=== PATIENT | male | born 1960 | race Caucasian/White ===

== ENCOUNTER 2019-08-11 18:03 | Emergency (ER) | payer MEDICARE, OTHER ==
[~2019-08-11] VITALS: Ht 190.5 cm; Wt 111.1 kg
--- OUTSIDE RECORDS SUMMARY | ~2019-08-11 | XMS | Encounter Summary ---
Demographics + + + | Address | [address] | | | [place] [address] | + + + | Home Phone | | + + + | Preferred Language | Unknown | + + + | Marital Status | | + + + | Judaism Affiliation | Unknown | + + + | Race | Unknown | + + + | Ethnic Group | Unknown | + + + Author + + + | Author | [facility] | | | and [place] | + + + | Organization | [facility] | | | and [place] | + + + | Address | Unknown | + + + | Phone | Unavailable | + + + Support + + +---------+ + | Name | Relationship | Address | Phone | + + +---------+ + | Zulema Moyer | ECON | Unknown | | + + +---------+ + Care Team Providers + +------+ + | Care Fingerer Name | Role | Phone | + +------+ + | Toi Hwang DO | PCP | | + +------+ + Encounter Details +--------+ + + + + | Date | Type | Department | Care Team | Description | +--------+ + + + + | 07/16/ | Orders Only | [facility] | Ulises Rocha, | | | 2017 | | [address] | [address] | | | | | [place], [place] | [facility], | | | | | [address] | [place] [address] | | | | | [phone] | [phone] | | | | | | | | +--------+ + + + + Social History + +-------+ +--------+------+ | Tobacco Use | Types | Packs/Day | Years | Date | | | | | Used | | + +-------+ +--------+------+ | Never Assessed | | | | | + +-------+ +--------+------+ + + + | Sex Assigned at | Date Recorded | | | | + + + | Not on file | | + + + + + + + | Job Start Date | Occupation | Industry | + + + + | Not on file | Not on file | Not on file | + + + + + + + + | Travel History | Travel Start | Travel End | + + + + + + | No recent travel history available. | + + documented as of this encounter Plan of Treatment Not on filedocumented as of this encounter Procedures + +--------+ + + + | Procedure Name | Priori | Date/Time | Associated Diagnosis | Comments | | | ty | | | | + +--------+ + + + | EXTERNAL LAB: [facility] | Routin | 07/16/2016 | | Results for this | | | e | 10:30 AM | | procedure are in the | | | | PDT | | results section. | + +--------+ + + + | LIPID PANEL | Routin | 07/16/2016 | | Results for this | | | e | 10:30 AM | | procedure are in the | | | | PDT | | results section. | + +--------+ + + + | COMPREHENSIVE | Routin | 07/16/2016 | | Results for this | | METABOLIC PANEL | e | 10:30 AM | | procedure are in the | | | | PDT | | results section. | + +--------+ + + + documented in this encounter Results External Lab: [facility] (07/16/2016 10:30 AM PDT) + + + + + + | Component | Value | Ref Range | Performed | Pathologist | | | | | At | Signature | + + + + + + | WBC | 8.10 | 3.80 - 11.00 | EXTERNAL | | | | | 10*3/uL | LAB | | + + + + + + | Red Blood | 5.46 | 4.20 - 5.70 | EXTERNAL | | | Cells | | 10*6/uL | LAB | | | Counted | | | | | + + + + + + | Hemoglobin | 16.7 | 13.2 - 17.0 | EXTERNAL | | | | | g/dL | LAB | | + + + + + + | Hematocrit, | 47.4 | 39.0 - 50.0 % | EXTERNAL | | | POC | | | LAB | | + + + + + + | MCV | 86.9 | 80.0 - 100.0 fL | EXTERNAL | | | | | | LAB | | + + + + + + | MCH | 30.6 | 27.0 - 34.0 pg | EXTERNAL | | | | | | LAB | | + + + + + + | MCHC | 35.2 | 32.0 - 35.5 | EXTERNAL | | | | | g/dL | LAB | | + + + + + + | RDW-CV | 49.4 | 37 - 53 fL | EXTERNAL | | | | | | LAB | | + + + + + + | Platelet | 150 | 150 - 400 | EXTERNAL | | | Count | | 10*3/uL | LAB | | | Plasma | | | | | + + + + + + | MPV | 9.8 | fL | EXTERNAL | | | | | | LAB | | + + + + + + | Differentia | AUTOMATED | | EXTERNAL | | | l Type | | | LAB | | + + + + + + | % Segmented | 66.09 | % | EXTERNAL | | | | | | LAB | | | Neutrophils | | | | | + + + + + + | % | 22.29 | % | EXTERNAL | | | Lymphocytes | | | LAB | | + + + + + + | % Monocytes | 7.79 | % | EXTERNAL | | | | | | LAB | | + + + + + + | % | 2.91 | % | EXTERNAL | | | Eosinophils | | | LAB | | + + + + + + | % Basophils | 0.92 | % | EXTERNAL | | | | | | LAB | | + + + + + + | Absolute | 5.35 | 1.90 - 7.40 | EXTERNAL | | | Segmented | | 10*3/uL | LAB | | | Neutrophils | | | | | + + + + + + | Absolute | 1.80 | 1.00 - 3.90 | EXTERNAL | | | Lymphocytes | | 10*3/uL | LAB | | + + + + + + | Absolute | 0.63 | 0.00 - 0.80 | EXTERNAL | | | Monocytes | | 10*3/uL | LAB | | + + + + + + | Absolute | 0.24 | 0.00 - 0.50 | EXTERNAL | | | Eosinophils | | 10*3/uL | LAB | | + + + + + + | Absolute | 0.07 | 0.00 - 0.10 | EXTERNAL | | | Basophils | | 10*3/uL | LAB | | + + + + + + + + | Specimen | + + | | + + + +---------+ + + | Performing | Address | City/State/Zipcode | Phone Number | | Organization | | | | + +---------+ + + | EXTERNAL LAB | | | | + +---------+ + + Lipid Panel (07/16/2016 10:30 AM PDT) + + + + + + | Component | Value | Ref Range | Performed | Pathologist | | | | | At | Signature | + + + + + + | Cholesterol | 117 | mg/dL | EXTERNAL | | | | | | LAB | | + + + + + + | Triglycerid | 559 (H) | mg/dL | EXTERNAL | | | es | | | LAB | | + + + + + + | HDL | 31 (L) | mg/dL | EXTERNAL | | | | | | LAB | | + + + + + + | LDL, | LDL NOT VALID WHEN TRIG | mg/dL | EXTERNAL | | | Calculated | >400 mg/dL | | LAB | | + + + + + + + + | Specimen | + + | | + + + +---------+ + + | Performing | Address | City/State/Zipcode | Phone Number | | Organization | | | | + +---------+ + + | EXTERNAL LAB | | | | + +---------+ + + Comprehensive Metabolic Panel (07/16/2016 10:30 AM PDT) + + + + + + | Component | Value | Ref Range | Performed | Pathologist | | | | | At | Signature | + + + + + + | Na | 139 | 135 - 145 | EXTERNAL | | | | | mmol/L | LAB | | + + + + + + | K | 4.0 | 3.5 - 4.9 | EXTERNAL | | | | | mmol/L | LAB | | + + + + + + | Cl | 106 | 99 - 109 mmol/L | EXTERNAL | | | | | | LAB | | + + + + + + | CO2 | 23 | 23 - 32 mmol/L | EXTERNAL | | | | | | LAB | | + + + + + + | Anion Gap | 14 | 5 - 20 mmol/L | EXTERNAL | | | | | | LAB | | + + + + + + | Glucose, | 247 (H) | 65 - 99 mg/dL | EXTERNAL | | | Fasting | | | LAB | | + + + + + + | BUN | 12 | 8 - 25 mg/dL | EXTERNAL | | | | | | LAB | | + + + + + + | Creatinine | 0.9 | 0.70 - 1.30 | EXTERNAL | | | | | mg/dL | LAB | | + + + + + + | BUN/Creatin | 13 | | EXTERNAL | | | ine Ratio | | | LAB | | + + + + + + | Calcium | 9.2 | 8.5 - 10.5 | EXTERNAL | | | | | mg/dL | LAB | | + + + + + + | Protein, | 6.6 | 6.3 - 8.2 g/dL | EXTERNAL | | | Total | | | LAB | | + + + + + + | Albumin | 3.7 | 3.6 - 5.0 g/dL | EXTERNAL | | | | | | LAB | | + + + + + + | Globulin | 2.9 | 1.3 - 4.9 g/dL | EXTERNAL | | | | | | LAB | | + + + + + + | A/G Ratio | 1.3 | 1.0 - 2.4 | EXTERNAL | | | | | | LAB | | + + + + + + | Bilirubin | 0.7 | 0.1 - 1.5 mg/dL | EXTERNAL | | | Total | | | LAB | | + + + + + + | ALP, | 118 (H) | 35 - 115 U/L | EXTERNAL | | | External | | | LAB | | + + + + + + | AST | 20 | 10 - 45 U/L | EXTERNAL | | | | | | LAB | | + + + + + + | ALT | 37 | 10 - 65 U/L | EXTERNAL | | | | | | LAB | | + + + + + + | Estimated | >60Comment: GFR <60: | mL/min/1.73_m2 | EXTERNAL | | | GFR | CHRONIC KIDNEY DISEASE, | | LAB | | | | IF FOUND OVER A 3 MONTH | | | | | | PERIOD. GFR <15: KIDNEY | | | | | | FAILURE. FOR | | | | | | AMERICANS, MULTIPLY THE | | | | | | CALCULATED GFR BY 1.210. | | | | + + + + + + + + | Specimen | + + | | + + + +---------+ + + | Performing | Address | City/State/Zipcode | Phone Number | | Organization | | | | + +---------+ + + | EXTERNAL LAB | | | | + +---------+ + + documented in this encounter Visit Diagnoses Not on filedocumented in this encounter"
--- OUTSIDE RECORDS SUMMARY | ~2019-08-11 | XMS ---
Demographics + + + | Address | [address] | | | [place] [address] | + + + | Preferred Language | Unknown | + + + | Marital Status | Unknown | + + + | Adventism Affiliation | Unknown | + + + | Race | Unknown | + + + | Ethnic Group | Unknown | + + + Author + + + | Author | [facility] | + + + | Organization | [facility] | + + + | Address | [address] | | | [place] [address] | + + + | Phone | | + + + Care Team Providers + + + + | Care Power Transformer Assembler Name | Role | Phone | + + + + Unavailable | Unavailable | + + + + PROBLEMS +---------+ + + +--------+ + + | Type | Condition | ICD9-CM | [id number] | Onset | Condition | SNOMED | | | | Code | Code | Dates | Status | Code | +---------+ + + +--------+ + + | Problem | H/O | Z95.2 | | | Active | [id number] | | | mechanical | | | | | 24310 | | | aortic | | | | | | | | valve | | | | | | | | replacemen | | | | | | | | t | | | | | | +---------+ + + +--------+ + + | Problem | Hypertensi | I11.9 | | | Active | [id number] | | | ve | | | | | | | | arterioscl | | | | | | | | erotic | | | | | | | | cardiovasc | | | | | | | | ular | | | | | | | | disease | | | | | | +---------+ + + +--------+ + + | Problem | ASHD | | I25.10 | | Active | [id number] | | | (arteriosc | | | | | | | | lerotic | | | | | | | | heart | | | | | | | | disease) | | | | | | +---------+ + + +--------+ + + | Problem | Type 2 | E11.65 | | | Active | [id number] | | | diabetes | | | | | 93618 | | | mellitus | | | | | | | | with | | | | | | | | hyperglyce | | | | | | | | mariola, | | | | | | | | without | | | | | | | | long-term | | | | | | | | current | | | | | | | | use of | | | | | | | | insulin | | | | | | +---------+ + + +--------+ + + | Problem | MELBA | G47.33 | | | Active | [id number] | | | (obstructi | | | | | | | | ve sleep | | | | | | | | apnea) | | | | | | +---------+ + + +--------+ + + | Problem | Chronic | | Z79.01 | | Active | [id number] | | | anticoagul | | | | | | | | ation | | | | | | +---------+ + + +--------+ + + | Problem | Screening | Z13.89 | | | Active | [id number] | | | for | | | | | | | | alcoholism | | | | | | +---------+ + + +--------+ + + | Problem | Type 2 | E11.65 | | | Active | [id number] | | | diabetes | | | | | 09186 | | | mellitus | | | | | | | | with | | | | | | | | hyperglyce | | | | | | | | mariola | | | | | | +---------+ + + +--------+ + + | Problem | Major | F32.9 | | | Active | [id number] | | | depressive | | | | | | | | disorder | | | | | | | | with | | | | | | | | single | | | | | | | | episode, | | | | | | | | remission | | | | | | | | status | | | | | | | | unspecifie | | | | | | | | d | | | | | | +---------+ + + +--------+ + + | Problem | Hypertrigl | | E78.1 | | Active | [id number] | | | yceridemia | | | | | | +---------+ + + +--------+ + + | Problem | half-way | Z79.4 | | | Active | [id number] | | | current | | | | | | | | use of | | | | | | | | insulin | | | | | | +---------+ + + +--------+ + + | Problem | S/P AVR | Z95.2 | | | Active | [id number] | | | | | | | | [address] | +---------+ + + +--------+ + + ALLERGIES Unknown Allergies SOCIAL HISTORY No smoking Hx information available PLAN OF CARE VITAL SIGNS MEDICATIONS + + + + + + + +--------+ | Medicati | Instruct | Dosage | Frequenc | Start | End Date | Duration | Status | | on | ions | | y | Date | | | | + + + + + + + +--------+ | Coumadin | Orally | 1 tablet | 24h | 29 Dec, | | 90 days | Active | | 5 MG | Once a | | | 2016 | | | | | | day | | | | | | | + + + + + + + +--------+ | Metoprol | Orally | 1 tablet | 24h | | | 90 days | Active | | ol | Once a | | | | | | | | Succinat | day | | | | | | | | e ER 100 | | | | | | | | | MG | | | | | | | | + + + + + + + +--------+ | Pepcid | Orally | 1 tablet | 12h | | | 90 days | Active | | 40 MG | twice a | | | | | | | | | day | | | | | | | + + + + + + + +--------+ RESULTS No Results PROCEDURES No Known procedures IMMUNIZATIONS No Known Immunizations"
--- OUTSIDE RECORDS SUMMARY | ~2019-08-11 | XMS | Encounter Summary ---
Demographics + + + | Address | [address] | | | [place] [address] | + + + | Home Phone | | + + + | Preferred Language | Unknown | + + + | Marital Status | | + + + | Amish Affiliation | Unknown | + + + | Race | Unknown | + + + | Ethnic Group | Unknown | + + + Author + + + | Author | [facility] | | | and [place] | + + + | Organization | [facility] | | | and [...] Team Providers + +------+ + | Care Summer Nanny Name | Role | Phone | + +------+ + | Toi Hwang DO | PCP | | + +------+ + Encounter Details +--------+ + + + + | Date | Type | Department | Care Team | Description | +--------+ + + + + | 11/06/ | Orders Only | [facility] | Ulises Rocha, | Dissection of | | 2019 | | [facility]ARDIOLOGY [facility] | [address] | thoracoabdominal | | | | [address] | [place], | aorta (HCC) | | | | [place], [place] | [place] [address] | | | | | [address] | [phone] | | | | | [phone] | | | +--------+ + + + + Social History + +-------+ +--------+------+ | Tobacco Use | Types | Packs/Day | Years | Date | | | | | Used | | + +-------+ +--------+------+ | Never Smoker | | | | | + +-------+ [...] as of this encounter Plan of Treatment + +------+--------+ + + | Name | Type | Priori | Associated Diagnoses | Order Schedule | | | | ty | | | + +------+--------+ + + | Creatinine | Lab | Routin | Dissection of | Expected: | | | | e | thoracoabdominal | 05/04/2018, Expires: | | | | | aorta (HCC) | 05/04/2019 | + +------+--------+ + + documented as of this encounter Visit Diagnoses + + | Diagnosis | + + | 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
--- OUTSIDE RECORDS SUMMARY | ~2019-08-11 | XMS | Encounter Summary ---
Demographics + + + | Address | [address] | | | [place] [address] | + + + | Home Phone | | + + + | Preferred Language | Unknown | + + + | Marital Status | | + + + | Gnosticism Affiliation | Unknown | + + + | Race | Unknown | + + + | Ethnic Group | Unknown | + + + Author + + + | Author | [facility] | | | and [place] | + + + | Organization | [facility] | | | and [place] | + + + | Address | Unknown | + + + | Phone | Unavailable | + + + Support + + +---------+ + | Name | Relationship | Address | Phone | + + +---------+ + | Zulema Rodas | ECON | Unknown | | + + +---------+ + Care Team Providers + +------+ + | Care Senior Front End Engineer Name | Role | Phone | + +------+ + | Toi Hwang DO | PCP | | + +------+ + Encounter Details +--------+ + + + + | Date | Type | Department | Care Team | Description | +--------+ + + + + | 05/01/ | Orders Only | [facility] | Maite Yen | | | 2018 | | [address] | [address] | | | | | [address] | [address] | | | | | [place], [place] | [place] [address] | | | | | [address] | [phone] | | | | | [phone] | | | +--------+ + + + [...] | + +--------+ + + + | ECHO INTERPRETATION | Routin | 05/01/2017 | | Results for this | | OF OUTSIDE FILMS | e | 9:13 AM | | procedure are in the | | | | PST | | results section. | + +--------+ + + + documented in this encounter Results ECHO Interpretation of Outside Films (05/01/2017 9:13 AM PST) + + | Specimen | + + | | + + + + + | Impressions | Performed At | + + + | 1. Overall left ventricular systolic function is normal with, an EF | | | between 55 - 60%. increased from an EF of 40-45% on the previous | | | echocardiographic study, done 07/16/16. There are segmental wall | | | motion abnormalities noted in the inferoseptal and apical gomez. 2. | | | The right ventricle is normal in size and function. 3. Normally | | | functioning mechanical prosthetic aortic valve. 4. 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 There is no change noted in comparison to the previous study. | | + + + + + + | Narrative | Performed At | + + + | Patient Name: VIDA RODAS Date of : 1960 | | | Performing Physician: EUSEBIA PERERA MD | | | | | | INDICATIONS AVR #25 mechanical aortic valve | | | CONCLUSIONS 1. Overall left ventricular systolic | | | function is normal with, an EF between 55 - 60%. increased from an EF | | | of 40-45% on the previous echocardiographic study, done 07/16/16. | | | There are segmental wall motion abnormalities noted in the | | | inferoseptal and apical gomez. 2. The right ventricle is normal in | | | size and function. 3. Normally functioning mechanical prosthetic | | | aortic valve. 4. The ascending aorta is dilated measuring up to 45 | | | mm. 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 There is no change noted in | | | comparison to the previous study. FINDINGS -------- ECG rhythm: | | | Sinus rhythm. Study: A 2-dimensional transthoracic echocardiogram | | | with m-mode, spectral and color flow Doppler was perfomed. Study: | | | This was a technically adequate study. Study: Suboptimal image | | | quality - poor subcostal views. Left Ventricle: Overall left | | | ventricular systolic function is normal with, an EF between 55 - 60%. | | | increased from an EF of 40-45% on the previous echocardiographic | | | study, done 07/16/16. There are segmental wall motion abnormalities | | | noted in the inferoseptal and apical gomez. Left Ventricle: The | | | left ventricle cavity size is normal. Left Ventricle: There is mild | | | concentric left ventricular hypertrophy. Left Ventricle: No regional | | | wall motion abnormalities. Left Ventricle: The diastolic filling | | | pattern indicates impaired relaxation consistent with mild dysfunction | | | (Grade I), which is normal for the patient's age. Left Ventricle: | | | The following regional wall motion abnormalities include: Left | | | Ventricle: mid inferoseptal - mildly hypokinetic; Left Ventricle: | | | apical septum - moderately hypokinetic; Left Ventricle: apex - | | | severely hypokinetic; Left Ventricle: The remaining left ventricular | | | segments contract normally. Right Ventricle: The right ventricle is | | | normal in size and function. Left Atrium: The left atrial size is | | | normal. Right Atrium: The right atrial size is normal. Aortic Valve: | | | Trace amount of aortic regurgitation. Aortic Valve: Normally | | | functioning mechanical prosthetic valve. 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 Mitral Valve: There is | | | trace mitral regurgitation. Mitral Valve: No evidence of MVP or | | | mitral stenosis. Tricuspid Valve: The tricuspid valve appears | | | structurally normal. Tricuspid Valve: Trace tricuspid regurgitation | | | present. Tricuspid Valve: Pulmonary artery systolic pressure could | | | not be assessed due to the absence of adequate TR jet. Pulmonic | | | Valve: The pulmonic valve is normal. Pulmonic Valve: Trace-mild | | | pulmonic regurgitation. Pericardium: There is no pericardial | | | effusion. IVC/Hepatic Veins: The IVC was not well visualized. 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 Aorta: A | | | linear density, representing a dissection flap, is seen in the upper | | | ascending aorta, arch, and upper descending aorta (he has a history of | | | a DeBakey type 1 - Florencio type A -dissection) known to extend into | | | the abdominal aorta. There is no change noted in comparison to the | | | previous study. Mass: No mass visualized Thrombus: No clot | | | visualized Thrombus: No vegetation visualized. Septum: No ASD | | | observed. Septum: No VSD observed. MEASUREMENTS | | | Ao asc: 4.14 cm Ao Diam: 3.23 cm Ao sinus: 3.[address] | | | junct: 3.07 cm LA Diam: 4.60 cm LA Major: 5.00 cm | | | EDV(Teich): 124.52 ml IVSd: 1.19 cm LVIDd: 5.11 cm LVPWd: | | | 1.24 cm LVOT Area: 4.71 cm2 LVOT Diam: 2.45 cm %FS: | | | 28.62 % EF(Teich): 54.83 % ESV(Teich): 56.23 ml LVIDs: | | | 3.64 cm SV(Teich): 68.28 ml RA Major: 4.80 cm RV Major: | | | 7.79 cm RVIDd: 2.65 cm LVEF MOD A2C: 60.18 % SV MOD A2C: | | | 72.71 ml LVEF MOD A4C: 54.47 % SV MOD A4C: 70.33 ml EF | | | Biplane: 56.54 % LVEDV MOD BP: 128.15 ml LVESV MOD BP: | | | 55.68 ml LVEDV MOD A2C: 120.82 ml LVLd A2C: 8.67 cm LVEDV MOD | | | A4C: 129.10 ml LVLd A4C: 9.16 cm LVESV MOD A2C: 48.10 ml | | | LVLs A2C: 7.15 cm LVESV MOD A4C: 58.76 ml LVLs A4C: 7.94 cm | | | LAESV(A-L): 50.79 ml LAESV Index (A-L): 21.07 ml/m2 LAAs | | | A2C: 18.47 cm2 LAESV A-L A2C: 52.14 ml LALs A2C: 5.55 cm | | | LAAs A4C: 16.29 cm2 LAESV A-L A4C: 44.81 ml LALs A4C: 5.02 | | | cm RAAs: 16.55 cm2 RAESV A-L: 48.05 ml RAESV MOD: 46.85 ml | | | RALs: 4.83 cm TAPSE: 1.63 cm AV maxP.38 mmHg AV | | | meanP.95 mmHg AV Vmax: 2.31 m/s AV Vmean: 1.55 m/s AV | | | VTI: 46.15 cm CAROLINE Vmax: 1.51 cm2 CAROLINE (VTI): 1.53 cm2 AVAI | | | Vmax: 0.00 cm2/m2 AVAI (VTI): 0.00 cm2/m2 LVOT maxP.19 | | | mmHg LVOT meanP.15 mmHg LVSI Dopp: 29.37 ml/m2 LVSV | | | Dopp: 70.79 ml LVOT Vmax: 0.74 m/s LVOT Vmean: 0.49 m/s | | | LVOT VTI: 15.00 cm MV A Aj: 0.70 m/s MV DecT: 185.48 ms | | | MV E Aj: 0.64 m/s MV E/A Ratio: 0.91 MV PHT: 53.78 ms MVA | | | By PHT: 4.09 cm2 Septal e': 0.05 m/s Septal E/e': 10.77 | | | Lateral e': 0.11 m/s Lateral E/e': 5.68 Corrugated Box Machine Operator: | | | Authenticated by: EUSEBIA PERERA MD Report Date/Time: 05-01-2017 | | | 11:39:16 | | + + + + + | Procedure Note | + + | Twan, Rad Conversion - 11/12/2018 5:05 PM PDT Patient Name: Duyen RODAS | | of : 1960 Performing Physician: EUSEBIA PERERA, | | INDICATIONS A | | VR #25 mechanical aortic valve CONCLUSIONS 1. Overall left ventricular | | systolic function is normal with, an EF between 55 - 60%. increased from an EF of 40-45% | | on the previous echocardiographic study, done 07/16/16. There are segmental wall motion | | abnormalities noted in the inferoseptal and apical gomez.2. The right ventricle is | | normal in size and function.3. Normally functioning mechanical prosthetic aortic | | valve.4. 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 A linear density, | | representing a dissection flap, is seen in the upper ascending aorta, arch, and upper | | descending aorta (he has a history of a DeBakey type 1 - Fl[place]ncio type A -dissection) | | known to extend into the abdominal aorta. There is no change noted in comparison to the | | previous study. FINDINGS--------ECG rhythm: Sinus rhythm.Study: A 2-dimensional | | transthoracic echocardiogram with m-mode, spectral and color flow Doppler was | | perfomed.Study: This was a technically adequate study.Study: Suboptimal image quality - | | poor subcostal views.Left Ventricle: Overall left ventricular systolic function is | | normal with, an EF between 55 - 60%. increased from an EF of 40-45% on the previous | | echocardiographic study, done 07/16/16. There are segmental wall motion abnormalities | | noted in the inferoseptal and apical gomez.Left Ventricle: The left ventricle cavity | | size is normal.Left Ventricle: There is mild concentric left ventricular | | hypertrophy.Left Ventricle: No regional wall motion abnormalities.Left Ventricle: The | | diastolic filling pattern indicates impaired relaxation consistent with mild dysfunction | | (Grade I), which is normal for the patient's age.Left Ventricle: The following regional | | wall motion abnormalities include:Left Ventricle: mid inferoseptal - mildly | | hypokinetic;Left Ventricle: apical septum - moderately hypokinetic;Left Ventricle: apex | | - severely hypokinetic;Left Ventricle: The remaining left ventricular segments contract | | normally.Right Ventricle: The right ventricle is normal in size and function.Left | | Atrium: The left atrial size is normal.Right Atrium: The right atrial size is | | normal.Aortic Valve: Trace amount of aortic regurgitation.Aortic Valve: Normally | | functioning mechanical prosthetic valve.Mitral Valve: Mitral valve is thickened with | | myxomatous degeneration.Mitral Valve: There is trace mitral regurgitation.Mitral Valve: | | No evidence of MVP or mitral stenosis.Tricuspid Valve: The tricuspid valve appears | | structurally normal.Tricuspid Valve: Trace tricuspid regurgitation present.Tricuspid | | Valve: Pulmonary artery systolic pressure could not be assessed due to the absence of | | adequate TR jet.Pulmonic Valve: The pulmonic valve is normal.Pulmonic Valve: Trace-mild | | pulmonic regurgitation.Pericardium: There is no pericardial effusion.IVC/Hepatic Veins: | | The IVC was not well visualized.Aorta: The ascending aorta is dilated measuring up to 45 | | mm.Aorta: A linear density, representing a dissection flap, is seen in the upper | | ascending aorta, arch, and upper descending aorta (he has a history of a DeBakey type 1 | | - [place]io type A -dissection) known to extend into the abdominal aorta. There is no | | change noted in comparison to the previous study.Mass: No mass visualizedThrombus: No | | clot visualizedThrombus: No vegetation visualized.Septum: No ASD observed.Septum: No VSD | | observed. MEASUREMENTS Ao asc: 4.14 cmAo Diam: 3.23 cmAo sinus: 3.03 | | cmAo st junct: 3.07 cmLA Diam: 4.60 cmLA Major: 5.00 cmEDV(Teich): 124.52 | | mlIVSd: 1.19 cmLVIDd: 5.11 cmLVPWd: 1.24 cmLVOT Area: 4.71 [id number] Diam: 2.45 | | cm%FS: 28.62 %EF(Teich): 54.83 %ESV(Teich): 56.23 mlLVIDs: 3.64 cmSV(Teich): | | 68.28 mlRA Major: 4.80 cmRV Major: 7.79 cmRVIDd: 2.65 cmLVEF MOD A2C: 60.18 %SV | | MOD A2C: 72.71 mlLVEF MOD A4C: 54.47 %SV MOD A4C: 70.33 mlEF Biplane: 56.54 | | %LVEDV MOD BP: 128.15 mlLVESV MOD BP: 55.68 mlLVEDV MOD A2C: 120.82 mlLVLd A2C: | | 8.67 cmLVEDV MOD A4C: 129.10 mlLVLd A4C: 9.16 cmLVESV MOD A2C: 48.10 mlLVLs A2C: | | 7.15 cmLVESV MOD A4C: 58.76 mlLVLs A4C: 7.94 cmLAESV(A-L): 50.79 mlLAESV Index | | (A-L): 21.07 ml/m2LAAs A2C: 18.47 [id number] A-L A2C: 52.14 mlLALs A2C: 5.55 | | cmLAAs A4C: 16.29 [id number] A-L A4C: 44.81 mlLALs A4C: 5.02 cmRAAs: 16.55 | | [id number] A-L: 48.05 mlRAESV MOD: 46.85 mlRALs: 4.83 cmTAPSE: 1.63 cmAV maxPG: | | 21.38 mmHgAV meanP.95 mmHgAV Vmax: 2.31 m/Gila Vmean: 1.55 m/Gila VTI: 46.15 | | cmAVA Vmax: 1.51 cm2AVA (VTI): 1.53 [id number] Vmax: 0.00 cm2/m2AVAI (VTI): 0.00 | | cm2/m2LVOT maxP.19 mmHgLVOT meanP.15 mmHgLVSI Dopp: 29.37 ml/m2LVSV Dopp: | | 70.79 mlLVOT Vmax: 0.74 m/sLVOT Vmean: 0.49 m/sLVOT VTI: 15.00 cmMV A Aj: | | 0.70 m/sMV DecT: 185.48 msMV E Aj: 0.64 m/sMV E/A Ratio: 0.91MV PHT: 53.78 | | msMVA By PHT: 4.09 [id number] e': 0.05 m/sSeptal E/e': 10.77Lateral e': 0.11 | | m/sLateral E/e': 5.68 Corrugated Box Machine Operator:Authenticated by: Carlos DEAL Date/Time: | | 05-01-2017 11:39:16 IMPRESSION: 1. Overall left ventricular systolic function is normal | | with, an EF between 55 - 60%. increased from an EF of 40-45% on the previous | | echocardiographic study, done 07/16/16. There are segmental wall motion abnormalities | | noted in the inferoseptal and apical gomez.2. The right ventricle is normal in size and | | function.3. Normally functioning mechanical prosthetic aortic valve.4. The ascending | | aorta is dilated measuring up to 45 mm. A linear density, representing a dissection | | flap, is seen in the upper ascending aorta, arch, and upper descending aorta (he has a | | history of a DeBakey type 1 - [place] type A -dissection) known to extend into the | | abdominal aorta. There is no change noted in comparison to the previous study. | |LA Major: 5.00 cm | |EDV(Teich): 124.52 ml | |IVSd: 1.19 cm | |LVIDd: 5.11 cm | |LVPWd: 1.24 cm | |LVOT Area: 4.71 cm2 | |LVOT Diam: 2.45 cm | |%FS: 28.62 % | |EF(Teich): 54.83 % | |ESV(Teich): 56.23 ml | |LVIDs: 3.64 cm | |SV(Teich): 68.28 ml | |RA Major: 4.80 cm | |RV Major: 7.79 cm | |RVIDd: 2.65 cm | |LVEF MOD A2C: 60.18 % | |SV MOD A2C: 72.71 ml | |LVEF MOD A4C: 54.47 % | |SV MOD A4C: 70.33 ml | |EF Biplane: 56.54 % | |LVEDV MOD BP: 128.15 ml | |LVESV MOD BP: 55.68 ml | |LVEDV MOD A2C: 120.82 ml | |LVLd A2C: 8.67 cm | |LVEDV MOD A4C: 129.10 ml | |LVLd A4C: 9.16 cm | |LVESV MOD A2C: 48.10 ml | |LVLs A2C: 7.15 cm | |LVESV MOD A4C: 58.76 ml | |LVLs A4C: 7.94 cm | |LAESV(A-L): 50.79 ml | |LAESV Index (A-L): 21.07 ml/m2 | |LAAs A2C: 18.47 cm2 | |LAESV A-L A2C: 52.14 ml | |LALs A2C: 5.55 cm | |LAAs A4C: 16.29 cm2 | |LAESV A-L A4C: 44.81 ml | |LALs A4C: 5.02 cm | |RAAs: 16.55 cm2 | |RAESV A-L: 48.05 ml | |RAESV MOD: 46.85 ml | |RALs: 4.83 cm | |TAPSE: 1.63 cm | |AV maxP.38 mmHg | |AV meanP.95 mmHg | |AV Vmax: 2.31 m/s | |AV Vmean: 1.55 m/s | |AV VTI: 46.15 cm | |CAROLINE Vmax: 1.51 cm2 | |CAROLINE (VTI): 1.53 cm2 | |AVAI Vmax: 0.00 cm2/m2 | |AVAI (VTI): 0.00 cm2/m2 | |LVOT maxP.19 mmHg | |LVOT meanP.15 mmHg | |LVSI Dopp: 29.37 ml/m2 | |LVSV Dopp: 70.79 ml | |LVOT Vmax: 0.74 m/s | |LVOT Vmean: 0.49 m/s | |LVOT VTI: 15.00 cm | |MV A Aj: 0.70 m/s | |MV DecT: 185.48 ms | |MV E Aj: 0.64 m/s | |MV E/A Ratio: 0.91 | |MV PHT: 53.78 ms | |MVA By PHT: 4.09 cm2 | |Septal e': 0.05 m/s | |Septal E/e': 10.77 | |Lateral e': 0.11 m/s | |Lateral E/e': 5.68 | | | |Corrugated Box Machine Operator: | |Authenticated by: EUSEBIA PERERA MD | |Report Date/Time: 05-01-2017 11:39:16 | | | |IMPRESSION: | |1. Overall left ventricular systolic function is normal with, an EF between 55 - 60%. incre ased from an EF of 40-45% on the previous echocardiographic study, done 07/16/16. There are segmental wall motion abnormalities noted in the inferoseptal and | |apical gomez. | |2. The right ventricle is normal in size and function. | |3. Normally functioning mechanical prosthetic aortic valve. | |4. 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 A linear density, representing a dissection flap, is seen in the upper ascending aorta, arch, and upper descending aorta (he has a history of a DeBakey | |type 1 - [place] type A -dissection) known | |to extend into the abdominal aorta. There is no change noted in comparison to the previous study. | + + documented in this encounter Visit Diagnoses Not on filedocumented in this encounter"
--- OUTSIDE RECORDS SUMMARY | ~2019-08-11 | XMS | Encounter Summary ---
Demographics + + + | Address | [address] | | | [place] [address] | + + + | Home Phone | | + + + | Preferred Language | Unknown | + + + | Marital Status | | + + + | Christianity Affiliation | Unknown | + + + | Race | Unknown | + + + | Ethnic Group | Unknown | + + + Author + + + | Author | [facility] | | | and [place] | + + + | Organization | [facility] | | | and [...] Team Providers + +------+ + | Care Director Channel Name | Role | Phone | + +------+ + PCP | Unavailable | + +------+ + Encounter Details +--------+ + + + + | Date | Type | Department | Care Team | Description | +--------+ + + + + | 04/17/ | Orders Only | [facility] | Ulises Rocha, | | | 2018 | | CARDIOLOGY [place] | [address] | | | | | [address] | [place], | | | | | [place] | [place] [address] | | | | | [address] | [phone] | | | | | [phone] | | | +--------+ + + + [...] + | LIPID PANEL | Routin | 04/17/2018 | | Results for this | | | e | 2:28 PM | | procedure are in the | | | | PST | | results section. | + +--------+ + + + | COMPREHENSIVE | Routin | 04/17/2018 | | Results for this | | METABOLIC PANEL | e | 2:28 PM | | procedure are in the | | | | PST | | results section. | + +--------+ + + + documented in this encounter Results Lipid Panel (04/17/2018 2:28 PM PST) + + + + + + | Component | Value | Ref Range | Performed | Pathologist | | | | | At | Signature | + + + + + + | Cholesterol | 93 | 200 mg/dL | EXTERNAL | | | | | | LAB | | + + + + + + | Triglycerid | 282 (A) | 30 - 150 mg/dL | EXTERNAL | | | es | | | LAB | | + + + + + + | HDL | 26.3 (A) | 40 mg/dl | EXTERNAL | | | | | | LAB | | + + + + + + | LDL, | 10 | 100 mg/dL | EXTERNAL | | | Calculated | | | LAB | | + + + + + + | LDl/HDL | | | EXTERNAL | | | Ratio | | | LAB | | + + + + + + | Chol/HDL | 3.5 | 4.97 | EXTERNAL | | | Ratio | | | LAB | | + + + + + + | VLDL | 56 (A) | 4 - 40 mg/dL | EXTERNAL | | | | | | LAB | | + + + + + + | Non HDL | 67 | 130 | EXTERNAL | | | Chol. | | | LAB | | | (LDL+VLDL) | | | | | + + + + + + + + | Specimen | + + | Blood specimen | | (specimen) | + + + +---------+ + + | Performing | Address | City/State/Zipcode | Phone Number | | Organization | | | | + +---------+ + + | EXTERNAL LAB | | | | + +---------+ + + Comprehensive Metabolic Panel (04/17/2018 2:28 PM PST) + +---------+ + + + | Component | Value | Ref Range | Performed | Pathologist | | | | | At | Signature | + +---------+ + + + | Glucose, | 145 (A) | 70 - 100 mg/dL | EXTERNAL | | | Fasting | | | LAB | | + +---------+ + + + | BUN | 13 | 6 - 23 mg/dL | EXTERNAL | | | | | | LAB | | + +---------+ + + + | Creatinine | 1.04 | 0.70 - 1.33 | EXTERNAL | | | | | mg/dL | LAB | | + +---------+ + + + | BUN/Creatin | 12.5 | 6.0 - 28.6 | EXTERNAL | | | ine Ratio | | | LAB | | + +---------+ + + + | Calcium | 9.4 | 8.5 - 10.3 | EXTERNAL | | | | | mg/dL | LAB | | + +---------+ + + + | Protein, | 6.5 | 6.0 - 8.3 g/dL | EXTERNAL | | | Total | | | LAB | | + +---------+ + + + | Albumin | 4.1 | 3.5 - 5.0 | EXTERNAL | | | | | | LAB | | + +---------+ + + + | Globulin | 2.4 | 1.8 - 3.5 | EXTERNAL | | | | | | LAB | | + +---------+ + + + | A/G Ratio | 1.7 | 1.1 - 2.4 | EXTERNAL | | | | | | LAB | | + +---------+ + + + | Bilirubin | 0.7 | 0.0 - 1.2 mg/dL | EXTERNAL | | | Total | | | LAB | | + +---------+ + + + | ALP, | 66 | 31 - 120 | EXTERNAL | | | External | | | LAB | | + +---------+ + + + | ALT | 34 | 7 - 52 U/L | EXTERNAL | | | | | | LAB | | + +---------+ + + + | AST | 30 | 13 - 39 U/L | EXTERNAL | | | | | | LAB | | + +---------+ + + + | Na | 142 | 132 - 143 | EXTERNAL | | | | | mmol/L | LAB | | + +---------+ + + + | K | 3.9 | 3.6 - 5.1 | EXTERNAL | | | | | mmol/L | LAB | | + +---------+ + + + | Cl | 106 | 95 - 112 mmol/L | EXTERNAL | | | | | | LAB | | + +---------+ + + + | CO2 | 23 | 19 - 31 mmol/L | EXTERNAL | | | | | | LAB | | + +---------+ + + + | Anion Gap | 16.9 | 7 - 21 mmol/L | EXTERNAL | | | | | | LAB | | + +---------+ + + + | Estimated | 73 | 60 mg/dL | EXTERNAL | | | GFR | | | LAB | | + +---------+ + + + + + | Specimen | + + | Blood specimen | | (specimen) | + + + +---------+ + + | Performing | Address | City/State/Zipcode | Phone Number | | Organization | | | | + +---------+ + + | EXTERNAL LAB | | | | + +---------+ + + documented in this encounter Visit Diagnoses Not on filedocumented in this encounter"
--- OUTSIDE RECORDS SUMMARY | ~2019-08-11 | XMS | Encounter Summary ---
Demographics + + + | Address | [address] | | | [place] [address] | + + + | Home Phone | | + + + | Preferred Language | Unknown | + + + | Marital Status | | + + + | Anabaptist Affiliation | Unknown | + + + | Race | Unknown | + + + | Ethnic Group | Unknown | + + + Author + + + | Author | [facility] | | | and [place] | + + + | Organization | [facility] | | | and [...] Team Providers + +------+ + | Care Bilingual Trainer Name | Role | Phone | + +------+ + | Toi Hwang DO | PCP | | + +------+ + Encounter Details +--------+ + + + + | Date | Type | Department | Care Team | Description | +--------+ + + + + | 06/11/ | Orders Only | [facility] | Conversion | | | 2017 | | CONVERSION [address] | Transaction, | | | | | [address] | Provider Unknown | | | | | [place], [place] | [phone] | | | | | [address] | | | | | | [phone] | | | +--------+ + + + [...] Not on filedocumented as of this encounter Visit Diagnoses Not on filedocumented in this encounter"
--- OUTSIDE RECORDS SUMMARY | ~2019-08-11 | XMS | Encounter Summary ---
Demographics + + + | Address | [address] | | | [place] [address] | + + + | Home Phone | | + + + | Preferred Language | Unknown | + + + | Marital Status | | + + + | Worship Affiliation | Unknown | + + + | Race | Unknown | + + + | Ethnic Group | Unknown | + + + Author + + + | Author | [facility] | | | and [place] | + + + | Organization | [facility] | | | and [...] Team Providers + +------+ + | Care Talent Assistant Name | Role | Phone | + +------+ + | Toi Hwang DO | PCP | | + +------+ + Encounter Details +--------+ + + + + | Date | Type | Department | Care Team | Description | +--------+ + + + + | 11/06/ | Orders Only | [facility] | Ulises Rocha, | Dissection of | | 2019 | | CARDIOLOGY [place] | [address] | thoracoabdominal | | | | [address] | [place], | aorta (HCC) | | | | [place], [place] | [place] [address] | | | | | [address] | [phone] | | | | | [phone] | | | +--------+ + + + [...]
--- OUTSIDE RECORDS SUMMARY | ~2019-08-11 | XMS | Encounter Summary ---
Demographics + + + | Address | [address] | | | [place] [address] | + + + | Home Phone | | + + + | Preferred Language | Unknown | + + + | Marital Status | | + + + | Zoroastrian Affiliation | Unknown | + + + | Race | Unknown | + + + | Ethnic Group | Unknown | + + + Author + + + | Author | [facility] | | | and [place] | + + + | Organization | [facility] | | | and [place] | + + + | Address | Unknown | + + + | Phone | Unavailable | + + + Support + + +---------+ + | Name | Relationship | Address | Phone | + + +---------+ + | Zulema Comfort | ECON | Unknown | | + + +---------+ + Care Team Providers + +------+ + | Care Circus Artist Name | Role | Phone | + +------+ + PCP | Unavailable | + +------+ + Encounter Details +--------+ + + + + | Date | Type | Department | Care Team | Description | +--------+ + + + + | 07/16/ | Hospital | [facility] | Conversion | Thoracic aortic | | 2017 | Encounter | [facility] [address] | Transaction, | dissection (HCC) | | | | [address] | Provider Unknown | | | | | [place] | [phone] | | | | | [address] | | | | | | [phone] | Eusebia Rocha MD | | | | | | [address] | | | | | | [place], [place] | | | | | | [address] | | | | | | | [...] + + documented as of this encounter Medications at Time of Discharge + + + +---------+ + + | Medication | Sig | Dispensed | Refills | Start | End Date | | | | | | Date | | + + + +---------+ + + | famotidine | Take 40 mg by mouth | | 0 | 06/12/19 | | | (PEPCID) 40 MG | 2 (two) times daily. | | | 17 | | | tablet | | | | | | + + + +---------+ + + | warfarin | Take 5 mg by mouth | | 0 | 06/12/19 | | | (COUMADIN) 5 mg | daily. 5 mg Everyday | | | 17 | | | tablet | ,except wed takes | | | | | | | 2.5 mg, targer INR | | | | | | | 2-3 , followed by | | | | | | | SNOW coumadin clnic | | | | | + + + +---------+ + + documented as of this encounter Plan of Treatment Not on filedocumented as of this encounter Procedures + +--------+ + + + | Procedure Name | Priori | Date/Time | Associated Diagnosis | Comments | | | ty | | | | + +--------+ + + + | CT ANGIOGRAM CHEST | Routin | 07/16/2016 | | Results for this | | ABDOMEN PELVIS | e | 11:24 AM | | procedure are in the | | | | PDT | | results section. | + +--------+ + + + | CT ANGIOGRAM NECK W | Routin | 07/16/2016 | | Results for this | | CONTRAST | e | 11:24 AM | | procedure are in the | | | | PDT | | results section. | + +--------+ + + + documented in this encounter Results CT Angiogram Chest Abdomen Pelvis w Contrast (07/16/2016 11:24 AM PDT) + + | Specimen | + + | | + + + + + | Impressions | Performed At | + + + | 1. Extensive type A aortic dissection seen from the ascending | | | aorta to the left common femoral artery. The dissection also appears | | | to extend to the brachiocephalic artery and the left renal artery. The | | | lumen and false lumen appear patent throughout the majority of the | | | dissection. The true lumen appears patent and also appears occluded | | | and the right common iliac artery. 2. 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 3. . Dissection extends into | | | the right femoral artery which appears widely patent. Left renal | | | artery appears to arise from the false lumen appears widely patent. | | | 4. Hepatic and renal hypodensities seen, majority of which are too | | | small to characterize. These potentially represent cysts. Attention on | | | follow-up examinations is suggested. 5. Urinary bladder calculi | | | seen. | | | 12:27 PM | | + + + + + + | Narrative | Performed At | + + + | [facility] 1960 55 years Male CTA CHEST ABDOMEN | | | PELVIS W CONTRAST 07/16/2016 11:24 AM HISTORY: Thoracic aortic | | | dissection. TECHNIQUE: 5-mm axial images of the chest, abdomen | | | and pelvis were acquired without contrast. Subsequently axial 0.625 | | | mm arterial phase images were acquired through the chest, abdomen and | | | pelvis according to a CT angiography protocol. Then 5-mm axial | | | venous phase images of the abdomen and pelvis were acquired. | | | Multiplanar CT angiographic MIP reconstructions were performed from | | | the arterial phase data set. 3-D reconstructions were performed | | | using the [employer] 3-D software and sent to PACS. Radiation dose | | | reduction performed with automated exposure control. Oral | | | Contrast: None IV contrast: 100 mL IsoVue 370 COMPARISON: None | | | FINDINGS: CT angiogram findings: Within the chest, there is a type | | | A thoracic aortic dissection seen extending from the ascending aorta, | | | through the arch and subsequently into the descending aorta. Within | | | the chest, the aneurysm extends into the brachiocephalic artery and | | | the left subclavian artery. The brachiocephalic artery demonstrates | | | aneurysmal dilatation up to 3.2 cm. However the, the true lumen and | | | false lumen appear patent within the aorta as well as the | | | brachiocephalic and left superior and arteries. Overall, no | | | narrowing noted involving the brachiocephalic, subclavian and the | | | common carotid arteries. Within the abdomen and pelvis, the | | | dissection extends inferiorly into the left common iliac artery and | | | subsequently terminates in the left common femoral artery. The true | | | lumen appears patent while the false lumen appears occluded in the | | | right common iliac artery. The external iliac arteries, internal | | | iliac arteries, common femoral arteries and the visualized superficial | | | femoral arteries appear patent bilaterally without evidence of | | | narrowing. The celiac trunk demonstrates mild narrowing of its | | | origin with post stenotic dilatation. However it appears patent. The | | | SMA and JOSEPH also appear patent. These arteries appear to arise from | | | the true lumen. The dissection appears to extend to the right | | | renal artery which appears widely patent. Left renal artery appears to | | | arise from the false lumen appears widely patent. CT chest, | | | abdomen and pelvis findings: The lungs appear clear. No pneumothorax | | | or pleural effusion seen. No cardiomegaly or pericardial effusion | | | noted. Patient appears to be post aortic valve repair. No enlarged | | | mediastinal or hilar lymph nodes by CT size criteria seen. No | | | pericardial effusion noted. Patient is poststernotomy. No acute or | | | destructive osseous process seen. Within the liver, there are 8-10 | | | small subcentimeter hypodensity seen, which are too small to | | | accurately characterize. Hypodensity noted posteriorly in the right | | | lobe on series 4, image 26 measures 1.6 cm in size and likely | | | represents a cyst. Patient is postcholecystectomy. Pancreas, spleen, | | | adrenal glands appear unremarkable. Within the kidneys, there are | | | small subcentimeter hypodensities seen, too small to accurately | | | characterize. 1.8 cm hypodensity in the upper pole of the right kidney | | | on series 4, image 35 is also too small to accurate characterize, | | | but potentially represents a cyst. No free air, bowel obstruction, | | | ileus or fluid collection seen. Small amount of stool in the colon. | | | No enlarged retroperitoneal or mesenteric lymph nodes by CT size | | | criteria seen. No acute or destructive osseous process noted. | | | Appendix is seen on series 4, image 58 and appears unremarkable. 3-4 | | | subcentimeter calculi noted within the urinary bladder. These measure | | | 5 to 6 mm in size. No enlarged pelvic lymph nodes by CT size criteria | | | seen. No pelvic fluid collection noted. | | + + + + + | Procedure Note | + + | Twan, Rad Conversion - 11/05/2018 6:18 AM PDT VIDA [age]TON[age]G years | | MaleCTA CHEST ABDOMEN PELVIS W CONTRAST07/16/2016 11:24 AM HISTORY: Thoracic aortic | | dissection. TECHNIQUE:5-mm axial images of the chest, abdomen and pelvis were acquired | | without contrast. Subsequently axial 0.625 mm arterial phase images were acquired | | through the chest, abdomen and pelvis according to a CT angiography protocol. Then 5-mm | | axial venous phase images of the abdomen and pelvis were acquired. Multiplanar CT | | angiographic MIP reconstructions were performed from the arterial phase data set. 3-D | | reconstructions were performed using the [employer] 3-D software and sent to PACS. | | Radiation dose reduction performed with automated exposure control. Oral Contrast: | | NoneIV contrast: 100 mL IsoVue 370 COMPARISON: None FINDINGS:CT angiogram findings: | | Within the chest, there is a type A thoracic aortic dissection seen extending from the | | ascending aorta, through the arch and subsequently into the descending aorta. Within the | | chest, the aneurysm extends into the brachiocephalic artery and the left subclavian | | artery. The brachiocephalic artery demonstrates aneurysmal dilatation up to 3.2 cm. | | However the, the true lumen and false lumen appear patent within the aorta as well as | | the brachiocephalic and left superior and arteries. Overall, no narrowing noted | | involving the brachiocephalic, subclavian and the common carotid arteries. Within the | | abdomen and pelvis, the dissection extends inferiorly into the left common iliac artery | | and subsequently terminates in the left common femoral artery. The true lumen appears | | patent while the false lumen appears occluded in the right common iliac artery. The | | external iliac arteries, internal iliac arteries, common femoral arteries and the | | visualized superficial femoral arteries appear patent bilaterally without evidence of | | narrowing. The celiac trunk demonstrates mild narrowing of its origin with post stenotic | | dilatation. However it appears patent. The SMA and JOSEPH also appear patent. These | | arteries appear to arise from the true lumen. The dissection appears to extend to the | | right renal artery which appears widely patent. Left renal artery appears to arise from | | the false lumen appears widely patent. CT chest, abdomen and pelvis findings:The lungs | | appear clear. No pneumothorax or pleural effusion seen. No cardiomegaly or pericardial | | effusion noted. Patient appears to be post aortic valve repair. No enlarged mediastinal | | or hilar lymph nodes by CT size criteria seen. No pericardial effusion noted. Patient is | | poststernotomy. No acute or destructive osseous process seen. Within the liver, there | | are 8-10 small subcentimeter hypodensity seen, which are too small to accurately | | characterize. Hypodensity noted posteriorly in the right lobe on series 4, image 26 | | measures 1.6 cm in size and likely represents a cyst. Patient is postcholecystectomy. | | Pancreas, spleen, adrenal glands appear unremarkable. Within the kidneys, there are | | small subcentimeter hypodensities seen, too small to accurately characterize. 1.8 cm | | hypodensity in the upper pole of the right kidney on series 4, image 35 is also too | | small to accurate characterize, but potentially represents a cyst. No free air, bowel | | obstruction, ileus or fluid collection seen. Small amount of stool in the colon. No | | enlarged retroperitoneal or mesenteric lymph nodes by CT size criteria seen. No acute or | | destructive osseous process noted. Appendix is seen on series 4, image 58 and appears | | unremarkable. 3-4 subcentimeter calculi noted within the urinary bladder. These measure | | 5 to 6 mm in size. No enlarged pelvic lymph nodes by CT size criteria seen. No pelvic | | fluid collection noted. IMPRESSION: 1. Extensive type A aortic dissection seen from the | | ascending aorta to the left common femoral artery. The dissection also appears to | | extend to the brachiocephalic artery and the left renal artery. The lumen and false | | lumen appear patent throughout the majority of the dissection. The true lumen appears | | patent and also appears occluded and the right common iliac artery.2. Aneurysmal | | dilatation of the brachycephalic artery up to 3.2 cm.3. . Dissection extends into the | | right femoral artery which appears widely patent. Left renal artery appears to arise | | from the false lumen appears widely patent.4. Hepatic and renal hypodensities seen, | | majority of which are too small to characterize. These potentially represent cysts. | | Attention on follow-up examinations is suggested.5. Urinary bladder calculi seen. | | | | | + + CT Angiogram Neck w Contrast (07/16/2016 11:24 AM PDT) + + | Specimen | + + | | + + + + + | Impressions | Performed At | + + + | 1. [place] type A dissection which is described in entirety on a | | | separate report from the same day. 2. Carotid arteries remain | | | widely patent, without significant hemodynamic stenosis. 3. | | | Dissection involves the left subclavian artery which remains patent. | | | NASCET criteria was used to determine the degree of carotid | | | stenosis were applicable. Results were called to Dr. EUSEBIA Jones | | | TREVER on 07/16/2016 1:00 PM, (time of day is approximated). | | | | | + + + + + + | Narrative | Performed At | + + + | [facility] 1960 55 years Male CTA NECK W WO CONTRAST | | | 07/16/2016 11:24 AM HISTORY: Thoracic aortic dissection | | | COMPARISON: None. TECHNIQUE: Axial 1.25 mm arterial phase images | | | were acquired through the neck according to a CT angiography protocol. | | | Multiplanar CT angiographic MIP reconstructions were performed from | | | the arterial phase data set by the ct technologist. Dose reduction | | | techniques were used including automated exposure control, iterative | | | reconstruction technique, and/or automated adjustable mAs based on | | | patient size. IV contrast: 100 mL IsoVue 370 FINDINGS: There is a | | | thoracic aortic dissection involving the descending aorta, arch, | | | descending thoracic aorta and abdominal aorta which is described in | | | entirety on the chest abdomen pelvis report from the same day. | | | Dissection slightly extends to involve the brachiocephalic artery | | | (coronal image 81) with aneurysmal dilatation of the false lumen which | | | measures 2.2 x 2.0 cm (series 3, image 212). The brachiocephalic | | | artery and its branches remain widely patent. The left common | | | carotid artery arises from the true lumen and remains widely patent. | | | The dissection extends to involve the subclavian artery proximally | | | (coronal image 97 and series 3, image 175). The subclavian artery | | | remains patent. The right common carotid artery is patent from its | | | origin to its bifurcation, without significant hemodynamic stenosis. | | | The right internal carotid artery remains widely patent, without | | | significant hemodynamic stenosis. The left common carotid artery | | | is patent from its origin to its bifurcation, without significant | | | hemodynamic. The left internal carotid artery is widely patent, | | | without significant hemodynamic stenosis. There is tortuosity of | | | the internal carotid arteries bilaterally. The left vertebral | | | artery arises from the true lumen of the left subclavian and is | | | tortuous in course, but widely patent | | + + + + + | Procedure Note | + + | Twan, Rad Conversion - 11/05/2018 6:18 AM PDT VIDA RODAS years | | MaleCTA NECK W WO CONTRAST07/16/2016 11:24 AM HISTORY: Thoracic aortic dissection | | COMPARISON: None. TECHNIQUE:Axial 1.25 mm arterial phase images were acquired through | | the neck according to a CT angiography protocol. Multiplanar CT angiographic MIP | | reconstructions were performed from the arterial phase data set by the ct technologist. | | Dose reduction techniques were used including automated exposure control, iterative | | reconstruction technique, and/or automated adjustable mAs based on patient size.IV | | contrast: 100 mL IsoVue 370 FINDINGS: There is a thoracic aortic dissection involving | | the descending aorta, arch, descending thoracic aorta and abdominal aorta which is | | described in entirety on the chest abdomen pelvis report from the same day. Dissection | | slightly extends to involve the brachiocephalic artery (coronal image 81) with | | aneurysmal dilatation of the false lumen which measures 2.2 x 2.0 cm (series 3, image | | 212). The brachiocephalic artery and its branches remain widely patent. The left common | | carotid artery arises from the true lumen and remains widely patent. The dissection | | extends to involve the subclavian artery proximally (coronal image 97 and series 3, | | image 175). The subclavian artery remains patent. The right common carotid artery is | | patent from its origin to its bifurcation, without significant hemodynamic stenosis. The | | right internal carotid artery remains widely patent, without significant hemodynamic | | stenosis. The left common carotid artery is patent from its origin to its bifurcation, | | without significant hemodynamic. The left internal carotid artery is widely patent, | | without significant hemodynamic stenosis. There is tortuosity of the internal carotid | | arteries bilaterally. The left vertebral artery arises from the true lumen of the left | | subclavian and is tortuous in course, but widely patent IMPRESSION: 1. [place] type A | | dissection which is described in entirety on a separate report from the same day.2. | | Carotid arteries remain widely patent, without significant hemodynamic stenosis.3. | | Dissection involves the left subclavian artery which remains patent. NASCET criteria was | | used to determine the degree of carotid stenosis were applicable. Results were called | | to Dr. EUSEBIA ROCHA on 07/16/2016 1:00 PM, (time of day is approximated). | | | |IMPRESSION: | |1. Fl[place]io type A dissection which is described in entirety on a separate report from the same day. | |2. Carotid arteries remain widely patent, without significant hemodynamic stenosis. | |3. Dissection involves the left subclavian artery which remains patent. | | | |NASCET criteria was used to determine the degree of carotid stenosis were applicable. | | | |Results were called to Dr. EUSEBIA ROCHA on 07/16/2016 1:00 PM, (time of day is approximat ed). | | | | | + + documented in this encounter Visit Diagnoses + + | Diagnosis | + + | Thoracic aortic dissection (HCC) Dissection of aorta, thoracic | + + documented in this encounter"
--- OUTSIDE RECORDS SUMMARY | ~2019-08-11 | XMS | Encounter Summary ---
Demographics + + + | Address | [address] | | | [place] [address] | + + + | Home Phone | | + + + | Preferred Language | Unknown | + + + | Marital Status | | + + + | Church Affiliation | Unknown | + + + | Race | Unknown | + + + | Ethnic Group | Unknown | + + + Author + + + | Author | [facility] | | | and [place] | + + + | Organization | [facility] | | | [...] Team Providers + +------+ + | Care Cable Mechanic Name | Role | Phone | + +------+ + | Toi Hwang DO | PCP | | + +------+ + Reason for Visit +---------+ + | Reason | Comments | +---------+ + | Testing | | +---------+ + Encounter Details +--------+ + + + + | Date | Type | Department | Care Team | Description | +--------+ + + + + | 03/23/ | Telephone | [facility] | Maite Yen | Testing | | 2019 | | [facility] [place] | [address] | | | | | [address] | [address] | | | | | [address] | [place] [address] | | | | | [place] | [phone] | | | | | [address] | | | | | | [phone] | | | +--------+ + + + + Social History + +-------+ +--------+------+ | Tobacco Use | Types | Packs/Day | Years | Date | | | | | Used | | + +-------+ +--------+------+ | Never Smoker | | | | | + +-------+ +--------+------+ + +---+---+---+ | Smokeless Tobacco: | | | | | Never Used | | | | + +---+---+---+ + + + | Sex Assigned at [...]
--- OUTSIDE RECORDS SUMMARY | ~2019-08-11 | XMS | Encounter Summary ---
Demographics + + + | Address | [address] | | | [place] [address] | + + + | Home Phone | | + + + | Preferred Language | Unknown | + + + | Marital Status | | + + + | Zoroastrian Affiliation | Unknown | + + + | Race | Unknown | + + + | Ethnic Group | Unknown | + + + Author + + + | Author | [facility] | | | and [place] | + + + | Organization | [facility] | | | [...] Team Providers + +------+ + | Care Outpatient Coordinator Name | Role | Phone | + +------+ + | Toi Hwang DO | PCP | | + +------+ + Encounter Details +--------+ + + + + | Date | Type | Department | Care Team | Description | +--------+ + + + + | 07/16/ | Orders Only | [facility] | Eusebia Rocha, | | | 2017 | | CARDIOLOGY [facility] | MD [address] | | | | | ECHO [address] | [place], | | | | | [address] [place] | [place] [address] | | | | | [address] | [phone] | | | | | [phone] | | | +--------+ + + + [...] + +--------+ + + + | ECHO COMPLETE | Routin | 07/16/2016 | | Results for this | | | e | 2:56 PM | | procedure are in the | | | | PDT | | results section. | + +--------+ + + + documented in this encounter Results ECHO Complete (07/16/2016 2:56 PM PDT) + + | Specimen | + + | | + + + + + | Impressions | Performed At | + + + | 1. Overall left ventricular systolic function is mild-moderately | | | impaired with, an EF between 40 - 45 %. There are septal and apical | | | wall motion abnormalities noted. 2. The diastolic filling pattern | | | indicates impaired relaxation consistent with mild dysfunction (Grade | | | I). 3. The right ventricle is normal in size and function. 4. | | | Normally functioning mechanical prosthetic aortic valve. 5. 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 | | + + + + + + | Narrative | Performed At | + + + | Patient Name: ORION RODAS Date of : 1960 | | | Performing Physician: EUSEBIA ROCHA MD | | | | | | INDICATIONS #25 Mechanical aortic valve, Thoracic aortic | | | dissection CONCLUSIONS 1. Overall left ventricular | | | systolic function is mild-moderately impaired with, an EF between 40 - | | | 45 %. There are septal and apical wall motion abnormalities noted. | | | 2. The diastolic filling pattern indicates impaired relaxation | | | consistent with mild dysfunction (Grade I). 3. The right ventricle is | | | normal in size and function. 4. Normally functioning mechanical | | | prosthetic aortic valve. 5. Distal to ascending aortic graft, the | | | ascending aorta is aneurysmal, measured at 4.6 cm. A linear density, | | | representing a dissection flap, is seen in the upper ascending aorta, | | | arch, and upper descending aorta (he has a history of a DeBakey type | | | 1 - Florencio type A -dissection) extending to the abdominal aorta, | | | in which a dissection is also visible. FINDINGS -------- ECG | | | rhythm: Sinus rhythm with an IVCD. Study: A 2-dimensional | | | transthoracic echocardiogram with m-mode, spectral and color flow | | | Doppler was perfomed. Study: This was a technically adequate study. | | | Left Ventricle: Overall left ventricular systolic function is | | | mild-moderately impaired with, an EF between 40 - 45 %. Left | | | Ventricle: The left ventricle cavity size is normal. Left Ventricle: | | | There is mild concentric left ventricular hypertrophy. Left | | | Ventricle: There is mild global hypokinesis of LV contractility. Left | | | Ventricle: There is paradoxical/dysynergic septal motion consistent | | | with post-operative status. Left Ventricle: The diastolic filling | | | pattern indicates impaired relaxation consistent with mild dysfunction | | | (Grade I). Left Ventricle: False Tendon visualized in the LV Left | | | Ventricle: The following regional wall motion abnormalities include: | | | Left Ventricle: basal anteroseptal - moderately hypokinetic; Left | | | Ventricle: mid anteroseptal - moderately hypokinetic; Left Ventricle: | | | mid inferoseptal - mildly hypokinetic; Left Ventricle: anterior apex | | | - severely hypokinetic; Left Ventricle: apical septum- akinetic; | | | Left Ventricle: inferior apex - severely hypokinetic; Left Ventricle: | | | apex - severely hypokinetic; Left Ventricle: The remaining left | | | ventricular segments contract normally. Right Ventricle: The right | | | ventricle is normal in size and function. Left Atrium: The left | | | atrium is normal in size. Right Atrium: The right atrium is normal in | | | size. Aortic Valve: There is no evidence of aortic regurgitation. | | | Aortic Valve: There is no evidence of aortic stenosis. Aortic Valve: | | | The aortic valve area by continuity equation is 2.3cm Aortic | | | Valve: Normally functioning mechanical prosthetic valve. Mitral | | | Valve: The mitral valve is normal. Mitral Valve: There is trace | | | mitral regurgitation. Tricuspid Valve: The tricuspid valve appears | | | structurally normal. Tricuspid Valve: Trace tricuspid regurgitation | | | present. Tricuspid Valve: Pulmonary artery systolic pressure could | | | not be assessed due to the absence of adequate TR jet. Pulmonic | | | Valve: The pulmonic valve is normal. Pulmonic Valve: Trace pulmonic | | | regurgitation. Pericardium: There is no pericardial effusion. | | | IVC/Hepatic Veins: The IVC is normal size (1.5-2.5cm) and collapses | | | >50% with sniff, consistent with central venous pressures of 5-10mmHg. | | | Aorta: Distal to ascending aortic graft, the ascending aorta is | | | aneurysmal, measured at 4.6 cm. A linear density, representing a | | | dissection flap, is seen in the upper ascending aorta, arch, and upper | | | descending aorta (he has a history of a DeBakey type 1 - Florencio | | | type A -dissection) extending to the abdominal aorta, in which a | | | dissection is also visible. Mass: No mass visualized Thrombus: No | | | clot visualized Thrombus: No vegetation visualized. Septum: No ASD | | | observed. Septum: No VSD observed. MEASUREMENTS | | | Ao asc: 4.[address] junct: 3.01 cm IVC: 1.59 cm LA | | | Major: 4.15 cm EDV(Teich): 133.63 ml IVSd: 1.07 cm LVIDd: | | | 5.27 cm LVPWd: 1.08 cm LVOT Area: 4.78 cm2 LVOT Diam: | | | 2.46 cm %FS: 21.22 % EF(Teich): 42.76 % ESV(Teich): 76.48 | | | ml LVIDs: 4.15 cm SV(Teich): 57.14 ml RA Major: 4.34 cm | | | RV Major: 7.98 cm RVIDd: 2.87 cm Ao Root: 3.19 cm Ao Diam | | | SVals: 3.27 cm LVEF MOD A2C: 40.41 % SV MOD A2C: 58.07 ml | | | LVEF MOD A4C: 42.84 % SV MOD A4C: 66.72 ml EF Biplane: | | | 41.38 % LVEDV MOD BP: 151.94 ml LVESV MOD BP: 89.06 ml LVEDV | | | MOD A2C: 143.69 ml LVLd A2C: 9.17 cm LVEDV MOD A4C: 155.72 | | | ml LVLd A4C: 9.63 cm LVESV MOD A2C: 85.61 ml LVLs A2C: | | | 8.86 cm LVESV MOD A4C: 89.00 ml LVLs A4C: 8.82 cm LAESV(A-L): | | | 39.79 ml LAESV Index (A-L): 17.08 ml/m2 LAAs A2C: 17.41 | | | cm2 LAESV A-L A2C: 57.33 ml LALs A2C: 4.48 cm LAAs A4C: | | | 11.37 cm2 LAESV A-L A4C: 26.00 ml LALs A4C: 4.22 cm RAAs: | | | 14.31 cm2 RAESV A-L: 37.22 ml RAESV MOD: 35.25 ml RALs: | | | 4.66 cm TAPSE: 2.05 cm AV maxP.24 mmHg AV meanPG: | | | 6.51 mmHg AV Vmax: 1.67 m/s AV Vmean: 1.21 m/s AV VTI: | | | 31.84 cm CAROLINE Vmax: 2.47 cm2 CAROLINE (VTI): 2.30 cm2 LVOT maxPG: | | | 3.01 mmHg LVOT meanP.49 mmHg LVSI Dopp: 31.49 ml/m2 | | | LVSV Dopp: 73.38 ml LVOT Vmax: 0.86 m/s LVOT Vmean: 0.55 | | | m/s LVOT VTI: 15.33 cm MV A Aj: 0.79 m/s MV Dec Harvey: | | | 1.95 m/s2 MV DecT: 216.18 ms MV E Aj: 0.42 m/s MV E/A Ratio: | | | 0.53 MV PHT: 62.69 ms MVA By PHT: 3.50 cm2 Septal e': | | | 0.04 m/s Septal E/e': 8.55 Lateral e': 0.12 m/s Lateral E/e': | | | 3.50 [employer] Functional Analyst: LUÍS Authenticated by: EUSEBIA ROCHA MD | | | Report Date/Time: -- [id number]:37 | | + + + + + | Procedure Note | + + | Twan, Rad Conversion - 11/12/2018 7:57 PM PDT Patient Name: Duyen RODAS | | of : 1960 Performing Physician: EUSEBIA ROCHA, | | INDICATIONS # | | 25 Mechanical aortic valve, Thoracic aortic dissection CONCLUSIONS 1. Overall | | left ventricular systolic function is mild-moderately impaired with, an EF between 40 - | | 45 %. There are septal and apical wall motion abnormalities noted.2. The diastolic | | filling pattern indicates impaired relaxation consistent with mild dysfunction (Grade | | I).3. The right ventricle is normal in size and function.4. Normally functioning | | mechanical prosthetic aortic valve.5. Distal to ascending aortic graft, the ascending | | aorta is aneurysmal, measured at 4.6 cm. A linear density, representing a dissection | | flap, is seen in the upper ascending aorta, arch, and upper descending aorta (he has a | | history of a DeBakey type 1 - Florencio type A -dissection) extending to the abdominal | | aorta, in which a dissection is also visible. FINDINGS--------ECG rhythm: Sinus rhythm | | with an IVCD.Study: A 2-dimensional transthoracic echocardiogram with m-mode, spectral | | and color flow Doppler was perfomed.Study: This was a technically adequate study.Left | | Ventricle: Overall left ventricular systolic function is mild-moderately impaired with, | | an EF between 40 - 45 %.Left Ventricle: The left ventricle cavity size is normal.Left | | Ventricle: There is mild concentric left ventricular hypertrophy.Left Ventricle: There | | is mild global hypokinesis of LV contractility.Left Ventricle: There is | | paradoxical/dysynergic septal motion consistent with post-operative status.Left | | Ventricle: The diastolic filling pattern indicates impaired relaxation consistent with | | mild dysfunction (Grade I).Left Ventricle: False Tendon visualized in the LVLeft | | Ventricle: The following regional wall motion abnormalities include:Left Ventricle: | | basal anteroseptal - moderately hypokinetic;Left Ventricle: mid anteroseptal - | | moderately hypokinetic;Left Ventricle: mid inferoseptal - mildly hypokinetic;Left | | Ventricle: anterior apex - severely hypokinetic;Left Ventricle: apical septum- | | akinetic;Left Ventricle: inferior apex - severely hypokinetic;Left Ventricle: apex - | | severely hypokinetic;Left Ventricle: The remaining left ventricular segments contract | | normally.Right Ventricle: The right ventricle is normal in size and function.Left | | Atrium: The left atrium is normal in size.Right Atrium: The right atrium is normal in | | size.Aortic Valve: There is no evidence of aortic regurgitation.Aortic Valve: There is | | no evidence of aortic stenosis.Aortic Valve: The aortic valve area by continuity | | equation is 2.3cm Aortic Valve: Normally functioning mechanical prosthetic | | valve.Mitral Valve: The mitral valve is normal.Mitral Valve: There is trace mitral | | regurgitation.Tricuspid Valve: The tricuspid valve appears structurally normal.Tricuspid | | Valve: Trace tricuspid regurgitation present.Tricuspid Valve: Pulmonary artery systolic | | pressure could not be assessed due to the absence of adequate TR jet.Pulmonic Valve: | | The pulmonic valve is normal.Pulmonic Valve: Trace pulmonic regurgitation.Pericardium: | | There is no pericardial effusion.IVC/Hepatic Veins: The IVC is normal size (1.5-2.5cm) | | and collapses >50% with sniff, consistent with central venous pressures of | | 5-10mmHg.Aorta: Distal to ascending aortic graft, 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 A linear density, representing a dissection flap, is seen in the | | upper ascending aorta, arch, and upper descending aorta (he has a history of a DeBakey | | type 1 - Pelham type A -dissection) extending to the abdominal aorta, in which a | | dissection is also visible.Mass: No mass visualizedThrombus: No clot visualizedThrombus: | | No vegetation visualized.Septum: No ASD observed.Septum: No VSD observed. | | MEASUREMENTS Ao asc: 4.[address] junct: 3.01 cmIVC: 1.59 cmLA Major: | | 4.15 cmEDV(Teich): 133.63 mlIVSd: 1.07 cmLVIDd: 5.27 cmLVPWd: 1.08 cmLVOT | | Area: 4.78 [id number] Diam: 2.46 cm%FS: 21.22 %EF(Teich): 42.76 %ESV(Teich): | | 76.48 mlLVIDs: 4.15 cmSV(Teich): 57.14 mlRA Major: 4.34 cmRV Major: 7.98 | | cmRVIDd: 2.87 cmAo Root: 3.19 cmAo Diam SVals: 3.27 cmLVEF MOD A2C: 40.41 %SV | | MOD A2C: 58.07 mlLVEF MOD A4C: 42.84 %SV MOD A4C: 66.72 mlEF Biplane: 41.38 | | %LVEDV MOD BP: 151.94 mlLVESV MOD BP: 89.06 mlLVEDV MOD A2C: 143.69 mlLVLd A2C: | | 9.17 cmLVEDV MOD A4C: 155.72 mlLVLd A4C: 9.63 cmLVESV MOD A2C: 85.61 mlLVLs A2C: | | 8.86 cmLVESV MOD A4C: 89.00 mlLVLs A4C: 8.82 cmLAESV(A-L): 39.79 mlLAESV Index | | (A-L): 17.08 ml/m2LAAs A2C: 17.41 [id number] A-L A2C: 57.33 mlLALs A2C: 4.48 | | cmLAAs A4C: 11.37 [id number] A-L A4C: 26.00 mlLALs A4C: 4.22 cmRAAs: 14.31 | | [id number] A-L: 37.22 mlRAESV MOD: 35.25 mlRALs: 4.66 cmTAPSE: 2.05 cmAV maxPG: | | 11.24 mmHgAV meanP.51 mmHgAV Vmax: 1.67 m/Gila Vmean: 1.21 m/Gila VTI: 31.84 | | cmAVA Vmax: 2.47 cm2AVA (VTI): 2.30 [id number] maxP.01 mmHgLVOT meanP.49 | | mmHgLVSI Dopp: 31.49 ml/m2LVSV Dopp: 73.38 mlLVOT Vmax: 0.86 m/sLVOT Vmean: 0.55 | | m/sLVOT VTI: 15.33 cmMV A Aj: 0.79 m/sMV Dec Harvey: 1.95 m/s2MV DecT: 216.18 | | msMV E Aj: 0.42 m/sMV E/A Ratio: 0.53MV PHT: 62.69 msMVA By PHT: 3.50 [id number] | | e': 0.04 m/sSeptal E/e': 8.55Lateral e': 0.12 m/sLateral E/e': 3.50 | | [employer] Functional Analyst: DHAuthenticated by: Carlos DEAL Date/Time: -- | | [id number]:37 IMPRESSION: 1. Overall left ventricular systolic function is | | mild-moderately impaired with, an EF between 40 - 45 %. There are septal and apical | | wall motion abnormalities noted.2. The diastolic filling pattern indicates impaired | | relaxation consistent with mild dysfunction (Grade I).3. The right ventricle is normal | | in size and function.4. Normally functioning mechanical prosthetic aortic valve.5. 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 | | A linear density, representing a dissection flap, is seen in the upper ascending | | aorta, arch, and upper descending aorta (he has a history of a DeBakey type 1 - Florencio | | type A -dissection) extending to the abdominal aorta, in which a dissection is also | | visible. | |IVSd: 1.07 cm | |LVIDd: 5.27 cm | |LVPWd: 1.08 cm | |LVOT Area: 4.78 cm2 | |LVOT Diam: 2.46 cm | |%FS: 21.22 % | |EF(Teich): 42.76 % | |ESV(Teich): 76.48 ml | |LVIDs: 4.15 cm | |SV(Teich): 57.14 ml | |RA Major: 4.34 cm | |RV Major: 7.98 cm | |RVIDd: 2.87 cm | |Ao Root: 3.19 cm | |Ao Diam SVals: 3.27 cm | |LVEF MOD A2C: 40.41 % | |SV MOD A2C: 58.07 ml | |LVEF MOD A4C: 42.84 % | |SV MOD A4C: 66.72 ml | |EF Biplane: 41.38 % | |LVEDV MOD BP: 151.94 ml | |LVESV MOD BP: 89.06 ml | |LVEDV MOD A2C: 143.69 ml | |LVLd A2C: 9.17 cm | |LVEDV MOD A4C: 155.72 ml | |LVLd A4C: 9.63 cm | |LVESV MOD A2C: 85.61 ml | |LVLs A2C: 8.86 cm | |LVESV MOD A4C: 89.00 ml | |LVLs A4C: 8.82 cm | |LAESV(A-L): 39.79 ml | |LAESV Index (A-L): 17.08 ml/m2 | |LAAs A2C: 17.41 cm2 | |LAESV A-L A2C: 57.33 ml | |LALs A2C: 4.48 cm | |LAAs A4C: 11.37 cm2 | |LAESV A-L A4C: 26.00 ml | |LALs A4C: 4.22 cm | |RAAs: 14.31 cm2 | |RAESV A-L: 37.22 ml | |RAESV MOD: 35.25 ml | |RALs: 4.66 cm | |TAPSE: 2.05 cm | |AV maxP.24 mmHg | |AV meanP.51 mmHg | |AV Vmax: 1.67 m/s | |AV Vmean: 1.21 m/s | |AV VTI: 31.84 cm | |CAROLINE Vmax: 2.47 cm2 | |CAROLINE (VTI): 2.30 cm2 | |LVOT maxP.01 mmHg | |LVOT meanP.49 mmHg | |LVSI Dopp: 31.49 ml/m2 | |LVSV Dopp: 73.38 ml | |LVOT Vmax: 0.86 m/s | |LVOT Vmean: 0.55 m/s | |LVOT VTI: 15.33 cm | |MV A Aj: 0.79 m/s | |MV Dec Harvey: 1.95 m/s2 | |MV DecT: 216.18 ms | |MV E Aj: 0.42 m/s | |MV E/A Ratio: 0.53 | |MV PHT: 62.69 ms | |MVA By PHT: 3.50 cm2 | |Septal e': 0.04 m/s | |Septal E/e': 8.55 | |Lateral e': 0.12 m/s | |Lateral E/e': 3.50 | | | |[employer] Functional Analyst: | |Authenticated by: EUSEBIA ROCHA MD | |Report Date/Time: [id number]:37 | | | |IMPRESSION: | |1. Overall left ventricular systolic function is mild-moderately impaired with, an EF betwe en 40 - 45 %. There are septal and apical wall motion abnormalities noted. | |2. The diastolic filling pattern indicates impaired relaxation consistent with mild dysfunc tion (Grade I). | |3. The right ventricle is normal in size and function. | |4. Normally functioning mechanical prosthetic aortic valve. | |5. 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 A linear density, representing a dissection flap, is seen in the upper ascending aorta, ar ch, and upper descending aorta (he | |has a history of a DeBakey type 1 - | |Florencio type A -dissection) extending to the abdominal aorta, in which a dissection is als o visible. | + + documented in this encounter Visit Diagnoses Not on filedocumented in this encounter"
--- OUTSIDE RECORDS SUMMARY | ~2019-08-11 | XMS | Encounter Summary ---
Demographics + + + | Address | [address] | | | [place] [address] | + + + | Home Phone | | + + + | Preferred Language | Unknown | + + + | Marital Status | | + + + | Episcopalian Affiliation | Unknown | + + + | Race | Unknown | + + + | Ethnic Group | Unknown | + + + Author + + + | Author | [facility] | | | and [place] | + + + | Organization | [facility] | | | [...] Team Providers + +------+ + | Care Gas Torch Brazier Name | Role | Phone | + +------+ + | Toi Hwang DO | PCP | | + +------+ + Encounter Details +--------+ + + + + | Date | Type | Department | Care Team | Description | +--------+ + + + + | 11/10/ | Orders Only | [facility] | Ulises Rocha, | Dissection of | | 2019 | | CARDIOLOGY [place] | [address] | thoracoabdominal | | | | [address] | [place], | aorta (HCC) (Primary | | | | [place], [place] | [place] [address] | Dx) | | | | [address] | [phone] | | | | | [phone] | | | +--------+ + + + [...] | | + +------+--------+ + + | Misc Lab Referral | Lab | Routin | Dissection of | 1 Occurrences | | | | e | thoracoabdominal | starting 11/10/2018 | | | | | aorta (HCC) | until 05/04/2019 | + +------+--------+ + + documented as of this encounter Visit Diagnoses + + | Diagnosis | + + | 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
--- OUTSIDE RECORDS SUMMARY | ~2019-08-11 | XMS | Encounter Summary ---
Demographics + + + | Address | [address] | | | [place] [address] | + + + | Home Phone | | + + + | Preferred Language | Unknown | + + + | Marital Status | | + + + | Anabaptism Affiliation | Unknown | + + + | Race | Unknown | + + + | Ethnic Group | Unknown | + + + Author + + + | Author | [facility] | | | and [place] | + + + | Organization | [facility] | | | [...] Team Providers + +------+ + | Care Manager Unix Name | Role | Phone | + +------+ + | Toi Hwang DO | PCP | | + +------+ + Reason for Visit +---------+ + | Reason | Comments | +---------+ + | Results | | +---------+ + Encounter Details +--------+ + + + + | Date | Type | Department | Care Team | Description | +--------+ + + + + | 05/05/ | Telephone | [facility] | Maite Yen | Results | | 2020 | | CARDIOLOGY [place] | [address] | | | | | [address] | [address] | | | | | [address] | [place] [address] | | | | | [place] | [phone] | | | | | [address] | | | | | | [phone] | | | +--------+ + + + [...]
--- OUTSIDE RECORDS SUMMARY | ~2019-08-11 | XMS | Encounter Summary ---
Demographics + + + | Address | [address] | | | [place] [address] | + + + | Home Phone | | + + + | Preferred Language | Unknown | + + + | Marital Status | | + + + | Orthodoxy Affiliation | Unknown | + + + | Race | Unknown | + + + | Ethnic Group | Unknown | + + + Author + + + | Author | [facility] | | | and [place] | + + + | Organization | [facility] | | [...] Team Providers + +------+ + | Care Whittling Room Operator Name | Role | Phone | + +------+ + | Toi Hwang DO | PCP | | + +------+ + Encounter Details +--------+ + + + + | Date | Type | Department | Care Team | Description | +--------+ + + + + | 11/12/ | Orders Only | [facility] | Rasheed Martinez | | | 2018 | | [facility] [place] | MD Khari [address] | | | | | CARDIOLOGY [address] | | | | | [facility] | [place] [address] | | | | | [place], [place] | [phone] | | | | | [address] | | | | | | [phone] | | | +--------+ + + + [...]
--- OUTSIDE RECORDS SUMMARY | ~2019-08-11 | XMS | Clinical Summary ---
Demographics + + + | Address | [address] | | | [place] [address] | + + + | Home Phone | | + + + | Preferred Language | Unknown | + + + | Marital Status | | + + + | Restorationism Affiliation | Unknown | + + + | Race | Unknown | + + + | Ethnic Group | Unknown | + + + Author + + + | Author | [facility] | | | and [place] | + + + | Organization | [facility] | | [...] Team Providers + +------+ + | Care Food Preparer Name | Role | Phone | + +------+ + | Toi Hwang DO | PCP | | + +------+ + Allergies + + + + + + | Active Allergy | Reactions | Severity | Noted | Comments | | | | | Date | | + + + + + + | Heparin | Other (See Comments) | High | 06/12/19 | Thrombocytop, | | | | | 17 | "kills my platelets" | + + + + + + | Venlafaxine | Other (See Comments) | Medium | 08/15/19 | diaphoresis | | | | | 13 | | + + + + + + Medications + + + +---------+------+------+-------+ | Medication | Sig | Dispensed | Refills | Star | End | Statu | | | | | | t | Date | s | | | | | | Date | | | + + + +---------+------+------+-------+ | atorvaSTATin | TAKE 1 TABLET | 90 | 3 | 08/0 | | Activ | | (LIPITOR) 80 MG | NIGHTLY | tablet | | 11/10 | | e | | tablet | | | | 19 | | | + + + +---------+------+------+-------+ | warfarin | Take 5 mg by mouth | | 0 | 03/2 | | Activ | | (COUMADIN) 5 mg | daily. 5 mg Everyday | | | 120 | | e | | tablet | ,except wed takes | | | 17 | | | | | 2.5 mg, targer INR | | | | | | | | 2-3 , followed by | | | | | | | | [facility] coumadin clnic | | | | | | + + + +---------+------+------+-------+ | famotidine | Take 40 mg by mouth | | 0 | 03/2 | | Activ | | (PEPCID) 40 MG | 2 (two) times daily. | | | 120 | | e | | tablet | | | | 17 | | | + + + +---------+------+------+-------+ | losartan (COZAAR) | Take 25 mg by mouth | | 0 | 01/0 | | Activ | | 25 mg tablet | daily. | | | 20 | | e | | | | | | 18 | | | + + + +---------+------+------+-------+ | metFORMIN | Take 500 mg by mouth | | 0 | 01/0 | | Activ | | (GLUCOPHAGE) 500 mg | daily with | | | 8/20 | | e | | tablet | breakfast. | | | 18 | | | + + + +---------+------+------+-------+ | insulin lispro | Inject 15 Units into | | 0 | 01/0 | | Activ | | (HUMALOG KWIKPEN) | the skin 3 (three) | | | 8/20 | | e | | 100 units/mL | times daily with | | | 18 | | | | injection (pen) | meals. With meals | | | | | | + + + +---------+------+------+-------+ | insulin degludec | Inject 80 Units into | | 0 | 01/0 | | Activ | | (TRESIBA FLEXTOUCH) | the skin daily. | | | 8/20 | | e | | 200 units/mL | | | | 18 | | | | concentrated | | | | | | | | injection (pen) | | | | | | | + + + +---------+------+------+-------+ | aspirin 81 MG EC | Take 81 mg by mouth | | 0 | 05/2 | | Activ | | tablet | daily with | | | 2/20 | | e | | | breakfast. | | | 18 | | | + + + +---------+------+------+-------+ | rOPINIRole | Take 0.5 mg by mouth | | 0 | 11/2 | | Activ | | (REQUIP) 0.5 MG | nightly. | | | 20 | | e | | tablet | | | | 18 | | | + + + +---------+------+------+-------+ | liraglutide | Inject into the | | 0 | 11/2 | | Activ | | (VICTOZA) 18 mg/3 mL | skin daily. | | | 20 | | e | | injection | | | | 18 | | | + + + +---------+------+------+-------+ | icosapent ethyl | Take by mouth. | | 0 | 04/0 | | Activ | | (VASCEPA) 1 g | | | | 20 | | e | | capsule | | | | 19 | | | + + + +---------+------+------+-------+ | loperamide | Take 2 mg by mouth 4 | | 0 | | | Activ | | (IMODIUM) 2 mg | times daily as | | | | | e | | capsule | needed for Diarrhea. | | | | | | + + + +---------+------+------+-------+ | Melatonin 10 MG | Take by mouth. | | 0 | | | Activ | | CAPS | | | | | | e | + + + +---------+------+------+-------+ | metoprolol | Take 1 tablet by | 90 | 3 | /2 | 03/ | Activ | | succinate (TOPROL | mouth Daily. Take | tablet | | 09/10 | 09/10 | e | | XL) 100 mg ER tablet | with Toprol XL 50 mg | | | 20 | 21 | | | | daily (total dose | | | | | | | | 150 mg daily) | | | | | | + + + +---------+------+------+-------+ | metoprolol | Take 1 tablet by | 90 | 3 | 03/2 | | Activ | | succinate | mouth Daily. Takes | tablet | | 6/20 | | e | | (TOPROL-XL) 50 mg 24 | with Metoprolol XL | | | 20 | | | | hr tablet | 100 mg for total | | | | | | | | dose of 150 mg | | | | | | + + + +---------+------+------+-------+ | fondaparinux | Inject 0.4 mLs under | 14 | 0 | 03/2 | | Activ | | (ARIXTRA) 5 mg/0.4 | the skin Daily. | Syringe | | 6/20 | | e | | mL injection | Start it the day | | | 20 | | | | | after you stop | | | | | | | | warfarin. Hold it | | | | | | | | for 72 hours prior | | | | | | | | to surgery, restart | | | | | | | | it with warfarin | | | | | | | | following surgery | | | | | | | | when instructed by | | | | | | | | your surgeon, check | | | | | | | | INR 4 days later. | | | | | | + + + +---------+------+------+-------+ | fenofibrate 160 mg | TAKE 1 TABLET DAILY | 90 | 3 | 04/0 | | Activ | | tablet | | tablet | | 09/10 | | e | | | | | | 20 | | | + + + +---------+------+------+-------+ Active Problems + + + | Problem | Noted Date | + + + | Coronary artery disease involving [place] coronary artery of | 01/04/2019 | | [place] heart without angina pectoris | | + + + | Essential hypertension | 01/04/2019 | + + + | History of TIA (transient ischemic attack) | 01/04/2019 | + + + | Regional wall motion abnormality of heart | 01/04/2019 | + + + | Murmur, cardiac | 01/04/2019 | + + + | Right upper quadrant pain | 01/04/2019 | + + + | Thoracoabdominal aortic aneurysm | 01/04/2019 | + + + | Dissecting aneurysm of thoracic aorta, [place]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 Weight as of 12/10/11: 259 lb 9.6 oz(117.754 kg). | + + + + + | Dyslipidemia with low high density lipoprotein (HDL) cholesterol | 05/24/2008 | | with hypertriglyceridemia due to type 2 diabetes mellitus | | + + + + + | Overview: Chronic condition chart review:Patient meets | | criteria of triglycerides > 150 and /or HDL <35 refer to | | endocrinology note 05/20/08 Dx DM2 05/20/08 Treated with | | fenofibrate since 04/01/08 and statin since 05/31/08 Labs:07/12/08 | | trig 752 HDL 25 , 10/15/10 trig 949 HDL 24, 07/06/12 Trig 374 | | HDL 29 | + + + + + | Type 2 diabetes mellitus with hyperglycemia | 05/24/2008 | + + + + + | Overview: Chronic condition chart review:Patient meets | | criteria of triglycerides > 150 and /or HDL <35 refer to | | endocrinology note 05/20/08 Dx DM2 05/20/08 Treated with | | fenofibrate since 04/01/08 and statin since 05/31/08 Labs:07/12/08 | | trig 752 HDL 25 , 10/15/10 trig 949 HDL 24, 07/06/12 Trig 374 | | HDL 29 | + + + + + | Type 2 diabetes mellitus | 12/23/2007 | + + + | Restless legs syndrome | 04/17/2007 | + + + + + | Overview: Administrative Coding Change | + + + + + | Recurrent major depressive disorder, in partial remission | 03/21/2005 | + + + | Seasonal allergies | 03/21/2005 | + + + | Family history of diabetes mellitus | 11/30/2004 | + + + | Family history of ischemic heart disease and other diseases of | 11/30/2004 | | the circulatory system | | + + + | Gastroesophageal reflux disease | 04/25/2003 | + + + | Dissection of thoracic aorta | | + + + + + | Overview: Chronic type A dissection | + + + +---+ | History of mechanical aortic valve replacement | | + +---+ | Hyperlipidemia | | + +---+ | Sleep apnea with use of continuous positive airway pressure | | | (CPAP) | | + +---+ + + | Overview: on CPAP | + + + +---+ | Marfan's syndrome | | + +---+ Resolved Problems + + + + | Problem | Noted | Resolved | | | Date | Date | + + + + | Transient cerebral ischemia | 11/23/19 | | | | 07 | 9 | + + + + + + | Overview: 3 weeks after AVR/Bentall surgery | + + +--------+---+ + | Stroke | | | | | | 9 | +--------+---+ + + + | Overview: TIA | + + Encounters +--------+---------+ + + + | Date | Type | Specialty | Care Team | Description | +--------+---------+ + + + | 06/27/ | Refill | Cardiology | Maite Yen | Medication Refill | | 2020 | | | TONI Damon | | +--------+---------+ + + + | 06/16/ | Office | Cardiology | Ulises Rocha, | Marfan's syndrome | | 2019 | Visit | | MD | (Primary Dx); | | | | | | Dissection of aorta, | | | | | | thoracoabdominal | | | | | | (HCC); History of | | | | | | aortic aneurysm | | | | | | repair; History of | | | | | | mechanical aortic | | | | | | valve replacement; | | | | | | Coronary artery | | | | | | disease involving | | | | | | [place] coronary | | | | | | artery of [place] | | | | | | heart without angina | | | | | | pectoris; Mixed | | | | | | hyperlipidemia; | | | | | | Diabetes mellitus | | | | | | due to underlying | | | | | | condition, | | | | | | controlled, without | | | | | | complication, with | | | | | | long-term current | | | | | | use of insulin | | | | | | (HCC); Bladder | | | | | | stones; Preoperative | | | | | | cardiovascular | | | | | | examination | +--------+---------+ + + + from Last 3 Months Family History + + +------+ + | Medical History | Relation | Name | Comments | + + +------+ + | Arrhythmia | Father | | [place] | + + +------+ + | Coronary artery | Father | | | | disease | | | | + + +------+ + | Heart attack | Father | | | + + +------+ + | Heart failure | Father | | | + + +------+ + | Marfan syndrome | Father | | suspected, not formally diagnosed | + + +------+ + | Obesity | Father | | | + + +------+ + | Diabetes, NIDDM | Mother | | | + + +------+ + | Other (see comment) | Mother | | Neurologic Disorder - postop Hydrocephalus, | | | | | after surgery for an Acoustic Neuroma | + + +------+ + | Aneurysm | Sister | | ascending aortic aneurysm /Type A | | | | | dissection | + + +------+ + | Other (see comment) | Sister | | Valvular heart disease - AVR due to aortic | | | | | dissection (Bentall procedure) | + + +------+ + | Hypertension | Sister | | | + + +------+ + | Marfan syndrome | Sister | | | + + +------+ + + +------+ + + | Relation | Name | Status | Comments | + +------+ + + | Father | | | CHF | | | | (Age | | | | | 66) | | + +------+ + + | Mother | | | ICH | | | | (Age | | | | | 82) | | + +------+ + + | Sister | | Alive | | + +------+ + + | Sister | | | | + +------+ + + | Sister | | | | + +------+ + + | Sister | | | | + +------+ + + | Sister | | | | + +------+ + + Social History + +-------+ +--------+------+ [...] recent travel history available. | + + Last Filed Vital Signs + + + + + | Vital Sign | Reading | Time Taken | Comments | + + + + + | Blood Pressure | 140/72 | 06/17/2019 11:09 AM | | | | | PDT | | + + + + + | Pulse | 83 | 06/17/2019 11:09 AM | | | | | PDT | | + + + + + | Temperature | - | - | | + + + + + | Respiratory Rate | 20 | 02/17/2018 10:23 AM | | | | | PST | | + + + + + | Oxygen Saturation | 97% | 06/17/2019 11:09 AM | | | | | PDT | | + + + + + | Inhaled Oxygen | - | - | | | Concentration | | | | + + + + + | Weight | 116.6 kg (257 lb) | 06/17/2019 11:09 AM | | | | | PDT | | + + + + + | Height | 190.5 cm (6' 3") | 06/17/2019 11:09 AM | | | | | PDT | | + + + + + | Body Mass Index | 32.12 | 06/17/2019 11:09 AM | | | | | PDT | | + + + + + Plan of Treatment + + + + + | Health Maintenance | Due Date | Last Done | Comments | + + + + + | Hepatitis C | | | | | Screening | 0 | | | + + + + + | Vaccine: | | | | | Pneumococcal 19-64 | 6 | | | | (1 of 1 - PPSV23) | | | | + + + + + | Vaccine: | | | | | Dtap/Tdap/Td (1 - | 1 | | | | Tdap) | | | | + + + + + | Diabetic Eye Exam | | | | | | 8 | | | + + + + + | Diabetic Foot Exam | | | | | | 8 | | | + + + + + | Hemoglobin A1c | | | | | Screening | 8 | | | + + + + + | Colorectal Cancer | | | | | Screening | 0 | | | | (Colonoscopy) | | | | + + + + + | Vaccine: Zoster (1 | | | | | of 2) | 0 | | | + + + + + | Adult Annual | | | | | Wellness Visit | 9 | | | + + + + + | Vaccine: Influenza | | | | | (Season Ended) | 0 | | | + + + + + Procedures + +--------+ + + + | Procedure Name | Priori | Date/Time | Associated Diagnosis | Comments | | | ty | | | | + +--------+ + + + | ECHO-EXTERNAL SCAN | | 06/04/2019 | | Results for this | | | | 12:00 AM | | procedure are in the | | | | PDT | | results section. | + +--------+ + + + from Last 3 Months Results ECHO-EXTERNAL SCAN (06/04/2019 12:00 AM PDT) + + + | Narrative | Performed At | + + + | Ordered by an | | | unspecified provider. | | + + + from Last 3 Months Insurance + +--------+ +--------+ +---------+--------+ | Payer | Benefi | Subscriber | Effect | Phone | Address | Type | | | t Plan | ID | hiro | | | | | | / | | Dates | | | | | | Group | | | | | | + +--------+ +--------+ +---------+--------+ | MEDICARE | MEDICA | [id number] | | [phone] | | Medica | | | RE | | 010-Pr | 5 | | re | | | PART A | | esent | | | | | | AND B | | | | | | + +--------+ +--------+ +---------+--------+ | AETNA | AETNA | [id number] | 07/23/19 | | | PPO | | | PPO | | 18-Pre | | | | | | | | sent | | | | + +--------+ +--------+ +---------+--------+ + +--------+ +--------+ + + | Guarantor Name | Accoun | Relation to | Date | Phone | Billing Address | | | t Type | Patient | of | | | | | | | | | | + +--------+ +--------+ + + | Orion Moyer | Person | Self [birth year] | [address] | | | al/Fam | | 1961 | [phone] | [place] [place] | | | [place] | | | [address] ([place]) | [address] | + +--------+ +--------+ + + Advance Directives + + + + + | Type | Date Recorded | Patient | Explanation | | | | Livestock Haulier | | + + + + + | Power of | | | | | Informatics Nurse | | | | + + + + + | Advance | | | | | Directive | | | | + + + + +
--- OUTSIDE RECORDS SUMMARY | ~2019-08-11 | XMS | Encounter Summary ---
Demographics + + + | Address | [address] | | | [place] [address] | + + + | Home Phone | | + + + | Preferred Language | Unknown | + + + | Marital Status | | + + + | Muslim Affiliation | Unknown | + + + [...] Team Providers + +------+ + | Care Cigarette Filter Inspector Name | Role | Phone | + +------+ + | Toi Hwang DO | PCP | | + +------+ + Encounter Details +--------+ + + + + | Date | Type | Department | Care Team | Description | +--------+ + + + + | 06/30/ | Orders Only | [facility] | Conversion | | | 2019 | | CONVERSION [address] | Transaction, | | | | | [address] | Provider Unknown | | | | | [place], [place] | [phone] | | | | | [address] | | | | | | [phone] | | | +--------+ + + + [...]
--- OUTSIDE RECORDS SUMMARY | ~2019-08-11 | XMS | Encounter Summary ---
Demographics + + + | Address | [address] | | | [place] [address] | + + + | Home Phone | | + + + | Preferred Language | Unknown | + + + | Marital Status | | + + + | Christianity Affiliation | Unknown | + + + | Race | Unknown | + + + | Ethnic Group | Unknown | + + + Author + + + | Author | [facility] | | | and [place] | + + + | Organization | [facility] | | | [...] Team Providers + +------+ + | Care Slicing Machine Operator Name | Role | Phone | [...] [address] | | | | | [place], [place] | [facility], | | | | | [address] | [place] [address] | | | | | [phone] | [phone] | | | | | | | [...] documented in this encounter Results External Lab: [facility] (07/16/2016 10:30 AM PDT) + + + [...]
--- OUTSIDE RECORDS SUMMARY | ~2019-08-11 | XMS | Clinical Summary ---
Demographics + + + | Address | [address] | | | [place] [address] | + + + | Home Phone | | + + + | Preferred Language | Unknown | + + + | Marital Status | | + + + | Mormon Affiliation | Unknown | + + + | Race | Unknown | + + + | Ethnic Group | Unknown | + + + Author + + + | Author | [facility] | | | and [place] | + + + | Organization | [facility] | | | [...] Team Providers + +------+ + | Care Sales Order Processor Name | Role | Phone | + [...] + + | Coronary artery disease involving [place] coronary artery of | 01/04/2019 | | [place] heart without angina pectoris | | + [...] + | Dissecting aneurysm of thoracic aorta, [place]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 A | 01/04/2019 | + + [...] involving | | | | | | [place] coronary | | | | | | artery of [place] | | | | | | heart [...] +--------+ +---------+--------+ | MEDICARE | MEDICA | [id number] | | [phone] | | Medica | | | RE | | 010-Pr | 5 | | re | | | PART A | | esent | | | | | | AND B | | | | | | + +--------+ +--------+ +---------+--------+ | AETNA | AETNA | [id number] | 07/23/19 | | | PPO | [...] | | al/Fam | | 1961 | [phone] | [address] [place] | | | raphael | | | 4 ([place]) | [phone] | + +--------+ +--------+ + + Advance Directives + + + + + | Type | Date Recorded | Patient | Explanation | | | | Cobol Programmer | | + + + + + | Power of | | | | | Social Human Services Assistants | | | | + + + + + | Advance | | | | | Directive | | | | + + + + +
--- OUTSIDE RECORDS SUMMARY | ~2019-08-11 | XMS | Encounter Summary ---
Demographics + + + | Address | [address] | | | [place] [address] | + + + | Home Phone | | + + + | Preferred Language | Unknown | + + + | Marital Status | | + + + | Spiritism Affiliation | Unknown | + + + | Race | Unknown | + + + | Ethnic Group | Unknown | + + + Author + + + | Author | [facility] | | | and [place] | + + + | Organization | [facility] | | | and [...] Team Providers + +------+ + | Care Boat Diesel Motor Mechanic Name | Role | Phone | + +------+ + | Toi Hwang DO | PCP | | + +------+ + Encounter Details +--------+ + + + + | Date | Type | Department | Care Team | Description | +--------+ + + + + | 11/10/ | Orders Only | [facility] | Ulises Rocha, | Dissection of | | 2019 | | CARDIOLOGY REGINA | [address] | thoracoabdominal | | | | [address] | [place], | aorta (HCC) (Primary | | | | [place], [place] | [place] [address] | Dx) | | | | [address] | [phone] | | | | | [phone] | | | +--------+ + + + [...]
--- OUTSIDE RECORDS SUMMARY | ~2019-08-11 | XMS | Encounter Summary ---
Demographics + + + | Address | [address] | | | [place] [address] | + + + | Home Phone | | + + + | Preferred Language | Unknown | + + + | Marital Status | | + + + | Oriental Orthodox Affiliation | Unknown | + + + | Race | Unknown | + + + | Ethnic Group | Unknown | + + + Author + + + | Author | [facility] | | | and [place] | + + + | Organization | [facility] | | | and [...] Team Providers + +------+ + | Care Marble Cutter Operator Name | Role | Phone | + +------+ + | Toi Hwang DO | PCP | | + +------+ + Reason for Visit + + + | Reason | Comments | + + + | Follow-up | 5 MONTHS | + + + Encounter Details +--------+---------+ + + + | Date | Type | Department | Care Team | Description | +--------+---------+ + + + | 06/16/ | Office | [facility] | Ulises Rocha Robert, | Marfan's syndrome | | 2019 | Visit | [facility]IOLOGY [place] | [address] | (Primary Dx); | | | | [address] | [place], | Dissection of aorta, | | | | [place], [place] | [place] [address] | thoracoabdominal | | | | [address] | [phone] | (HCC); History of | | | | [phone] | | aortic aneurysm | | | | | | repair; History of | | | | | | mechanical aortic | | | | | | valve replacement; | | | | | | Coronary artery | | | | | | disease involving | | | | | | bad river band coronary | | | | | | artery of bad river band | | | | | | heart [...] insulin | | | | | | ([facility]); Bladder | | | | | | stones; Preoperative | | | | | | cardiovascular | | | | | | examination | +--------+---------+ + + + Social History + +-------+ [...] + + documented as of this encounter Last Filed Vital Signs + + + [...] + + + | Respiratory Rate | - | - | | + [...] | | + + + + + documented in this encounter Progress Notes Ulises Rocha MD - 06/17/2019 11:15 AM PDTFormatting of this note might be different fro m the original. Subjective: Patient ID: Orion Moyer is a 58 y.o. male. HPI Patient's medications, allergies, past medical, surgical, social and family histories were obtained and reviewed as appropriate. Mr. Moyer came to the office today for a 6 month follow up visit. He seems to be doin g relatively well, and has no significant chest pain or dyspnea. 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 Leobardo aortic valve prosthesis and replac ement of the aortic root) in 2006. 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 It extends into the leg arteries. He has Marfan syndrome, alth ough he clearly has incomplete penetrance, and his sister also has the same problems and req uired surgery for a dissection as well. He thinks his father might have also had the same i ssue, with incomplete penetrance. His heart rate and blood pressure are adequately controlled. He remains on metoprolol XL 1 50 mg daily, and at his request, I changed his prescription to a single 100 mg tablet and a single 50 mg tablet daily, as he does not like taking 3 pills/day nor breaking the 100 mg ta blets in half. His echo showed improved LV systolic function, from an EF of 40-45 % in June,, to an EF of 50%, although there is inferior and apical hypokinesis, with n o change in the size of his dilated ascending aorta, 4.[address] angiogram of the chest, a bdomen and pelvis 04/14/19 showed a stable type A dissection, with no significant change from prior studies. He had no significant arrhythmias on a 2 week event recorder, and his prior intermittent pa lpitations have resolved, which he attributes to the lower stress of living in [place], as opposed to [place]. A lipid panel March showed a significant improvement in his previous ly markedly elevated triglycerides atorvastatin 80 mg plus fenofibrate 160 mg daily. LFTs w ere normal, with stable renal function, despite the fact that the left renal artery arises f rom the false lumen of his dissection. He is on a continous glucose monitor. His last HgbA 1c was 6.8. At present, he appears to be fairly stable. No changes were made in his medications. He has multiple, large bladder stones that will require surgery. Due to his history of possib le HIT, and the need for anticoagulation with a mechanical aortic valve, I prescribed johana hicks with fondaparinux 5 mg subcutaneously daily, to be used starting the day after he stops h is warfarin. It has a half-life of 17-21 hours, so he should hold it for 72 hours prior to surgery, restart it when it is felt to be safe for him to do so, and continue it at least 4 days after he restarts warfarin (can restart them simultaneously, as it will take several da ys for warfarin levels to rise to 2.5-3.5, which is his goal with a mechanical valve). He s hould have his INR checked on day 4 to see if he can stop the fondaparinux at that time. I admit that this is rather complicated, and there is no good medical literature to support i ts use in this case, but he cannot use heparin or Lovenox for bridging. The alternative wou ld be simply to stop his warfarin, check his INR daily, and operate as soon as his INR is le ss than 1.7, and use the fondaparinux only when restarting anticoagulation, until his INR is greater than 2.4, but I doubt that the operating room will have the flexibility to schedule a procedure in this way. I will see him back in 6 months for follow-up. ROS GENETIC: Marfan Syndrome CONSTITUTIONAL: 50 lb weight loss since 2014, regained 10 lbs in the last 2 months (on insu barbra), denies recent fever, chills, has occasional night sweats, c/o significant fatigue NEUROLOGIC: No history of CVA, but had a TIA 11/2006 following his Bentall procedure, has a past h/o migraines - resolved by age 39, no seizures, syncope. No numbness, tingling, par esthesias, dizziness, but has episodes of "tunnel vision" accompanied by lightheadedness, us ually preceded by physical activity. EYES: No amaurosis, diplopia, recent visual changes, cataracts or glaucoma ENT: No hearing loss, has occasional tinnitus, no epistaxis, but has Dysphagia, with occas ional choking ENDOCRINE: Insulin-Requiring Type II Diabetes since 2007. No history of thyroid disorders or other endocrine problems. No excessive hunger, thirst. PULMONARY/SLEEP: No dyspnea, orthopnea, paroxysmal nocturnal dyspnea. No history of asthm a, emphysema. He has Obstructive Sleep Apnea, prior RLS - has mostly resolved. CARDIOVASCULAR: He has had rare chest pains, can awaken him from sleep (about every 2 year s). He has a chronic Type A Ascending Aortic Dissection, h/o Mechanical AVR. He has a hist ory of CAD. No history of heart failure. Chronic LBBB. He has PACs and PVCs ("benign early heart beat from all 4 chambers", has occasional Palpitations, most prominently after physica l activity. He has a history of a heart murmur in his teenage years, no h/o rheumatic fever . He has a history of Essential Hypertension, Hyperlipidemia. No edema, h/o PVD, c/o Baldomero ication bilaterally, L > R, can walk 0.1-0.2 mi. until symptoms make him stop and rest. 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 Normal [address] Leobardo AVR, moderately enlarged ascending aorta, 4.6 cm, with a linear dis section flap noted from the a sending aorta to the abdominal aorta -- CTA chest/abdomen/pelvis (05/04/18): Unchanged type A thoracic aortic dissection from the ascending aorta into the left external iliac artery -- Echo (05/01/17): EF 55-60% (improved), normal RV size and function, normal mechanical AVR, ascending aorta 45 mm, chronic dissection flap noted -- CTA chest/abdomen/pelvis (05/01/17): Stable, unchanged appearance of a chronic type A diss ection extending into the brachiocephalic artery, which is aneurysmal, 3.0 cm, into the left subclavian artery, but not involving the carotid arteries or right subclavian artery. It e xtends into the right renal artery. The left renal artery arises from the false lumen. It extends past the bifurcation, and the left common and external iliac arteries, and a short d istance into the right common iliac artery. -- 2 Week Event Recorder (07/16/16): sinus rhythm, rare PVCs and PACs and a single, 6 beat r un of PAT. His one reported symptomatic episode of "dizziness" corresponded to normal sinus rhythm. -- Echo (07/16/16): EF 40-45%, septal and apical wall motion abnormalities, grade 1 diastoli c dysfunction, normal RV. Normal mechanical AVR. The ascending aorta is dilated, 4.6 cm, w ith a linear density consistent with a dissection flap -- CTA Chest, Abdomen, Pelvis (07/16/16): Extensive type A aortic dissection seen from the a scending aorta to the left common femoral artery. The dissection also appears to extend to t he brachiocephalic artery and the left renal artery. The lumen and false lumen appear patent throughout the majority of the dissection. The true lumen appears patent and also appears o ccluded in the right common iliac artery. 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 Dissection extends into the right femoral artery which appears widely patent . Left renal artery appears to arise from the false lumen and appears widely patent. -- CTA chest, abdomen and pelvis (03/23/14): Chronic type A dissection, pulling defect in t he left lateral ascending aorta, possible thrombus -- Carotid U/S (11/30/06): Normal -- Lipid panel (04/17/18-on atorvastatin 80 mg / Fenofibrate 160 mg): TC-93, LDL-10, HDL-26, TG-282, normal LFTs // (07/16/16): TC-117, LDL-could not be calculated, HDL-31, TG-559 GASTROINTESTINAL: GERD. No recent abdominal pain, nausea, vomiting. He has "near constan t" diarrhea, possibly due to Metformin. Denies PUD, melena, hematochezia, hepatitis. RENAL/: No dysuria, hematuria, urinary urgency, hesitancy. He had acute Renal Failure w ith his acute aortic dissection in 2006, transiently was on HD. He has Uric Acid Nephrolith iasis, with bladder stones, appearing worse and more numerous, on his CT angiogram 05/04/18 a nd even greater on 04/14/2019 HEMATOLOGY/ONCOLOGY: No h/o bleeding disorders, DVT, PE. Denies easy bruisability or ble eding. HIT. No history of anemia, no known blood transfusions. No history of cancer. MUSCULOSKELETAL: No myalgias, arthralgias. No history of rheumatologic or autoimmune dise ases. CUTANEOUS: No rashes, pruritus, lesions. PSYCHIATRIC: He has a history of Depression, denies anxiety or other psychiatric problems. Past Medical History: Diagnosis Date Acute renal failure (ARF) (HCC) 2006 due to type A Aortic Dissection Coronary artery disease one coronary artery affected by type A Aortic Dissection, 1 40% stenosis Diabetes mellitus (HCC) Diabetes mellitus, type 2 (HCC) 12/2007 H/O mechanical aortic valve replacement Heart murmur as a teen Hyperlipidemia Hypertension Joint pain Marfan's syndrome Rectus sheath hematoma 08/29/2016 left Restless legs syndrome (RLS) Sleep apnea on CPAP Stroke (HCC) TIA Thoracic aortic dissection (HCC) Chronic type A dissection TIA (transient ischemic attack) Unspecified visual disturbance Past Surgical History: Procedure Laterality Date AORTIC VALVE REPLACEMENT 11/10/2006 [facility] Leobardo [id number], s# [id number], [facility], with Aortic root rep air (Bentall) CARDIAC SURGERY 11/10/2006 AVR Bentall procedure CHOLECYSTECTOMY 04/2016 KNEE SURGERY Left 1997 meniscal and tibial plate repair OTHER SURGICAL HISTORY 2004 NASAL SEPTOPLASTY W/ TURBINOPLASTY - for MELBA OTHER SURGICAL HISTORY WISDOM TOOTH EXTRACTION Family History Problem Relation Age of Onset Heart attack Father Heart failure Father 60 Coronary artery disease Father 45 Obesity Father Arrhythmia Father [place] Marfan syndrome Father suspected, not formally diagnosed Other (see comment) Mother Neurologic Disorder - postop Hydrocephalus, after surgery for an Acoustic Neuroma Diabetes, NIDDM Mother Aneurysm Sister ascending aortic aneurysm /Type A dissection Other (see comment) Sister Valvular heart disease - AVR due to aortic dissection (Bentall procedure) Hypertension Sister Marfan syndrome Sister Social History Socioeconomic History Marital status: Spouse name: Not on file Number of children: Not on file Years of education: Not on file Highest education level: Not on file Occupational History Not on file Social Needs Financial resource strain: Not on file Food insecurity: Worry: Not on file Inability: Not on file Transportation needs: Medical: Not on file Non-medical: Not on file Tobacco Use Smoking status: Never Smoker Smokeless tobacco: Never Used Substance and Sexual Activity Alcohol use: Not on file Comment: Alcoholic Drinks/day: rare Drug use: Not on file Comment: Drug use: No Sexual activity: Not on file Lifestyle Physical activity: Days per week: Not on file Minutes per session: Not on file Stress: Not on file Relationships Social connections: Talks on phone: Not on file Gets together: Not on file Attends mandaen service: Not on file Active member of club or organization: Not on file Attends meetings of clubs or organizations: Not on file Relationship status: Not on file Intimate partner violence: Fear of current or ex partner: Not on file Emotionally abused: Not on file Physically abused: Not on file Forced sexual activity: Not on file Other Topics Concern Not on file Social History Narrative Not on file Allergies Allergen Reactions Heparin Other (See Comments) Thrombocytop, "kills my platelets" Intolerance Allergen Reactions Venlafaxine Other (See Comments) diaphoresis Current Outpatient Medications Medication Sig Dispense Refill aspirin 81 MG EC tablet Take 81 mg by mouth daily with breakfast. atorvaSTATin (LIPITOR) 80 MG tablet TAKE 1 TABLET NIGHTLY 90 tablet 3 famotidine (PEPCID) 40 MG tablet Take 40 mg by mouth 2 (two) times daily. fenofibrate 160 mg tablet TAKE 1 TABLET DAILY 90 tablet 3 icosapent ethyl (VASCEPA) 1 g capsule Take by mouth. (Patient taking differently: Take 1 g by mouth 2 times daily (with breakfast & dinner).) insulin degludec (TRESIBA FLEXTOUCH) 200 units/mL concentrated injection (pen) Inject 8 0 Units into the skin daily. (Patient taking differently: Inject 82 Units under the skin Kaye ly.) insulin lispro (HUMALOG KWIKPEN) 100 units/mL injection (pen) Inject 15 Units into the skin 3 (three) times daily with meals. With meals (Patient taking differently: Inject 15 Uni ts under the skin 3 times daily (with meals). 3-22 units w/ meals, and 1-12 units after meal s) liraglutide (VICTOZA) 18 mg/3 mL injection Inject into the skin daily. (Patient taking differently: Inject 1.2 mg under the skin Daily.) loperamide (IMODIUM) 2 mg capsule Take 2 mg by mouth 4 times daily as needed for Diarrh ea. losartan (COZAAR) 25 mg tablet Take 25 mg by mouth daily. Melatonin 10 MG CAPS Take by mouth. metFORMIN (GLUCOPHAGE) 500 mg tablet Take 500 mg by mouth daily with breakfast. (Patien t taking differently: Take 500 mg by mouth 2 times daily (with breakfast & dinner).) metoprolol succinate (TOPROL XL) 100 mg ER tablet Take 1 tablet by mouth Daily. Take wi th Toprol XL 50 mg daily (total dose 150 mg daily) 90 tablet 3 metoprolol succinate (TOPROL-XL) 50 mg 24 hr tablet Take 1 tablet by mouth Daily. Takes with Metoprolol XL 100 mg for total dose of 150 mg 90 tablet 3 rOPINIRole (REQUIP) 0.5 MG tablet Take 0.5 mg by mouth nightly. warfarin (COUMADIN) 5 mg tablet Take 5 mg by mouth daily. 5 mg Everyday ,except wed ta kes 2.5 mg, targer INR 2-3 , followed by [facility] coumadin clnic (Patient taking differently: Daniel e 5 mg by mouth Daily. Followed by [facility] coumadin clinic , target INR 2.5-3.5) Current Facility-Administered Medications Medication Dose Route Frequency Provider Last Rate Last Dose fondaparinux (ARIXTRA) injection 5 mg 5 mg Subcutaneous Daily Ulises Rocha MD Objective: BP 140/72 | Pulse 83 | Ht 1.905 m (6' 3") | Wt 116.6 kg (257 lb) | SpO2 97% | BMI 32.1 2 kg/m PHYSICAL EXAM GENERAL: Well developed, well nourished, in no distress. Appears approximately stated age . HEENT: Normocephalic, atraumatic. EYES: PERRL, sclerae anicteric, no xanthelsasmas MOUTH: Oral mucosae moist, dentition adequate, no lesions noted NECK: No JVD, lymphadenopathy, thyromegaly, bruits. Carotid pulses are 2+ bilaterally LUNGS: Clear bilaterally, with no rales, rhonchi or wheezing noted, respirations unlabored HEART: Well-healed sternotomy incision, subtle pectus excavatum. Nondisplaced PMI, regular rate and rhythm, S1, S2 prosthetic, with a 1-2/6 systolic crescendo decrescendo murmur at t he base, no rubs or gallops noted. ABDOMEN: Soft, nontender, no organomegaly, masses or bruits. Bowel sounds are normal in a ll 4 quadrants. The abdominal aortic pulsation is not palpable. EXTREMITIES: No edema. Radial pulses 2+ bilaterally. Femoral pulses are 2+ bilaterally wi thout bruits. DP and PT pulses are trace-1 + bilaterally. SKIN: Warm and dry, capillary refill is normal, no lesions. NEUROLOGIC: Awake, alert and oriented x 3. No focal motor deficits. PSYCHIATRIC: Appropriate, affect appears normal EKG: Normal sinus rhythm, rate 93, left axis deviation, left bundle branch block; no signif icant change compared to 12/23/16 06/30/18 Assessment: Orion was seen today for follow-up. Diagnoses and all orders for this visit: Marfan's syndrome Dissection of aorta, thoracoabdominal (HCC) History of aortic aneurysm repair History of mechanical aortic valve replacement Coronary artery disease involving bad river band coronary artery of bad river band heart without angina pec toris Mixed hyperlipidemia Diabetes mellitus due to underlying condition, controlled, without complication, with long- term current use of insulin ([facility]) Bladder stones Preoperative cardiovascular examination Other orders - fondaparinux (ARIXTRA) injection 5 mg - metoprolol succinate (TOPROL XL) 100 mg ER tablet; Take 1 tablet by mouth Daily. Take with Toprol XL 50 mg daily (total dose 150 mg daily) - metoprolol succinate (TOPROL-XL) 50 mg 24 hr tablet; Take 1 tablet by mouth Daily. Ta kes with Metoprolol XL 100 mg for total dose of 150 mg Plan: I will see him back in 6 months for follow-up. documented in this encounter Plan of Treatment Not on filedocumented as of this encounter Visit Diagnoses + + | Diagnosis | + + | Marfan's syndrome - Primary | + + | Dissection of aorta, thoracoabdominal (HCC) Dissection of aorta, thoracoabdominal | + + | History of aortic aneurysm repair Other postprocedural status | + + | History of mechanical aortic valve replacement Heart valve replaced by other means | + + | Coronary artery disease involving bad river band coronary artery of bad river band heart without | | angina pectoris | + + | Mixed hyperlipidemia | + + | Diabetes mellitus due to underlying condition, controlled, without complication, with | | long-term current use of insulin (HCC) | + + | Bladder stones Other calculus in bladder | + + | Preoperative cardiovascular examination Pre-operative cardiovascular examination | + + documented in this encounter
--- OUTSIDE RECORDS SUMMARY | ~2019-08-11 | XMS | Encounter Summary ---
Demographics + + + | Address | [address] | | | [place] [address] | + + + | Home Phone | | + + + | Preferred Language | Unknown | + + + | Marital Status | | + + + | Caodaism Affiliation | Unknown | + + + | Race | Unknown | + + + | Ethnic Group | Unknown | + + + Author + + + | Author | [facility] | | | and [place] | + + + | Organization | [facility] | | [...] Team Providers + +------+ + | Care Legal Administrator Name | Role | Phone | + +------+ + | Toi Hwang DO | PCP | | + +------+ + Encounter Details +--------+ + + + + | Date | Type | Department | Care Team | Description | +--------+ + + + + | 10/29/ | Orders Only | [facility] | Antwan Joseph, | | | 2018 | | [facility] | [address] | | | | | [address] | [place] [address] | | | | | [place], [place] | [phone] | | | | | [address] | | | | | | [phone] | | | +--------+ + + + [...]
--- OUTSIDE RECORDS SUMMARY | ~2019-08-11 | XMS | Encounter Summary ---
Demographics + + + | Address | [address] | | | [place] [address] | + + + | Home Phone | | + + + | Preferred Language | Unknown | + + + | Marital Status | | + + + | Baptist Affiliation | Unknown | + + + | Race | Unknown | + + + | Ethnic Group | Unknown | + + + Author + + + | Author | [facility] | | | and [place] | + + + | Organization | [facility] | | [...] Team Providers + +------+ + | Care Store Sales Leader Name | Role | Phone | + +------+ + | Toi Hwang DO | PCP | | + +------+ + Encounter Details +--------+ + + + + | Date | Type | Department | Care Team | Description | +--------+ + + + + | 11/08/ | Orders Only | [facility] | Ulises Rocha, | | | 2016 | | CARDIOLOGY REGINA | [address] | | | | | [address] | [place], | | | | | [place], [place] | [place] [address] | | | | | [address] | | | | | | [phone] | (Fax) | | +--------+ + + + + [...] + | LIPID PANEL | Routin | 11/08/2016 | | Results for this | | | e | 12:20 PM | | procedure are in the | | | | PDT | | results section. | + +--------+ + + + | COMPREHENSIVE | Routin | 11/08/2016 | | Results for this | | METABOLIC PANEL | e | 12:20 PM | | procedure are in the | | | | PDT | | results section. | + +--------+ + + + documented in this encounter Results Lipid Panel (11/08/2016 12:20 PM PDT) + +-------+ + + + | Component | Value | Ref Range | Performed | Pathologist | | | | | At | Signature | + +-------+ + + + | Cholesterol | 115 | 200 mg/dL | EXTERNAL | | | | | | LAB | | + +-------+ + + + | Triglycerid | 107 | 30 - 150 mg/dL | EXTERNAL | | | es | | | LAB | | + +-------+ + + + | HDL | 30.2 | 40 mg/dl | EXTERNAL | | | | | | LAB | | + +-------+ + + + | LDL, | 63 | 100 mg/dL | EXTERNAL | | | Calculated | | | LAB | | + +-------+ + + + | LDl/HDL | | | EXTERNAL | | | Ratio | | | LAB | | + +-------+ + + + | Chol/HDL | 3.8 | 4.97 | EXTERNAL | | | Ratio | | | LAB | | + +-------+ + + + | VLDL | 21 | 4 - 40 mg/dL | EXTERNAL | | | | | | LAB | | + +-------+ + + + | Non HDL | 85 | 130 | EXTERNAL | | | Chol. | | | LAB | | | (LDL+VLDL) | | | | | + +-------+ + + + + + | Specimen | + + | Blood specimen | | (specimen) | + + + +---------+ + + | Performing | Address | City/State/Zipcode | Phone Number | | Organization | | | | + +---------+ + + | EXTERNAL LAB | | | | + +---------+ + + Comprehensive Metabolic Panel (11/08/2016 12:20 PM PDT) + +---------+ + + + | Component | Value | Ref Range | Performed | Pathologist | | | | | At | Signature | + +---------+ + + + | Glucose, | 262 (A) | 70 - 100 mg/dL | EXTERNAL | | | Fasting | | | LAB | | + +---------+ + + + | BUN | 24 (A) | 6 - 23 mg/dL | EXTERNAL | | | | | | LAB | | + +---------+ + + + | Creatinine | 1.29 | 0.70 - 1.33 | EXTERNAL | | | | | mg/dL | LAB | | + +---------+ + + + | BUN/Creatin | 18.6 | 6.0 - 28.6 | EXTERNAL | | | ine Ratio | | | LAB | | + +---------+ + + + | Calcium | 9.0 | 8.4 - 10.2 | EXTERNAL | | | | | mg/dL | LAB | | + +---------+ + + + | Protein, | 6.2 | 6.0 - 8.0 g/dL | EXTERNAL | | | Total | | | LAB | | + +---------+ + + + | Albumin | 3.6 | 3.5 - 5.0 | EXTERNAL | | | | | | LAB | | + +---------+ + + + | Globulin | 2.6 | 1.8 - 3.5 | EXTERNAL | | | | | | LAB | | + +---------+ + + + | A/G Ratio | 1.4 | 1.1 - 2.4 | EXTERNAL | | | | | | LAB | | + +---------+ + + + | Bilirubin | 0.5 | 0.0 - 1.2 mg/dL | EXTERNAL | | | Total | | | LAB | | + +---------+ + + + | ALP, | 91 | 31 - 120 | EXTERNAL | | | External | | | LAB | | + +---------+ + + + | ALT | 21 | 7 - 52 U/L | EXTERNAL | | | | | | LAB | | + +---------+ + + + | AST | 14 | 13 - 39 U/L | EXTERNAL | | | | | | LAB | | + +---------+ + + + | Na | 140 | 132 - 143 | EXTERNAL | | | | | mmol/L | LAB | | + +---------+ + + + | K | 4.4 | 3.6 - 5.1 | EXTERNAL | | | | | mmol/L | LAB | | + +---------+ + + + | Cl | 103 | 95 - 112 mmol/L | EXTERNAL | | | | | | LAB | | + +---------+ + + + | CO2 | 26 | 19 - 31 mmol/L | EXTERNAL | | | | | | LAB | | + +---------+ + + + | Anion Gap | 15.4 | 7 - 21 mmol/L | EXTERNAL | | | | | | LAB | | + +---------+ + + + | Estimated | 57 (A) | 60 mg/dL | EXTERNAL | | [...]
--- OUTSIDE RECORDS SUMMARY | ~2019-08-11 | XMS | Encounter Summary ---
Demographics + + + | Address | [address] | | | [place] [address] | + + + | Home Phone | | + + + | Preferred Language | Unknown | + + + | Marital Status | | + + + | Buddhism Affiliation | Unknown | + + + | Race | Unknown | + + + | Ethnic Group | Unknown | + + + Author + + + | Author | [facility] | | | and [place] | + + + | Organization | [facility] | | | [...] Team Providers + +------+ + | Care Research Project Coordinator Name | Role | Phone | + +------+ + PCP | Unavailable | + +------+ + Encounter Details +--------+ + + + + | Date | Type | Department | Care Team | Description | +--------+ + + + + | 07/16/ | Hospital | [facility] | Conversion | Thoracic aortic | | 2017 | Encounter | [facility] [address] | Transaction, | dissection (HCC) | | | | [address] | Provider Unknown | | | | | [place] | [phone] | | | | | [address] | | | | | | [phone] | Eusebia Rocha MD | | | | | | [address] | | | | | | [place], [place] | | | | | | [address] | | | | | | | [...] were performed | | | using the [employer] 3-D software and sent to PACS. Radiation [...] | | reconstructions were performed using the [employer] 3-D software and sent to PACS. | [...] the arterial phase data set by the tissue technologist. Dose reduction | | | techniques [...] the arterial phase data set by the tissue technologist. | | Dose reduction techniques were [...] in course, but widely patent IMPRESSION: 1. [place] type A | | dissection which is [...]
--- OUTSIDE RECORDS SUMMARY | ~2019-08-11 | XMS | Encounter Summary ---
Demographics + + + | Address | [address] | | | [place] [address] | + + + | Home Phone | | + + + | Preferred Language | Unknown | + + + | Marital Status | | + + + | Restorationism Affiliation | Unknown | + + + | Race | Unknown | + + + | Ethnic Group | Unknown | + + + Author + + + | Author | [facility] | | | and [place] | + + + | Organization | [facility] | | | [...] Team Providers + +------+ + | Care Stunner And Shackler Name | Role | Phone | + +------+ + | Toi Hwang DO | PCP | | + +------+ + Encounter Details +--------+ + + + + | Date | Type | Department | Care Team | Description | +--------+ + + + + | 11/12/ | Orders Only | [facility] | Rasheed Martinez | | | 2018 | | [facility] | MD [address] | | | | | CARDIOLOGY [address] | | | | | [facility] | [place] [address] | | | | | [place], [place] | [phone] | | | | | [address] | | | | | | [phone] | | | +--------+ + + + [...]
--- OUTSIDE RECORDS SUMMARY | ~2019-08-11 | XMS | Clinical Summary ---
Demographics + + + | Address | [address] | | | [place] [address] | + + + | Home Phone | | + + + | Preferred Language | Unknown | + + + | Marital Status | | + + + | Restorationist Affiliation | Unknown | + + + | Race | Unknown | + + + | Ethnic Group | Unknown | + + + Author + + + | Author | [facility] (Historical as of | | | 11-07-18) | + + + | Organization | [facility] (Historical as of | | | 11-07-18) | + + + | Address | Unknown | + + + | Phone | Unavailable | + + + Support + + +---------+ + | Name | Relationship | Address | Phone | + + +---------+ + | RodasZulema | ECON | Unknown | | + + +---------+ + Care Team Providers + +------+ + | Care Garbage Truck Dispatcher Name | Role | Phone | + +------+ + | Toi Hwang DO | PP | | + +------+ + Allergies + + + + + + | Active Allergy | Reactions | Severity | Noted | Comments | | | | | Date | | + + + + + + | Heparin | Thrombocytopenia | High | 06/12/19 | "kills my | | | | | 17 | platelets" | + + + + + + | Venlafaxine | Other (See Comments) | Medium | 08/15/19 | diaphoresis | | | | | 13 | | + + + + + + Current Medications + + +--------+---------+------+------+-------+ | Prescription | Sig. | Disp. | Refills | Star | End | Statu | | | | | | t | Date | s | | | | | | Date | | | + + +--------+---------+------+------+-------+ | warfarin | Take 5 mg by mouth | | | | | Activ | | (COUMADIN) 5 MG | daily. 5 mg Everyday | | | | | e | | tabletIndications: | ,except wed takes | | | | | | | Thromboembolism due | 2.5 mg, targer INR | | | | | | | to Prosthetic Heart | 2-3 , followed by | | | | | | | Valve, Transient | [facility] coumadin clnic | | | | | | | Ischemic Attacks | | | | | | | + + +--------+---------+------+------+-------+ | famotidine | Take 40 mg by mouth | | | | | Activ | | (PEPCID) 40 MG | 2 (two) times daily. | | | | | e | | tablet | | | | | | | + + +--------+---------+------+------+-------+ | losartan (COZAAR) | Take 25 mg by mouth | | | | | Activ | | 25 MG tablet | daily. | | | | | e | + + +--------+---------+------+------+-------+ | metFORMIN | Take 500 mg by mouth | | | | | Activ | | (GLUCOPHAGE) 500 MG | daily with | | | | | e | | tablet | breakfast. | | | | | | + + +--------+---------+------+------+-------+ | insulin lispro, | Inject 15 Units into | | | | | Activ | | human, (HUMALOG) 100 | the skin 3 (three) | | | | | e | | UNIT/ML injection | times daily with | | | | | | | | meals. With meals | | | | | | + + +--------+---------+------+------+-------+ | insulin degludec | Inject 80 Units into | | | | | Activ | | (TRESIBA FLEXTOUCH) | the skin daily. | | | | | e | | 200 UNIT/ML | | | | | | | | injection | | | | | | | + + +--------+---------+------+------+-------+ | aspirin 81 MG EC | Take 81 mg by mouth | | | | | Activ | | tablet | daily with | | | | | e | | | breakfast. | | | | | | + + +--------+---------+------+------+-------+ | ropinirole | Take 0.5 mg by mouth | | | | | Activ | | (REQUIP) 0.5 MG | nightly. | | | | | e | | tablet | | | | | | | + + +--------+---------+------+------+-------+ | liraglutide | Inject into the | | | | | Activ | | (VICTOZA) 18 MG/3ML | skin daily. | | | | | e | | injection | | | | | | | + + +--------+---------+------+------+-------+ | Icosapent Ethyl | Take by mouth. | | | | | Activ | | (VASCEPA) 1 g CAPS | | | | | | e | + + +--------+---------+------+------+-------+ | metoprolol | Take 1 tablet by | 270 | 3 | 07/2 | 07/2 | Activ | | (TOPROL-XL) 50 MG 24 | mouth 3 (three) | tablet | | 2/20 | 1/20 | e | | hr tablet | times daily. | | | 19 | 20 | | + + +--------+---------+------+------+-------+ | fenofibrate 160 MG | TAKE 1 TABLET DAILY | 90 | 3 | 08/0 | | Activ | | tablet | | tablet | | 8/20 | | e | | | | | | 19 | | | + + +--------+---------+------+------+-------+ | atorvastatin | TAKE 1 TABLET | 90 | 3 | 08/0 | | Activ | | (LIPITOR) 80 MG | NIGHTLY | tablet | | 11/10 | | e | | tablet | | | | 19 | | | + + +--------+---------+------+------+-------+ Active Problems + + + | Problem | Noted Date | + + + | Type 2 diabetes mellitus (HCC) | 12/23/2007 | + + + | Transient cerebral ischemia | 11/22/2006 | + + + + + | Overview: 3 weeks after AVR/Bentall surgery | + + + +---+ | Dissection of thoracic aorta (HCC) | | + +---+ + + | Overview: Chronic type A dissection | + + + +---+ | History of mechanical aortic valve replacement | | + +---+ | Stroke | | + +---+ + + | Overview: TIA | + + + +---+ | Hyperlipidemia | | + +---+ | Sleep apnea | | + +---+ + + | Overview: on CPAP | + + + +---+ | Marfan's syndrome | | + +---+ Family History + + +------+ + | Medical History | Relation | Name | Comments | + + +------+ + | Arrhythmia | Father | | [place] | + + +------+ + | Congestive Heart | Father | | | | Failure | | | | + + +------+ + | Coronary art dis | Father | | | + + +------+ + | Heart attack | Father | | | + + +------+ + | Heart failure | Father | | | + + +------+ + | Marfan syndrome | Father | | suspected, not formally diagnosed | + + +------+ + | Obesity | Father | | | + + +------+ + | Diabetes type II | Mother | | | + + +------+ + | Neurologic Disorder | Mother | | postop Hydrocephalus, after surgery for an | | | | | Acoustic Neuroma | + + +------+ + | Aneurysm | Sister | | ascending aortic aneurysm /Type A | | | | | dissection | + + +------+ + | Hypertension | Sister | | | + + +------+ + | Marfan syndrome | Sister | | | + + +------+ + | Valvular heart | Sister | | AVR due to aortic dissection (Marinaall | | disease | | | procedure) | + + +------+ + + +------+ [...] Alive | | + +------+ + + Social [...] | | | + +---+---+---+ + + +---------+ + | Alcohol Use | Drinks/We | oz/Week | Comments | | | ek | | | + + +---------+ + | Yes | | | rare | + + +---------+ + + + + | Sex Assigned at | Date Recorded | | | | + + + | Not on file | | + + + Last Filed Vital Signs + + + + | Vital Sign | Reading | Time Taken | + + + + | Blood Pressure | 110/66 | 06/30/2018 3:02 PM PDT | + + + + | Pulse | 95 | 06/30/2018 3:02 PM PDT | + + + + | Temperature | - | - | + + + + | Respiratory Rate | 20 | 02/17/2018 10:22 AM PST | + + + + | Oxygen Saturation | 95% | 06/30/2018 3:02 PM PDT | + + + + | Inhaled Oxygen | - | - | | Concentration | | | + + + + | Weight | 118.3 kg (260 lb | 06/30/2018 3:02 PM PDT | | | 14.4 oz) | | + + + + | Height | 190.5 cm (6' 3") | 06/30/2018 3:02 PM PDT | + + + + | Body Mass Index | 32.61 | 06/30/2018 3:02 PM PDT | + + + + Plan of Treatment + + + + + | Health Maintenance | Due Date | Last Done | Comments | + + + + + | Diabetic Eye Exam | | | | | | 0 | | | + + + + + | Diabetic Foot Exam | | | | | | 0 | | | + + + + + | Hemoglobin A1c | | | | | | 0 | | | + + + + + | Microalbumin | | | | | Screening | 0 | | | + + + + + | Vaccine: | | | | | Dtap/Tdap/Td (1 - | 9 | | | | Tdap) | | | | + + + + + | Vaccine: | | | | | Pneumococcal 19-64 | 9 | | | | (PPSV23 only) Medium | | | | | Risk (1 of 1 - | | | | | PPSV23) | | | | + + + + + | Colon Cancer | | | | | Screening [...] | | + + + + + Results Not on filefrom Last 3 Months Insurance + +--------+ +------+-------+ + | Payer | Benefi | Subscriber | Type | Phone | Address | | | t Plan | ID | | | | | | / | | | | | | | Group | | | | | + +--------+ +------+-------+ + | MEDICARE | MEDICA | [id number] | | | [address] | | | RE | | | | [place], [place] [address] | | | IP-OP | | | | | + +--------+ +------+-------+ + | AETNA | AETNA | [id number] | | | | | | - | | | | | | | [place] | | | | | | | [place] - | | | | | | | [place] | | | | | + +--------+ +------+-------+ + + +--------+ +--------+ + + | Guarantor Name | Accoun | Relation to | Date | Phone | Billing Address | | | t Type | Patient | of | | | | | | | | | | + +--------+ +--------+ + + | VIDA RODAS | Person | Self [birth year] Home: | [address] | | | al/[place]in | | 1961 | [phone] [place] | | | [place] | | | [phone] | [address] | + +--------+ +--------+ + +
--- OUTSIDE RECORDS SUMMARY | ~2019-08-11 | XMS | Encounter Summary ---
Demographics + + + | Address | [address] | | | [place] [address] | + + + | Home Phone | | + + + | Preferred Language | Unknown | + + + | Marital Status | | + + + | Amish Affiliation | Unknown | + + + | Race | Unknown | + + + | Ethnic Group | Unknown | + + + Author + + + | Author | [facility] | | | and [place] | + + + | Organization | [facility] | | | and [...] Providers + +------+ + | Care Boat Patcher Plastic Name | Role | Phone | + +------+ + | Toi Hwang DO | PCP | | + +------+ + Encounter Details +--------+ + + + + | Date | Type | Department | Care Team | Description | +--------+ + + + + | 03/30/ | Orders Only | [facility] | Maite Yen | | | 2020 | | CARDIOLOGY [place] | [address], PERFORMANCE [address] | | | | | [address] | [address] | | | | | [address] [facility] | [place] [address] | | | | | [address] | [phone] | | | | | [phone] | | | +--------+ + + + [...]
--- OUTSIDE RECORDS SUMMARY | ~2019-08-11 | XMS ---
Demographics + + + | Address | [address] | | | [place] [address] | + + + | Preferred Language | Unknown | + + + | Marital Status | Unknown | + + + | Jain Affiliation | Unknown | + + + | Race | Unknown | + + + | Ethnic Group | Unknown | + + + Author + + + | Author | [facility] | + + + | Organization | [facility] | + + + | Address | [address] | | | [place] [address] | + + + | Phone | | + + + Care Team Providers + + + + | Care Antisqueak Chalker Name | Role | Phone | + + + + Unavailable | Unavailable | + + + + PROBLEMS +---------+ + + +--------+ + + | Type | Condition | ICD9-CM | AOH30-HQ | Onset | Condition | SNOMED | | | | Code | Code | Dates | Status | Code | +---------+ + + +--------+ + + | Problem | H/O | Z95.2 | | | Active | [id number] | | | mechanical | | | | | 13472 | | | aortic | | | | | | | | valve | | | | | | | | replacemen | | | | | | | | t | | | | | | +---------+ + + +--------+ + + | Problem | Hypertensi | I11.9 | | | Active | [id number] | | | ve | | | [...] | | I25.10 | | Active | 58958993 | | | (arteriosc | | | | | | | | lerotic | | | | | | | | heart | | | | | | | | disease) | | | | | | +---------+ + + +--------+ + + | Problem | Type 2 | E11.65 | | | Active | [id number] | | | diabetes | | | | | 14364 | | | mellitus | | | [...] | G47.33 | | | Active | 06340192 | | | (obstructi | | | | | | | | ve sleep | | | | | | | | apnea) | | | | | | +---------+ + + +--------+ + + | Problem | Chronic | | Z79.01 | | Active | 940471224 | | | anticoagul | | | | | | | | ation | | | | | | +---------+ + + +--------+ + + | Problem | Screening | Z13.89 | | | Active | [id number] | | | for | | | | | | | | alcoholism | | | | | | +---------+ + + +--------+ + + | Problem | Type 2 | E11.65 | | | Active | [id number] | | | diabetes | | | | | 37622 | | | mellitus | | | | | | | | with | | | | | | | | hyperglyce | | | | | | | | mariola | | | | | | +---------+ + + +--------+ + + | Problem | Major | F32.9 | | | Active | 16451484 | | | depressive | | | [...] | | E78.1 | | Active | 511973815 | | | yceridemia | | | | | | +---------+ + + +--------+ + + | Problem | FDC | Z79.4 | | | Active | 451351649 | | | current | | | | | | | | use of | | | | | | | | insulin | | | | | | +---------+ + + +--------+ + + | Problem | S/P AVR | Z95.2 | | | Active | [id number] | | | | | | | | 91657 | +---------+ + + +--------+ + + ALLERGIES + + + + +--------+ | Substance | Reaction | Event Type | Date | Status | + + + + +--------+ | Heparin | Unknown | Non Drug | Aug, | Active | | | | Allergy | | | + + + + +--------+ SOCIAL HISTORY No smoking Hx information available PLAN OF CARE + +---------+ | Activity | Details | + +---------+ +---+ | | +---+ + + + | Follow Up | prn Reason:null | + + + VITAL SIGNS + + + + | Height | 75 in | 2016-08-29 | + + + + | Weight | 242.1 lbs | 2016-08-29 | + + + + | BMI | 30.26 kg/m2 | 2016-08-29 | + + + + | Temperature | 98.0 degrees Fahrenheit | 2016-08-29 | + + + + | Heart Rate | 77 /min | 2016-08-29 | + + + + | Blood pressure systolic | 149 mm Hg | 2016-08-29 | + + + + | Blood pressure diastolic | 66 mm Hg | 2016-08-29 | + + + + MEDICATIONS + + + + + + + +--------+ | Medicati | Instruct | Dosage | Frequenc | Start | End Date | Duration | Status | | on | ions | | y | Date | | | | + + + + + + + +--------+ | Aspirin | Orally | 1 tablet | 24h | | | | Active | | 81 MG | Once a | | | | | | | | | day | | | | | | | + + + + + + + +--------+ | Pepcid | Orally | 1 tablet | 12h | | | 30 days | Active | | 40 MG | twice a | | | | | | | | | day | | | | | | | + + + + + + + +--------+ | Coumadin | Orally | 1 tablet | | 09 Feb, | | 30 | Active | | 2.5 MG | Once a | | | 2017 | | day(s) | | | | day as | | | | | | | | | directed | | | | | | | | | by | | | | | | | | | coumadin | | | | | | | | | clinic | | | | | | | + + + + + + + +--------+ | Humulin | Subcutan | 20 units | 24h | | | | Active | | N 100 | eous | in am | | | | | | | UNIT/ML | daily | and | | | | | | | | | 25units | | | | | | | | | in pm | | | | | | + + + + + + + +--------+ | Coumadin | Orally | 1 tablet | 24h | 29 Dec, | | 30 | Active | | 5 MG | Once a | | | 2016 | | day(s) | | | | day | | | | | | | + + + + + + + +--------+ | Atorvast | Orally | 1 tablet | 24h | | | | Active | | atin | Once a | | | | | | | | Calcium | day | | | | | | | | 80 MG | | | | | | | | + + + + + + + +--------+ | Oxycodon | Orally | 1 tablet | 6h | | | | Active | | e-Acetam | every 6 | as | | | | | | | inophen | hrs | needed | | | | | | | 7.5-325 | | | | | | | | | MG | | | | | | | | + + + + + + + +--------+ | Hydrocod | Orally | 1 tablet | 6h | | | | Active | | one-Acet | every 6 | as | | | | | | | aminophe | hrs | needed | | | | | | | n 10-325 | | | | | | | | | MG | | | | | | | | + + + + + + + +--------+ | Metoprol | Orally | 1 tablet | 24h | | | 30 days | Active | | ol | Once a | | | | | | | | Succinat | day | | | | | | | | e ER 100 | | | | | | | | | MG | | | | | | | | + + + + + + + +--------+ RESULTS No Results PROCEDURES + + + + + | Procedure | Date Ordered | Related Diagnosis | Body Site | + + + + + | Office Visit, Est | August 29, 2016 | | | | Pt., Level 3 | | | | + + + + + IMMUNIZATIONS No Known Immunizations"
--- OUTSIDE RECORDS SUMMARY | ~2019-08-11 | XMS | Encounter Summary ---
Demographics + + + | Address | [address] | | | [place] [address] | + + + | Home Phone | | + + + | Preferred Language | Unknown | + + + | Marital Status | | + + + | Gnosticist Affiliation | Unknown | + + + | Race | Unknown | + + + | Ethnic Group | Unknown | + + + Author + + + | Author | [facility] | | | and [place] | + + + | Organization | [facility] | | [...] Team Providers + +------+ + | Care Substance Abuse Nurse Name | Role | Phone | + +------+ + | Toi Hwang DO | PCP | | + +------+ + Reason for Visit + + + | Reason | Comments | + + + | Medication Refill | | + + + Encounter Details +--------+--------+ + + + | Date | Type | Department | Care Team | Description | +--------+--------+ + + + | 06/27/ | Refill | [facility] | Maite Yen | Medication Refill | | 2020 | | CARDIOLOGY [place] | [address] | | | | | [address] | [address] | | | | | [place], [place] | [place] [address] | | | | | [address] | [phone] | | | | | [phone] | | | +--------+--------+ + + + Social History + +-------+ [...]
--- OUTSIDE RECORDS SUMMARY | ~2019-08-11 | XMS | Encounter Summary ---
Demographics + + + | Address | [address] | | | [place] [address] | + + + | Home Phone | | + + + | Preferred Language | Unknown | + + + | Marital Status | | + + + | Pentecostal Affiliation | Unknown | + + + | Race | Unknown | + + + | Ethnic Group | Unknown | + + + Author + + + | Author | [facility] | | | and [place] | + + + | Organization | [facility] | | | [...] Team Providers + +------+ + | Care Tractor Drill Operator Name | Role | Phone | + +------+ + | Toi Hwang DO | PCP | | + +------+ + Reason for Referral Diagnostic/Screening (Routine) + +--------+ + + + + | Status | Reason | Specialty | Diagnoses / | Referred By | Referred To | | | | | Procedures | Contact | Contact | + +--------+ + + + + | Authorized | | Radiology | Diagnoses | [place] | [facility] [place], [address] | | | | | Dissection | [address]on, | [address] | | | | | of thoracic | [address] | [place], [place] | | | | | aorta (HCC) | [address] | [address] | | | | | | [address] | Phone: | | | | | Thoracoabdom | [place], [place] | [phone] | | | | | inal aortic | [address] | Fax: | | | | | aneurysm | Phone: | [phone] | | | | | (TAAA) | [phone] | | | | | | without | Fax: | | | | | | rupture | [phone] | | | | | | (HCC) | | | | | | | Marfan's | | | | | | | syndrome | | | | | | | Procedures | | | | | | | CT Angiogram | | | | | | | Chest | | | | | | | Abdomen | | | | | | | Pelvis w | | | | | | | Contrast | | | + +--------+ + + + + Encounter Details +--------+ + + + + | Date | Type | Department | Care Team | Description | +--------+ + + + + | 03/30/ | Orders Only | [facility] | Maite Yen | Dissection of | | 2019 | | [facility]Y [place] | [address] | thoracic aorta (HCC) | | | | [address] | [address] | (Primary Dx); | | | | [address] [place], [place] | [place] [address] | Thoracoabdominal | | | | [address] | [phone] | aortic aneurysm | | | | [phone] | | (TAAA) without | | | | | | rupture (HCC); | | | | | | Marfan's syndrome | +--------+ + + + + Social [...] of this encounter Plan of Treatment + +---------+--------+ + + | Name | Type | Priori | Associated Diagnoses | Order Schedule | | | | ty | | | + +---------+--------+ + + | CT Angiogram Chest | Imaging | Routin | Dissection of | Expected: | | Abdomen Pelvis w | | e | thoracic aorta (HCC) | 03/30/2019, Expires: | | Contrast | | | Thoracoabdominal | 03/30/2020 | | | | | aortic aneurysm | | | | | | (TAAA) without | | | | | | rupture (HCC) | | | | | | Marfan's syndrome | | + +---------+--------+ + + documented as of this encounter Visit Diagnoses + + | Diagnosis | + + | 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
--- OUTSIDE RECORDS SUMMARY | ~2019-08-11 | XMS | Encounter Summary ---
Demographics + + + | Address | [address] | | | [place] [address] | + + + | Home Phone | | + + + | Preferred Language | Unknown | + + + | Marital Status | | + + + | Nondenominational Affiliation | Unknown | + + + | Race | Unknown | + + + | Ethnic Group | Unknown | + + + Author + + + | Author | [facility] | | | and [place] | + + + | Organization | [facility] | | [...] Team Providers + +------+ + | Care Guest House Manager Name | Role | Phone | + [...] Authorized | | Radiology | Diagnoses | Melanie Yen | | | | | History of | Goldie, | Cardiology | | | | | aortic | [employer] [address] | [facility] | | | | | aneurysm | [address] | [address] | | | | | repair | [place] | [address] | | | | | Dissection | [place] | [place] [address] | | | | | of thoracic | [id number] | [id number] | | | | | aorta (HCC) | Phone: | Phone: | | | | | Essential | [phone] | | | | | | hypertension | Fax: | Fax: | | | | | Marfan's | | | | | | | syndrome | | | | | | | History of | | | | | | | mechanical | | | | | | | aortic valve | | | | | | | replacement | | | | | | | Coronary | | | | | | | artery | | | | | | | disease | | | | | | | involving | | | | | | | [place] | | | | | | | coronary | | | | | | | artery of | | | | | | | [place] heart | | | | | | | without | | | | | | | angina | | | | | | | pectoris | | | | | | | Regional | | | | | | | wall motion | | | | | | | abnormality | | | | | | | of heart | | | | | | | Murmur, | | | | | | | cardiac | | | | | | | Procedures | | | | | | | ECHO | | | | | | | Complete | | | + +--------+ + + + + Diagnostic/Screening (Routine) + +--------+ + + + + | Status | Reason | Specialty | Diagnoses / | Referred By | Referred To | | | | | Procedures | Contact | Contact | + +--------+ + + + + | Authorized | | Radiology | Diagnoses | Farshad, | [facility] [address] | | | | | History of | [place], | [address] | | | | | aortic | [employer] [address] | [place], [place] | | | | | aneurysm | [address] | [address] | | | | | repair | [place] | Phone: | | | | | Dissection | [place], [place] | [phone] | | | | | of thoracic | [id number] | Fax: | | | | | aorta (HCC) | Phone: | [phone] | | | | | Essential | [phone] | | | | | | hypertension | Fax: | | | | | | Marfan's | [phone] | | | | | | syndrome | | | | | | | History of | | | | | | | mechanical | | | | | | | aortic valve | | | | | | | replacement | | | | | | | Coronary | | | | | | | artery | | | | | | | disease | | | | | | | involving | | | | | | | [place] | | | | | | | coronary | | | | | | | artery of | | | | | | | [place] heart | | | | | | | without | | | | | | | angina | | | | | | | pectoris | | | | | | | Procedures | | | | | | | CT Chest | | | | | | | Abdomen | | | | | | | Pelvis w | | | | | | | Contrast | | | + +--------+ + + + + Reason for Visit + + + | Reason | Comments | + + + | Follow-up, Office | 6 month | | Visit | | + + + Encounter Details +--------+---------+ + + + | Date | Type | Department | Care Team | Description | +--------+---------+ + + + | 01/04/ | Office | [facility] | Maite Yen | History of aortic | | 2019 | Visit | CARDIOLOGY YOSHI | [address] | aneurysm repair | | | | [address] | [address] | (Primary Dx); | | | | [address] | [place] [address] | Dissection of | | | | [place] | [phone] | thoracic aorta | | | | [address] | | (HCC); Essential | | | | [phone] | | hypertension; | | | | | | Marfan's syndrome; | | | | | | History of | | | | | | mechanical aortic | | | | | | valve replacement; | | | | | | Coronary artery | | | | | | disease involving | | | | | | [place] coronary | | | | | | artery of [place] | | | | | | heart [...] insulin | | | | | | ([facility]); Sleep apnea | | | | | | with use of | | | | | | continuous positive | | | | | | airway pressure | | | | | | (CPAP); History of | | | | | | TIA (transient | | | | | | ischemic attack); | | | | | | Regional wall motion | | | | | | abnormality of | | | | | | heart; Murmur, | | | | | | cardiac | +--------+---------+ + + + Social History [...] + + + | Blood Pressure | 120/58 | 01/04/2019 1:35 PM | | | | | PDT | | + + + + + | Pulse | 86 | 01/04/2019 1:35 PM | | | | | PDT | | + + + + + | Temperature | - | - | | + + + + + | Respiratory Rate | - | - | | + + + + + | Oxygen Saturation | 96% | 01/04/2019 1:35 PM | | | | | PDT | | + + + + + | Inhaled Oxygen | - | - | | | Concentration | | | | + + + + + | Weight | 117.7 kg (259 lb 6.4 | 01/04/2019 1:35 PM | | | | oz) | PDT | | + + + + + | Height | 190.5 cm (6' 3") | 01/04/2019 1:35 PM | | | | | PDT | | + + + + + | Body Mass Index | 32.42 | 01/04/2019 1:35 PM | | | | | PDT | | + + + + + documented in this encounter Patient Instructions Patient Instructions Maite Yen FNP - 01/04/2019 1:30 PM PDTI have ordered you fasting labs to be done at [facility] in apr , just before you get CT of chest and abd done, and also ordered you an Echo to be done at [facility] I made no changes to medications See Dr. Rocha back in May to follow up on results documented in this encounter Progress Notes Maite Yen FNP - 01/04/2019 1:30 PM PDTFormatting of this note might be differe nt from the original. Date of visit: 01/04/2019 Primary Care Physician: Toi Hwang DO CHIEF COMPLAINT: Chief Complaint Patient presents with Follow-up, Office Visit 6 month HISTORY OF PRESENT ILLNESS: Mr. Comfort ( Richard) is a 58 year old man who is here today for 6-month follow-up. He is a patient of Dr. Rocha and last seen by him on 06/30/2018 I saw him last in 06/05/2017 when I followed up with him about the results of his echo, an d CT of his abdomen chest and neck., and ordered a repeat CMP and lipid panel to be done awais or to seeing Dr. Rocha, and encouraged him to work on his diet and exercise, to take his medi cations on a daily basis. He has significant history with a history of mechanical aortic valve replacement, coronar y artery disease, palpitations, hypertension, hyperlipidemia, transient ischemic attack, sta ble aortic dissection, improved EF 55-60 percent 04/2017, hyperlipidemia, type II diabetes, and peripheral vascular disease. 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 Le[facility]ardo aortic valve prosthesis and replacement of the ao rtic root) in 2006. 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 He developed acute renal failure and was transiently on hemodialysis. His 05/2016 CT angiogram, reported an extensive type I dissection, occlusion of the righ t common iliac artery, involvement of the brachiocephalic artery, and the left renal artery He was followed by Dr. Melchor at [facility] in [place] and the last note that I saw was in March 2015 stable distal aortic dissection with maximal diameter of 4.8 cm, and the plan was to follow him with serial CTs and/or MRIs. He reports he remains therapeutically anticoagulated on Coumadin for mechanical AVR with target 2.5-3.5 which is managed by the [place] [facility]. His last INR done 12/29/2018 2.8 and denies any signs of bleeding. Today that he has been stable since last seen by Dr. Rocha, and denies any chest pain, pa lpitations, peripheral or central edema, lightheadedness, or syncope. He also denies any si gns or symptoms of stroke or TIA. He denies any emergency room visits or hospitalizations since last seen. He continues to see stick inserter, Dr. Nickerson in [place], and his diabetes has been better controlled, but his triglycerides remain elevated despite being on a statin, fenofibr ate, Vascepa. He has been taking his medications on a consistent basis, and not eating as much, but still drinking soda 1-4 bottles three -four days per week , but not daily. He also does not exercise, and reports he gets claudication if he walks very far, and has not tried a stationary bike or other forms of exercise besides walking. He reports he has establish care with sleep specialist Dr. Kolb, and wears his CPAP nightl y. REVIEW OF SYSTEMS: Negative except for pertinent items noted in HPI. Constitutional: Denies fatigue or unexplained weight loss. Appetite is good. Weight is st able. Denies night sweats fevers or chills HENT: Denies nosebleeds. Denies hearing problems. Denies dysphagia Eyes: Wears glasses Denies visual disturbance or double vision. Denies history of catarac ts or glaucoma or macular degeneration. Respiratory/Sleep:: sleep apnea , wears CPAP Nightly Denies cough and shortness of breath. Denies hemoptysis or excessive sputum production. Denies , orthopnea, PND. Cardiovascular: Denies chest pain, palpitations and leg swelling. Denies history of rheuma tic fever. Reports claudication if walks more than 0.2 miles Gastrointestinal: GERD, on Pepcid . Denies nausea, vomiting, abdominal pain and blood i n stool. Genitourinary: Denies hematuria. Denies BPH Musculoskeletal: Denies myalgias, back pain and arthralgias. Skin: Denies color change. Denies rash or lesions Neurological: History of TIA following Bentall procedure in 2006. Denies history of stroke. Denies history of seizures. Denies dizziness, syncope and numbness. Denies focal motor or s ensory deficits Hematological/Oncology Does not bruise/bleed easily. Denies history of cancer Endocrine: type II diabetes, on insulin since 2007. Denies thyroid disease. Denies exces sive thirst or hunger. Psychiatric/Behavioral: Hx depression, denies any history Of other psychiatric illness. Vaccines: Current on 201 9 flu vaccine. Current on pneumonia vaccine., PPSV 23 and Prevn ar 13 Habits/Social : Denies history of smoking. Denies EtOH use. Drinks 2-3servings of caffein e daily, drinks coke or [place] Dew . Denies recreational or illicit drug use. Exercises with and tolerates. . Disabled , unemployed Outpatient Medications Prior to Visit Medication Sig Dispense Refill aspirin 81 MG [...] tablet Take 25 mg by mouth daily. metFORMIN (GLUCOPHAGE) 500 mg tablet Take 500 mg by mouth daily with breakfast. (Patien t taking differently: Take 500 mg by mouth 2 times daily (with breakfast & dinner).) metoprolol succinate (TOPROL-XL) 50 mg 24 hr tablet Take 50 mg by mouth Daily. Takes Metoprolol XL 100 mg for total dose of 150 mg metoprolol succinate (TOPROL-XL) 50 mg 24 hr tablet Take 1 tablet by mouth 3 (three) ti mes daily. (Patient taking differently: Take 100 mg by mouth Daily. Take one tablet daily w/ 50 mg tablet for total dose of 150 mg) 270 tablet 3 rOPINIRole (REQUIP) 0.5 MG tablet Take 0.5 mg by mouth nightly. warfarin (COUMADIN) 5 mg tablet Take 5 mg by mouth daily. 5 mg Everyday ,except wed ta kes 2.5 mg, targer INR 2-3 , followed by [facility]mad[facility] No facility-administered medications prior to visit. PHYSICAL EXAM: Wt Readings from Last 3 Encounters: 01/04/19 117.7 kg (259 lb 6.4 oz) 06/11/16 104.3 kg (230 lb) Temp Readings from Last 3 Encounters: No data found for Temp BP Readings from Last 3 Encounters: 01/04/19 120/58 06/11/16 140/80 Pulse Readings from Last 3 Encounters: 01/04/19 86 06/11/16 100 GENERAL: Well developed, well nourished, in no distress. Appears approximately stated age . HEENT: Normocephalic, atraumatic. EYES: PERRL, EOM normal. MOUTH: Oral mucosae moist, dentition adequate, no lesions noted NECK: No JVD, lymphadenopathy, thyromegaly, bruits. Carotid pulses are 2+ bilaterally LUNGS/CHEST: Clear bilaterally, with no rales, rhonchi or wheezing noted, respirations unl abored HEART: Well-healed sternotomy, mild crepitus . Nondisplaced PMI, regular rate and rhythm , S1, S2 normal. 2/6 Valve click and murmur RUSB loudest. No rubs or gallops noted. ABDOMEN: Soft, nontender, no organomegaly, masses or bruits. Bowel sounds are normal in a ll 4 quadrants. The abdominal aortic pulsation is not palpable. EXTREMITIES: No edema. Radial pulses 2+ bilaterally. Femoral pulses are 2+ bilaterally wi thout bruits. DP and PT pulses are 2+ bilaterally. No clubbing. SKIN: Warm and dry, capillary refill is normal, no lesions. NEUROLOGIC: Awake, alert and oriented x 3. No focal motor or sensory deficits. PSYCHIATRIC: Appropriate, affect appears normal DATA: Blood tests: Lab Results Component Value Date WBC 8.10 07/16/2016 RBC 5.46 07/16/2016 HGB 16.7 07/16/2016 Lab Results Component Value Date NA 142 04/17/2018 K 3.9 04/17/2018 CL 106 04/17/2018 CO2 23 04/17/2018 ANIONGAP 16.9 04/17/2018 GLUF 145 (A) 04/17/2018 BUN 13 04/17/2018 BCR 12.5 04/17/2018 EGFR 73 04/17/2018 Lab Results Component Value Date CHOL 93 04/17/2018 TRIG 282 (A) 04/17/2018 GLUF 145 (A) 04/17/2018 No results found for: BNP, TSH, CRP No results found for: TOTEPI CARDIAC PROCEDURES/IMAGING [facility]: 11/10/2006: ( [facility] [place] [facility] [place] ) Mechanical aortic valve procedure with aor tic root repair (Bentall). [facility]. Leobardo # [id number]. [id number], s# [id number] ( one coronary artery affec estrada by type A Aortic Dissection, 1 40% stenosis) Aortic dissection post-op 11/28 from left ma in coronary artery to iliacs. VASCULAR TESTING AND PROCEDURES Addendum: CT/CTA of chest abdomen and pelvis:04/14/2019: CTA: Aorta: Aortic valve prosthesis identified, normal aortic root caliber 3.0 3.3. And aortic dissection arising from ascend ing thoracic aorta is again identified with a false lumen located anteriorly and with propag ation extending into brachiocephalic artery. Dissection flap extends into the left subclavi an artery without significant change. Superior pointing saccular aneurysm arising from the false lumen of the aortic arch and immediately to the left lateral aspect of the brachioceph alic artery appears unchanged, measurements 2.5 x 2 x 2.7 in AP, transverse, and CC dimensio ns. Descending thoracic aortic dissection: appears unchanged within the true lumen located on t he medial side, and unchanged appearance of the fusiform aneurysmal dilation of the descendi ng aorta measuring 4.4 cm in diameter Heart and mediastinum: Heart size WNL, no pericardial effusion, mediastinal lymph nodes not pathologically enlarged. Lungs trachea and bronchial tree patent, no focal intraparenchymal lung disease visualized no pneumothorax or pleural effusions. Bones :no suspicious lytic or sclerotic bony lesions identified. CTA abdomen and pelvis: abdominal aorta propagation of thoracic aortic dissection is again seen extending into the abdominal aorta and to the bilateral common iliac arteries. At leve l of mesenteric vessels the dissection is seen anteriorly, and the mesenteric vessels arise from the true lumen. Aortic bifurcation patent. Fusiform aneurysmal dilation of the right common iliac artery with redemonstration of thrombus of the posterior false lumen. Fusiform borderline aneurysmal dilation of the infrarenal abdominal aorta measuring 3.3 x 3 cm in th e infrarenal region Visceral vasculature: Celiac axis patent without hemodynamically significant stenosis. SMA : Patent without hemodynamically significant stenosis. JOSEPH: Patent. Right renal: Single ve ssel, right renal artery supplied by combination of true and false lumen with the terminatio n the dissection near the ostium, appears patent without significant stenosis. Left renal: single vessel, arises from false lumen without significant stenosis, symmetric perfusion to lateral kidneys. Nonvascular findings: Hepatobiliary: Diffuse hypoattenuation of the liver consistent with fatty infiltration. Redemonstration of subcentimeter low-density lesions in the inferior hepatic lobe, too small to characterize by CT criteria but consistent with sim ple cyst. 2 cm subcapsular simple cyst in the medial and inferior right hepatic lobe unchan ged. Absent gallbladder consistent with cholecystectomy spleen unremarkable, pancreas unrem arkable, adrenals unremarkable. Stable 2 cm simple cyst in medial upper pole of the right k idney, no hydronephrosis or perinephric soft tissue stranding. No nephrolithiasis or nephro sis to left kidney, no perinephric soft tissue stranding. Bowel: No dilation of small bowel loops, no significant colonic stool burden, no inflamma tory changes. Normal appendix. Will increase in the size of at least 4 calculi at the base of the bladder measuring up to 1.5 cm in diameter, previously 1 cm. No significant free fl uid or pathologic lymphadenopathy. No suspicious lytic or sclerotic bony lesions visualized . Impression CTA chest: Stable appearance of aortic dissection extending from the ascending a kerwin, propagation into the left subclavian artery with extension into the descending thoraci c aorta. 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 Bilateral common carotid arteries arise from the true lumen as before, no acute p athology. Impression CT abdomen and pelvis. Stable CT appearance of propagated thoracic aortic disse ction into the abdominal aorta and with extension to the common iliac arteries. Partial thr ombosis of false lumen in the right common iliac artery again identified with stable mild an eurysmal dilation propagation into the left common iliac artery and proximal aspect of the e xternal iliac artery appears unchanged. The mesenteric vessels appear patent arising from the true lumen. Left renal artery arises from the false and and appears patent. Interval increase to the size of multiple bladder c alculi now measuring up to 1.5 cm CTA chest/abdomen/pelvis (05/04/18): Unchanged type A thoracic aortic dissection from the as cending aorta into the left external iliac artery CTA of neck w/ and w/o contrast and reconstruction: 05/27/2017: ([facility]) Aortic Arch: Redemonstration of Hayden-type A type aortic dissection flap extending into brachiocephalic artery 3 cm. Bulging of the false lumen along the medial aspect of the brac hiocephalic artery measuring 2 2.4 2.6 cm,compatible with pseudoaneurysm. Mild narrowing of the brachiocephalic artery. Dissection flap does not extend into the right subclavian ar lesley or common carotid artery. Dissection flap minimally extends into the origin of the lef t carotid artery without significant stenosis. Dissection flap extension to the left subcla vian artery at least to the level of the left vertebral artery origin, which appears to shirley e from the true lumen. This results in mild to moderate narrowing of the proximal left subc lavian artery and motion artifact limits the evaluation of the more distal left subclavian a rtery. Right carotid artery : Right common, internal, and external carotid arteries are widely pat ent without significant stenosis. Focal dilation of the mid right internal carotid artery i nvolving a 2 cm segment measuring up to 8 mm in diameter Left carotid artery: Left common, internal, and external carotid arteries widely patent wit hout significant stenosis. Mild focal dilatation of the distal internal carotid artery invo lving a 1.2 cm segment measuring up to 7 mm in diameter Vertebral arteries. Extracranial vertebral arteries and origins are widely patent without significant stenosis. Left vertebral artery is dominant. Mild focal dilatation of the left vertebral artery V2 segment measuring up to 6 mm in diameter. Other: 6 mm sclerotic focus T3 vertebral body, likely benign. Mild degenerative disease p resent in the cervical spine. Impression: Redemonstration of aortic dissection involving the ascending and descending aor ta incompletely visualized without significant change from 2017. Dissection extends in to the brachiocephalic artery with pseudoaneurysm measuring 2 2.4 2.6, similar to prior ex amination. Mild narrowing of the brachiocephalic artery. Dissection extends to left subcl anshu artery with mild to moderate narrowing. Patent cervical, carotid, and vertebral arter ies without hemodynamically significant stenosis. Areas of mild focal dilation involving th e arteries of the neck compatible with fusiform aneurysms measuring up to 8 in the right int ernal carotid artery, 7 mm in the left internal carotid artery, and 6 mm in the left vertebr al artery CTA of chest/abdomen/pelvis: 05/01/2017: ([facility]); Stable appearance of extensive type B thoracic dissection extending from the ascending th oracic aorta through the iliac bifurcation into both common iliac arteries and the left exte rnal iliac artery. Aneurysmal dilatation of the brachiocephalic artery with extension of di ssection into the left subclavian artery and right renal artery is unchanged. Bladder calcu li CTA Chest, Abdomen, Pelvis (07/16/16): Extensive type A aortic dissection seen from the asce nding aorta to the left common femoral artery. The dissection also appears to extend to the brachiocephalic artery and the left renal artery. The lumen and false lumen appear patent th roughout the majority of the dissection. The true lumen appears patent and also appears occl uded in the right common iliac artery. Aneurysmal dilatation of the brachycephalic artery up to 3.2 cm. Dissection extends into the right femoral artery which appears widely patent. Left renal artery appears to arise from the false lumen and appears widely patent. CTA chest, abdomen and pelvis (03/23/14): Chronic type A dissection, pulling defect in the left lateral ascending aorta, possible thrombus Carotid U/S (11/30/06): Normal ECHO Addendeum: Last Echo: 01/18/2019: ( [facility]) EF 50%, hypokinesis of inferior wall and apex: Mi ld LVH, paradoxical septal motion consistent with previous valve replacement surgery, normal diastolic function, mid to basal inferior wall hypokinesis. RV normal in size and function . Normal size atria. Trace AI, stable, normally functioning [address] [facility] mechanical ao rtic valve peak/mean 16/9. Mitral leaflets thickened, mild prolapse of anterior leaflet at junction of A2 and A3 segments, no stenosis, trace MR. Normal tricuspid with trace TR. Pul mariela valve not well visualized, trace NC. Sending aorta moderately enlarged 4.6 cm, linear dissection flap again noted in ascending aorta in the abdominal aorta with no 1 DeBakey typ e I Florencio type a chronic aortic dissection, stable. IVC WNL. No pericardial effusion. No pleural effusion Echo: 05/01/2017: ( [facility]) Sinus rhythm.TAS. . EF improved, 55-60 percent. Stable s egmental wall motion abnormalities noted in inferoseptal and apical gomez. LV normal in siz e. Mild LVH. Mild, grade 1 diastolic dysfunction normal for age.regional wall motion abnor malities for LV: mid inferoseptal - mildly hypokinetic; apical septum - moderately hypo kinetic; apex - severely hypokinetic; remaining left ventricular segments contract norm ally. RV normal in size and function. Normal size atria. Trace AR, normally functioning m echanical prosthetic valve. Mitral valve thickened with myxomatous degeneration, trace MR, no mitral valve prolapse or mitral stenosis. Trace TR. Unable to assess PASP d/t lack ad equate TR jet. , trace mild NC and ascending aorta dilated 45 mm, stable. A linear density, representing a dissection flap, is seen in the upper ascending aorta, arch, and upper desce nding aorta consistent with Hx DeBakey type 1 - Hayden type A -dissection, known to extend into the abdominal aorta, no change noted in comparison to the previous study. Echo (07/16/16): EF 40-45%, septal and apical wall motion abnormalities, grade 1 diastolic d ysfunction, normal RV. Normal mechanical AVR. The ascending aorta is dilated, 4.6 cm, wi th a linear density consistent with a dissection flap EKG/EVENT MONITOR 2 Week Event Recorder (07/16/16): sinus rhythm, rare PVC's and PAC's and a single, 6 beat ru n of PAT. His one reported symptomatic episode of "dizziness" corresponded to normal sinus r hythm. EK12/23/2016: Normal sinus rhythm, possible left atrial enlargement, left bundle branch b lock. Rate 77 bpm, NC 182 ms, QRS 144 ms, QTC 443 , tracing personally reviewed by me EK06/30/2018: Normal sinus rhythm, stable left bundle branch block. Rate 93 bpm, NC 204 m s, QRS 136 ms, QTC 489 ms, tracing personally reviewed by me, and compared to EKG performed in December 2016, NC interval has lengthened. LABS Lipid panel (07/16/16): TC-117, LDL-could not be calculated, HDL-31, TG-559 Labs: 2016: Lipids: Cholesterol 115, triglycerides 107, HDL 30, LDL 63, ratio 3.8, VL DL 21, non-HDL cholesterol 85. CMP: Glucose 262, BUN 24, creatinine 1.29, total bilirubin 0. 5, alk phos 91, ALT 21, AST 14, sodium 140, potassium 4.4, chloride 103, CO2 26, GFR 57 Labs: 12/02: Sodium 136, potassium 3.7, chloride 102, glucose 252, BUN 13, creatinine 0.97, GFR 80, AST 28, ALT 30, alk phos 82, total bilirubin 0.7, A1c 9.5 Labs: 2017: CMP: Sodium 139, potassium 3.6, chloride 103, glucose 168, BUN 13, creatin ine 1.04, GFR 74. AST 26, ALT 30, alk phos 66, total bilirubin 0.7, albumin 3.8. A1c 9.2. CBC: WBC 5.8, hemoglobin 15.5, hematocrit 49, platelets 162 Labs: 04/24/2017: Lipids: Cholesterol 102, triglycerides 450, HDL 26.1, LDL calculation inval id w/ Trig >400.. Ratio 3.9, non-HDL cholesterol 76. ( Atorvastatin 80 mg, fenofibrate 16 0 mg) CMP: Sodium 139, potassium 3.7, chloride 107, glucose 197, BUN 12, creatinine 0.96, A ST 25, ALT 34, alk phos 71, total bilirubin 0.8, GFR 81, albumin 4. ESR 3 Lipid panel :04/17/18:LIPIDS; :( atorvastatin 80 mg / Fenofibrate 160 mg)Cholesterol 93, tri glycerides 283, HDL 26.3, LDL 10. CMP: glucose 145, BUN 13, creatinine 1.04, albumin 4.1, t otal bili 0.7, alk phos 66, ALT 34, AST 30, sodium 142, potassium 3.9, chloride 106, GFR 73 10/19/2018:( Dr. Nickerson) HBa1c 7.6%; TG 366; LDL-unable to calculate 12/29/2018: INR: 2.8 ASSESSMENT & PLAN: Orion was here today for a 6-month follow-up. He has problems as detailed below. Overall he seems fairly stable, but his lipids performed in March had shown triglycerides and lipids in general better controlled. September, but his heart rate and blood pressure well controlled on current medications, and remains asymptomatic I reviewed the tests results in detail with him/her I made no changes to cardiac medications today, and he should continue ASA 81 mg daily, a torvastatin 80 mg nightly with fenofibrate 160 mg daily and Vascepa 1 g twice daily for hyp erlipidemia with elevated triglycerides, losartan 25 mg daily for heart function and hyperte nsion, metoprolol XL 150 mg daily for heart rate control and heart function, and Coumadin da raphael with target INR-3.5 for stroke prevention with mechanical AVR. I have ordered him an updated CT of his abdomen and chest for updated evaluation of his dis sected thoracic Aorta with Marfan's , as well as an echo to evaluate his EF, mechanical aor tic valve, and wall motion abnormalities. All testing can be performed at [facility] in April, and he can follow-up with Dr. Rocha about the results in May. I also ordered an updated CMP and lipid panel to be performed in April so that he had an updated creatinine for the testing, as well as updated labs for Dr. Rocha. He is aware he can see me sooner if needed, and I continue to encourage him to work on his diet and exercise, including stopping drinking soda.. 1. History of aortic aneurysm repair 2. Dissection of thoracic aorta (HCC) 3. Essential hypertension 4. Marfan's syndrome 5. History of mechanical aortic valve replacement 6. Coronary artery disease involving [place] coronary artery of [place] heart without angina pectoris 7. Mixed hyperlipidemia 8. Diabetes mellitus due to underlying condition, controlled, without complication, with lo ng-term current use of insulin (HCC) 9. Sleep apnea with use of continuous positive airway pressure (CPAP) 10. History of TIA (transient ischemic attack) 11. Regional wall motion abnormality of heart 12. Murmur, cardiac Orders Placed This Encounter Procedures CT Chest Abdomen Pelvis w Contrast Comprehensive Metabolic Panel Lipid Panel ECHO Complete The following portions of the patient's history were personally reviewed by me and updated as appropriate: EKG tracings, other specialty provider and PCP notes,any Hospital admission and discharge summaries, any ER records , current and previous cardiac testing and procedure reports and d minerva, , medication bottles brought to visit today personally reviewed by me. Allergies, current medications.labs Family history, past medical history, past social history, past surgical history. Problem list. Panchito EDEN [facility] Cardiology 01/04/2019 Louis ented in this encounter Plan of Treatment + + +--------+ + + | Name | Type | Priori | Associated Diagnoses | Order Schedule | | | | ty | | | + + +--------+ + + | CT Chest Abdomen | Imaging | Routin | History of aortic | Expected: | | Pelvis w Contrast | | e | aneurysm repair | 04/26/2019, Expires: | | | | | Dissection of | 01/05/2020 | | | | | thoracic aorta (HCC) | | | | | | Essential | | | | | | hypertension | | | | | | Marfan's syndrome | | | | | | History of | | | | | | mechanical aortic | | | | | | valve replacement | | | | | | Coronary artery | | | | | | disease involving | | | | | | [place] coronary | | | | | | artery of [place] | | | | | | heart without angina | | | | | | pectoris | | + + +--------+ + + | ECHO Complete | Echocardiog | Routin | History of aortic | Expected: | | | eneida | e | aneurysm repair | 04/26/2019, Expires: | | | | | Dissection of | 01/05/2020 | | | | | thoracic aorta (HCC) | | | | | | Essential | | | | | | hypertension | | | | | | Marfan's syndrome | | | | | | History of | | | | | | mechanical aortic | | | | | | valve replacement | | | | | | Coronary artery | | | | | | disease involving | | | | | | [place] coronary | | | | | | artery of [place] | | | | | | heart without angina | | | | | | pectoris Regional | | | | | | wall motion | | | | | | abnormality of heart | | | | | | Murmur, cardiac | | + + +--------+ + + | Comprehensive | Lab | Routin | Mixed | 1 Occurrences | | Metabolic Panel | | e | hyperlipidemia | starting 01/04/2019 | | | | | Diabetes mellitus | until 01/05/2020 | | | | | due to underlying | | | | | | condition, | | | | | | controlled, without | | | | | | complication, with | | | | | | long-term current | | | | | | use of insulin (HCC) | | + + +--------+ + + | Lipid Panel | Lab | Routin | Mixed | Expected: | | | | e | hyperlipidemia | 04/06/2019, Expires: | | | | | Diabetes mellitus | 01/05/2020 | | | | | due to underlying | | | | | | condition, | | | | | | controlled, without | | | | | | complication, with | | | | | | long-term current | | | | | | use of insulin (HCC) | | + + +--------+ + + documented as of this encounter Visit Diagnoses + + | Diagnosis | + + | History of aortic aneurysm repair - Primary Other postprocedural status | + + | Dissection of thoracic aorta (HCC) Dissection of aorta, thoracic | + + | Essential hypertension Unspecified essential hypertension | + + | Marfan's syndrome | + + | History of mechanical aortic valve replacement Heart valve replaced by other means | + + | Coronary artery disease involving [place] coronary artery of [place] heart without | | angina pectoris | + + | Mixed hyperlipidemia | + + | Diabetes mellitus due to underlying condition, controlled, without complication, with | | long-term current use of insulin (HCC) | + + | Sleep apnea with use of continuous positive airway pressure (CPAP) | + + | History of TIA (transient ischemic attack) Transient ischemic attack (TIA), and | | cerebral infarction without residual deficits | + + | Regional wall motion abnormality of heart Nonspecific (abnormal) findings on | | radiological and other examination of other intrathoracic organs | + + | Murmur, cardiac Undiagnosed cardiac murmurs | + + documented in this encounter
--- OUTSIDE RECORDS SUMMARY | ~2019-08-11 | XMS | Encounter Summary ---
Demographics + + + | Address | [address] | | | [place] [address] | + + + | Home Phone | | + + + | Preferred Language | Unknown | + + + | Marital Status | | + + + | Latter-Day Affiliation | Unknown | + + + | Race | Unknown | + + + | Ethnic Group | Unknown | + + + Author + + + | Author | [facility] | | | and [place] | + + + | Organization | [facility] | | | [...] Team Providers + +------+ + | Care Lens Grinder Name | Role | Phone | + [...] + + | 06/16/ | Office | [facility] | Ulises Rocha Robert, | Marfan's syndrome | | 2019 | Visit | CARDIOLOGY [place] | [address] | (Primary Dx); | | | | [address] | [address], | Dissection of aorta, | | | | [place], [place] | [place] [address] | thoracoabdominal | | | | [address] | [phone] | (HCC); History of | | | | [phone] | | aortic aneurysm | | | | | | repair; History of | | | | | | mechanical aortic | | | | | | valve replacement; | | | | | | Coronary artery | | | | | | disease involving | | | | | | [place] coronary | | | | | | artery of [place] | | | | | | heart [...] insulin | | | | | | ([facility]); Bladder | | | | | | [...] to the lower stress of living in [place], as opposed to [place]. A lipid panel March showed a significant [...] Date AORTIC VALVE REPLACEMENT 11/10/2006 [facility] [id number], s# [id number], [facility], with Aortic root rep air ([place]) CARDIAC [...] file Gets together: Not on file Attends alevism service: Not on file Active member of [...] mg, targer INR 2-3 , followed by [facility] coumadin clnic (Patient taking differently: Daniel e 5 mg by mouth Daily. Followed by [facility] coumadin clinic , target INR 2.5-3.5) Current [...] aortic valve replacement Coronary artery disease involving [place] coronary artery of [place] heart without angina pec toris Mixed hyperlipidemia Diabetes mellitus due to underlying condition, controlled, without complication, with long- term current use of insulin ([facility]) Bladder stones Preoperative cardiovascular examination Other orders [...] + + | Coronary artery disease involving [place] coronary artery of [place] heart without | | angina pectoris | [...]
--- OUTSIDE RECORDS SUMMARY | ~2019-08-11 | XMS | Encounter Summary ---
Demographics + + + | Address | [address] | | | [place] [address] | + + + | Home Phone | | + + + | Preferred Language | Unknown | + + + | Marital Status | | + + + | Jewish Affiliation | Unknown | + + + | Race | Unknown | + + + | Ethnic Group | Unknown | + + + Author + + + | Author | [facility] | | | and [place] | + + + | Organization | [facility] | | [...] Team Providers + +------+ + | Care Filtering Machine Tender Name | Role | Phone | + [...] [address] | | | | | [place], [place] | [place] [address] | | | | | [address] | [phone] | | | | | [phone] | | | +--------+ + + + [...] [place] type 1 | | | - [place] type A -dissection) known to extend into [...] history of a [place] type 1 - [place] type A -dissection) known to | | [...] Lateral e': 0.11 m/s Lateral E/e': 5.68 Trestle Mechanic: | | | Authenticated by: EUSEBIA PERREA MD Report Date/Time: 05-01-2017 | | | [...] cmLVIDd: 5.11 cmLVPWd: 1.24 cmLVOT Area: 4.71 [id number] Diam: 2.45 | | cm%FS: 28.62 %EF(Teich): [...] | | (A-L): 21.07 ml/m2LAAs A2C: 18.47 [id number] A-L A2C: 52.14 mlLALs A2C: 5.55 | | cmLAAs A4C: 16.29 [id number] A-L A4C: 44.81 mlLALs A4C: 5.02 cmRAAs: 16.55 | | hi2VAUNZ A-L: 48.05 mlRAESV MOD: 46.85 mlRALs: 4.83 cmTAPSE: 1.63 cmAV maxPG: | | 21.38 mmHgAV meanP.95 mmHgAV Vmax: 2.31 m/Gila Vmean: 1.55 m/Gila VTI: 46.15 | | cmAVA Vmax: 1.51 cm2AVA (VTI): 1.53 cg6PTPR Vmax: 0.00 cm2/m2AVAI (VTI): 0.00 | | cm2/m2LVOT maxP.19 mmHgLVOT meanP.15 mmHgLVSI Dopp: 29.37 ml/m2LVSV Dopp: | | 70.79 mlLVOT Vmax: 0.74 m/sLVOT Vmean: 0.49 m/sLVOT VTI: 15.00 cmMV A Aj: | | 0.70 m/sMV DecT: 185.48 msMV E Aj: 0.64 m/sMV E/A Ratio: 0.91MV PHT: 53.78 | | msMVA By PHT: 4.09 az3Nltlua e': 0.05 m/sSeptal E/e': 10.77Lateral e': 0.11 | | m/sLateral E/e': 5.68 Trestle Mechanic:Authenticated by: Carlos DEAL Date/Time: | | 05-01-2017 [...] history of a [place]ake[place] type 1 - [place] type A -dissection) known to extend into [...] | |Lateral E/e': 5.68 | | | |Trestle Mechanic: | |Authenticated by: EUSEBIA PERERA MD | [...] of a [place] | |type 1 - [place] type A -dissection) known | |to extend into the abdominal aorta. There is no change noted in comparison to the previous study. | + + documented in this encounter Visit Diagnoses Not on filedocumented in this encounter"
--- OUTSIDE RECORDS SUMMARY | ~2019-08-11 | XMS | Encounter Summary ---
Demographics + + + | Address | [address] | | | [place] [address] | + + + | Home Phone | | + + + | Preferred Language | Unknown | + + + | Marital Status | | + + + | Bahai Affiliation | Unknown | + + + | Race | Unknown | + + + | Ethnic Group | Unknown | + + + Author + + + | Author | [facility] | | | and [place] | + + + | Organization | [facility] | | | [...] Team Providers + +------+ + | Care Poultry Dressing Worker Name | Role | Phone | + +------+ + | Toi Hwang DO | PCP | | + +------+ + Encounter Details +--------+ + + + + | Date | Type | Department | Care Team | Description | +--------+ + + + + | 03/31/ | Orders Only | [facility] | Conversion | | | 2018 | | CONVERSION [address] | Transaction, | | | | | [address] | Provider Unknown | | | | | [place], [place] | [phone] | | | | | [address] | | | | | | [phone] | | | +--------+ + + + [...]
--- OUTSIDE RECORDS SUMMARY | ~2019-08-11 | XMS | Encounter Summary ---
Demographics + + + | Address | [address] | | | [place] [address] | + + + | Home Phone [...] Team Providers + +------+ + | Care Mail Handlers Supervisor Name | Role | Phone | + [...] + + | 05/05/ | Telephone | [facility] | Maite Yen | Results | | 2020 | | [facility]IOLOGY [place] | [address] | | | | | [address] | [address] | | | | | [address] | [place] [address] | | | | | [place] | [phone] | | | | | [address] | | | | | | [phone] | | | +--------+ + + + [...]
--- OUTSIDE RECORDS SUMMARY | ~2019-08-11 | XMS | Encounter Summary ---
Demographics + + + | Address | [address] | | | [place] [address] | + + + | Home Phone | | + + + | Preferred Language | Unknown | + + + | Marital Status | | + + + | Church Affiliation | Unknown | + + + | Race | Unknown | + + + | Ethnic Group | Unknown | + + + Author + + + | Author | [facility] | | | and [place] | + + + | Organization | [facility] | | | and [...] Team Providers + +------+ + | Care Certified Substance Abuse Counselor Name | Role | Phone | + [...] | | | | [place], [place] | [phone] | | | | | [address] | | | | | | [phone] | | | +--------+ + + + [...]
--- OUTSIDE RECORDS SUMMARY | ~2019-08-11 | XMS ---
Demographics + + + | Address | [address] | | | [place] [address] | + + + | Preferred Language | Unknown | + + + | Marital Status | Unknown | + + + | Gnosticism Affiliation | Unknown | + + + | Race | Unknown | + + + | Ethnic Group | Unknown | + + + Author + + + | Author | [facility] | + + + | Organization | [facility] | + + + | Address | [address] | | | [place] [address] | + + + | Phone | | + + + Care Team Providers + + + + | Care Power Transmission Engineer Name | Role | Phone | + + + + Unavailable | Unavailable | + + + + PROBLEMS +---------+ + + +--------+ + + | Type | Condition | ICD9-CM | HZK97-CF | Onset | Condition | SNOMED | | | | Code | Code | Dates | Status | Code | +---------+ + + +--------+ + + | Problem | H/O | Z95.2 | | | Active | [id number] | | | mechanical | | | | | 22609 | | | aortic | | | | | | | | valve | | | | | | | | replacemen | | | | | | | | t | | | | | | +---------+ + + +--------+ + + | Problem | Hypertensi | I11.9 | | | Active | 86398309 | | | ve | | | [...] | | I25.10 | | Active | 67966253 | | | (arteriosc | | | | | | | | lerotic | | | | | | | | heart | | | | | | | | disease) | | | | | | +---------+ + + +--------+ + + | Problem | Type 2 | E11.65 | | | Active | [id number] | | | diabetes | | | | | 15955 | | | mellitus | | | [...] | G47.33 | | | Active | 13060637 | | | (obstructi | | | | | | | | ve sleep | | | | | | | | apnea) | | | | | | +---------+ + + +--------+ + + | Problem | Chronic | | Z79.01 | | Active | 210192084 | | | anticoagul | | | | | | | | ation | | | | | | +---------+ + + +--------+ + + | Problem | Screening | Z13.89 | | | Active | [id number] | | | for | | | | | | | | alcoholism | | | | | | +---------+ + + +--------+ + + | Problem | Type 2 | E11.65 | | | Active | [id number] | | | diabetes | | | | | 53087 | | | mellitus | | | | | | | | with | | | | | | | | hyperglyce | | | | | | | | mariola | | | | | | +---------+ + + +--------+ + + | Problem | Major | F32.9 | | | Active | 12508386 | | | depressive | | | [...] | | E78.1 | | Active | 189363967 | | | yceridemia | | | | | | +---------+ + + +--------+ + + | Problem | retirement | Z79.4 | | | Active | [id number] | | | current | | | | | | | | use of | | | | | | | | insulin | | | | | | +---------+ + + +--------+ + + | Problem | S/P AVR | Z95.2 | | | Active | [id number] | | | | | | | | 45700 | +---------+ + + +--------+ + + ALLERGIES + + + + +--------+ | Substance | Reaction | Event Type | Date | Status | + + + + +--------+ | metformin | diarrhea | Non Drug | Nov, | Active | | | | Allergy | | | + + + + +--------+ | Heparin | Unknown | Non Drug | Nov, | Active | | | | Allergy | | | + + + + +--------+ SOCIAL HISTORY No smoking Hx information available PLAN OF CARE + +---------+ | Activity | Details | + +---------+ +---+ | | +---+ + + + | Follow Up | 4 Months Reason:null | + + + VITAL SIGNS + + + + | Height | 75 in | 2016-12-03 | + + + + | Weight | 253.4 lbs | 2016-12-03 | + + + + | BMI | 31.67 kg/m2 | 2016-12-03 | + + + + | Heart Rate | 79 /min | 2016-12-03 | + + + + | Blood pressure systolic | 141 mm Hg | 2016-12-03 | + + + + | Blood pressure diastolic | 66 mm Hg | 2016-12-03 | + + + + MEDICATIONS + [...] + + + + + +--------+ | Fenofibr | Orally | 1 tablet | 24h | | | | Active | | ate 160 | Once a | with a | | | | | | | MG | day | meal | | | | | | + + + + + + + +--------+ | Humulin | Subcutan | 60 units | | | | | Active | | N 100 | eous | | | | | | | | UNIT/ML | twice | | | | | | | | | daily | | | | | | | [...] + +--------+ | Metoprol | Orally | 1.5 | 24h | | | 90 days | Active | | ol | Once a | tablet | | | | | [...] + + | Office Visit, Est | Dec 03, 2016 | | | | Pt., Level 4 | | | | + + + + + IMMUNIZATIONS No Known Immunizations"
--- OUTSIDE RECORDS SUMMARY | ~2019-08-11 | XMS | Encounter Summary ---
Demographics + + + | Address | [address] | | | [place] [address] | + + + | Home Phone | | + + + | Preferred Language | Unknown | + + + | Marital Status | | + + + | Oriental Orthodox Affiliation | Unknown | + + + | Race | Unknown | + + + | Ethnic Group | Unknown | + + + Author + + + | Author | [facility] | | | and [place] | + + + | Organization | [facility] | | | [...] Team Providers + +------+ + | Care [employer] Advisor Name | Role | Phone | + [...] | Radiology | Diagnoses | Farshad | [facility] [address] | | | | | Dissection | [address], | [address] | | | | | of thoracic | FOOD COUNTER WORKER [address] | [place], [place] | | | | | aorta (HCC) | [address] | [address] | | | | | | [address] | Phone: | | | | | Thoracoabdom | [place], [place] | [phone] | | | | | inal aortic | [address] | Fax: | | | | | aneurysm | Phone: | [phone] | | | | | (TAAA) | [phone] | | | | | | without | Fax: | | | | | | rupture | [phone] | | | | | | (HCC) [...] + | 03/30/ | Orders Only | [facility] | Maite Yen | Dissection of | | 2019 | | CARDIOLOGY [place] | [address] | thoracic aorta (HCC) | | | | [address] | [address] | (Primary Dx); | | | | [address] [place], [place] | [place] [address] | Thoracoabdominal | | | | [address] | [phone] | aortic aneurysm | | | | [phone] | | (TAAA) without | | | [...]
--- OUTSIDE RECORDS SUMMARY | ~2019-08-11 | XMS | Encounter Summary ---
Demographics + + + | Address | [address] | | | [place] [address] | + + + | Home Phone | | + + + | Preferred Language | Unknown | + + + | Marital Status | | + + + | Church Affiliation | Unknown | + + + | Race | Unknown | + + + | Ethnic Group | Unknown | + + + Author + + + | Author | [facility] | | | and [place] | + + + | Organization | [facility] | | | [...] Team Providers + +------+ + | Care Dowel Setting Machine Operator Name | Role | Phone [...] | | | | [place], [place] | [phone] | | | | | [address] | | | | | | [phone] | | | +--------+ + + + [...]
--- OUTSIDE RECORDS SUMMARY | ~2019-08-11 | XMS | Encounter Summary ---
Demographics + + + | Address | [address] | | | [place] [address] | + + + | Home Phone | | + + + | Preferred Language | Unknown | + + + | Marital Status | | + + + | Pentecostalism Affiliation | Unknown | + + + | Race | Unknown | + + + | Ethnic Group | Unknown | + + + Author + + + | Author | [facility] | | | and [place] | + + + | Organization | [facility] | | | and [...] Team Providers + +------+ + | Care Online Project Manager Name | Role | Phone | [...] + + | 06/27/ | Refill | [facility] | Maite Yen | Medication Refill | | 2020 | | CARDIOLOGY [place] | [address] | | | | | [address] | [address] | | | | | [place], [place] | [place] [address] | | | | | [address] | [phone] | | | | | [phone] | | | +--------+--------+ + + + [...]
--- OUTSIDE RECORDS SUMMARY | ~2019-08-11 | XMS ---
Demographics + + + | Address | [address] | | | [place] [address] | + + + | Preferred Language | Unknown | + + + | Marital Status | Unknown | + + + | Anabaptist Affiliation | Unknown | + + + | Race | Unknown | + + + | Ethnic Group | Unknown | + + + Author + + + | Author | [facility] | + + + | Organization | [facility] | + + + | Address | [address] | | | [place] [address] | + + + | Phone | | + + + Care Team Providers + + + + | Care Sfdc Consultant Name | Role | Phone | + + + + Unavailable | Unavailable | + + + + PROBLEMS +---------+ + + +--------+ + + | Type | Condition | ICD9-CM | [id number] | Onset | Condition | SNOMED | | | | Code | Code | Dates | Status | Code | +---------+ + + +--------+ + + | Problem | H/O | Z95.2 | | | Active | [id number] | | | mechanical | | | | | 65199 | | | aortic | | | | | | | | valve | | | | | | | | replacemen | | | | | | | | t | | | | | | +---------+ + + +--------+ + + | Problem | Hypertensi | I11.9 | | | Active | 05116301 | | | ve | | | [...] | | I25.10 | | Active | 44929632 | | | (arteriosc | | | | | | | | lerotic | | | | | | | | heart | | | | | | | | disease) | | | | | | +---------+ + + +--------+ + + | Problem | Type 2 | E11.65 | | | Active | [id number] | | | diabetes | | | | | [address]372 | | | mellitus | | | [...] | G47.33 | | | Active | 22514730 | | | (obstructi | | | | | | | | ve sleep | | | | | | | | apnea) | | | | | | +---------+ + + +--------+ + + | Problem | Chronic | | Z79.01 | | Active | 029388493 | | | anticoagul | | | | | | | | ation | | | | | | +---------+ + + +--------+ + + | Problem | Screening | Z13.89 | | | Active | 696807632 | | | for | | | | | | | | alcoholism | | | | | | +---------+ + + +--------+ + + | Problem | Type 2 | E11.65 | | | Active | [id number] | | | diabetes | | | | | 01527 | | | mellitus | | | | | | | | with | | | | | | | | hyperglyce | | | | | | | | mariola | | | | | | +---------+ + + +--------+ + + | Problem | Major | F32.9 | | | Active | 90219424 | | | depressive | | | [...] | | E78.1 | | Active | 854545762 | | | yceridemia | | | | | | +---------+ + + +--------+ + + | Problem | [facility] | Z79.4 | | | Active | [id number] | | | current | | | | | | | | use of | | | | | | | | insulin | | | | | | +---------+ + + +--------+ + + | Problem | S/P AVR | Z95.2 | | | Active | [id number] | | | | | | | | 37038 | +---------+ + + +--------+ + + ALLERGIES Unknown Allergies SOCIAL HISTORY No smoking Hx information available PLAN OF CARE VITAL SIGNS MEDICATIONS Unknown Medications RESULTS No Results PROCEDURES No Known procedures IMMUNIZATIONS No Known Immunizations"
--- OUTSIDE RECORDS SUMMARY | ~2019-08-11 | XMS | Encounter Summary ---
Demographics + + + | Address | [address] | | | [place] [address] | + + + | Home Phone | | + + + | Preferred Language | Unknown | + + + | Marital Status | | + + + | Worship Affiliation | Unknown | + + + | Race | Unknown | + + + | Ethnic Group | Unknown | + + + Author + + + | Author | [facility] | | | and [place] | + + + | Organization | [facility] | | | [...] Team Providers + +------+ + | Care Self Storage Manager Name | Role | Phone | + +------+ + | Toi Hwang DO | PCP | | + +------+ + Encounter Details +--------+ + + + + | Date | Type | Department | Care Team | Description | +--------+ + + + + | 03/30/ | Orders Only | [facility] | Maite Yen | | | 2020 | | CARDIOLOGY [place] | Marisol, IMAGE PROCESSING ENGINEER [address] | | | | | [address] | [place] | | | | | [address] [facility] [place] | [place] [address] | | | | | [address] | [phone] | | | | | [phone] | | | +--------+ + + + [...]
--- OUTSIDE RECORDS SUMMARY | ~2019-08-11 | XMS | Encounter Summary ---
Demographics + + + | Address | [address] | | | [place] [address] | + + + | Home Phone | | + + + | Preferred Language | Unknown | + + + | Marital Status | | + + + | Orthodoxy Affiliation | Unknown | + + + | Race | Unknown | + + + | Ethnic Group | Unknown | + + + Author + + + | Author | [facility] | | | and [place] | + + + | Organization | [facility] | | [...] Team Providers + +------+ + | Care Drafter Electrical Name | Role | Phone | + [...] | | | | | aortic | SOFTWARE CLIENT ARCHITECT [address] | [place] [facility] | | | | | aneurysm | [address] | [address] | | | | | repair | [place] | [address] | | | | | Dissection | [place] | [place] | | | | | of thoracic | [address] | [address] | | | | | aorta (HCC) | Phone: | Phone: | | | | | Essential | [phone] | | | | | | hypertension [...] | | | | | | | [place] | | | | | | | coronary | | | | | | | artery of | | | | | | | [place] heart | | | | | | [...] | Radiology | Diagnoses | Farshad, | [facility] [address] | | | | | History of | [place], | [address] | | | | | aortic | SOFTWARE CLIENT ARCHITECT [address] | [place], [place] | | | | | aneurysm | [address] | [address] | | | | | repair | [place] | Phone: | | | | | Dissection | [place], [place] | [phone] | | | | | of thoracic | [address] | Fax: | | | | | aorta (HCC) | Phone: | [phone] | | | | | Essential | [phone] | | | | | | hypertension | Fax: | | | | | | Marfan's | [phone] | | | | | | syndrome [...] | | | | | | | [place] | | | | | | | coronary | | | | | | | artery of | | | | | | | [place] heart | | | | | | [...] + + | 01/04/ | Office | [facility] | Maite Yen | History of aortic | | 2019 | Visit | CARDIOLOGY [place] | [address] | aneurysm repair | | | | [address] | [place] | (Primary Dx); | | | | [address] | [place] [address] | Dissection of | | | | [place] | [phone] | thoracic aorta | | | | [address] | | (HCC); Essential | | | | [phone] | | hypertension; | | | | | | Marfan's syndrome; | | | | | | History of | | | | | | mechanical aortic | | | | | | valve replacement; | | | | | | Coronary artery | | | | | | disease involving | | | | | | [place] coronary | | | | | | artery of [place] | | | | | | heart [...] insulin | | | | | | ([facility]); Sleep apnea | | | [...] you fasting labs to be done at [facility] in apr , just before you get CT of chest and abd done, and also ordered you an Echo to be done at [facility] I made no changes to medications See [...] 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 Melchor at [facility] in [place] and the last note that I saw was in March 2015 stable distal aortic dissection with maximal diameter of 4.8 cm, and the plan was to follow him with serial CTs and/or MRIs. He reports he remains therapeutically anticoagulated on Coumadin for mechanical AVR with target 2.5-3.5 which is managed by the [facility]. His last INR done 12/29/2018 [...] since last seen. He continues to see dispensing operator, Dr. Nickerson in [place], and his diabetes has been better controlled, [...] TOTEPI CARDIAC PROCEDURES/IMAGING [facility]: 11/10/2006: ( prov [place] for [place]le[place] ) Mechanical aortic valve procedure with aor tic root repair ([facility]). [facility] [address]. [id number], s# [id number] ( one coronary artery affec estrada by [...] reconstruction: 05/27/2017: ([facility]) Aortic Arch: Redemonstration of De Young-type A type aortic dissection flap extending into [...] Pul mariela valve not well visualized, trace AL. Sending aorta moderately enlarged 4.6 cm, linear [...] ad equate TR jet. , trace mild AL and ascending aorta dilated 45 mm, stable. 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 Rate 77 bpm, AL 182 ms, QRS 144 ms, QTC 443 , tracing personally reviewed by me EK06/30/2018: Normal sinus rhythm, stable left bundle branch block. Rate 93 bpm, AL 204 m s, QRS 136 ms, QTC 489 ms, tracing personally reviewed by me, and compared to EKG performed in December 2016, AL interval has lengthened. LABS Lipid panel (07/16/16): [...] abnormalities. All testing can be performed at [facility] in April, and he can follow-up with [...] valve replacement 6. Coronary artery disease involving [place] coronary artery of [place] heart without angina pectoris 7. Mixed hyperlipidemia [...] past surgical history. Problem list. Panchito EDEN [facility] 01/04/2019 Louis ented in this [...] involving | | | | | | [place] coronary | | | | | | artery of [place] | | | | | | heart [...] involving | | | | | | [place] coronary | | | | | | artery of [place] | | | | | | heart [...] + + | Coronary artery disease involving [place] coronary artery of [place] heart without | | angina pectoris | [...]
--- OUTSIDE RECORDS SUMMARY | ~2019-08-11 | XMS | Encounter Summary ---
Demographics + + + | Address | [address] | | | [place] [address] | + + + | Home Phone | | + + + | Preferred Language | Unknown | + + + | Marital Status | | + + + | Yazidi Affiliation | Unknown | + + + | Race | Unknown | + + + | Ethnic Group | Unknown | + + + Author + + + | Author | [facility] | | | and [place] | + + + | Organization | [facility] | | [...] Team Providers + +------+ + | Care Psychological Tests Sales Agent Name | Role | Phone | + [...] + + | 03/23/ | Telephone | [facility] | Maite Yen | Testing | | 2019 | | CARDIOLOGY [place] | [address] | | | | | [address] | [address] | | | | | [address] | [place] [address] | | | | | [place] | [phone] | | | | | [address] | | | | | | [phone] | | | +--------+ + + + [...]
--- OUTSIDE RECORDS SUMMARY | ~2019-08-11 | XMS | Encounter Summary ---
Demographics + + + | Address | [address] | | | [place] [address] | + + + | Home Phone | | + + + | Preferred Language | Unknown | + + + | Marital Status | | + + + | Scientologist Affiliation | Unknown | + + + | Race | Unknown | + + + | Ethnic Group | Unknown | + + + Author + + + | Author | [facility] | | | and [place] | + + + | Organization | [facility] | | | [...] Team Providers + +------+ + | Care Air Export Operations Agent Name | Role | Phone | + +------+ + | Toi Hwang DO | PCP | | + +------+ + Encounter Details +--------+ + + + + | Date | Type | Department | Care Team | Description | +--------+ + + + + | 10/12/ | Orders Only | [facility] | Ulises Rocha, | | | 2018 | | CARDIOLOGY REGINA | [address] | | | | | [address] | [place], | | | | | [place], [place] | [place] [address] | | | | | [address] | | | | | | [phone] | (Fax) | | +--------+ + + [...]
--- OUTSIDE RECORDS SUMMARY | ~2019-08-11 | XMS | Encounter Summary ---
Demographics + + + | Address | [address] | | | [place] [address] | + + + | Home Phone | | + + + | Preferred Language | Unknown | + + + | Marital Status | | + + + | Mandaen Affiliation | Unknown | + + + | Race | Unknown | + + + | Ethnic Group | Unknown | + + + Author + + + | Author | [facility] | | | and [place] | + + + | Organization | [facility] [...] Team Providers + +------+ + | Care Treasury Consultant Name | Role | Phone | + +------+ + | Toi Hwang DO | PCP | | + +------+ + Encounter Details +--------+ + + + + | Date | Type | Department | Care Team | Description | +--------+ + + + + | 10/12/ | Orders Only | [facility] | Ulises Rocha, | | | 2018 | | CARDIOLOGY REGINA | [address] | | | | | [address] | [place], | | | | | [place], [place] | [place] [address] | | | | | [address] | | | | | | [phone] | (Fax) | | +--------+ + + [...]
--- OUTSIDE RECORDS SUMMARY | ~2019-08-11 | XMS | Encounter Summary ---
Demographics + + + | Address | [address] | | | [place] [address] | + + + | Home Phone | | + + + | Preferred Language | Unknown | + + + | Marital Status | | + + + | Congregation Affiliation | Unknown | + + + | Race | Unknown | + + + | Ethnic Group | Unknown | + + + Author + + + | Author | [facility] | | | and [place] | + + + | Organization | [facility] | | | [...] Team Providers + +------+ + | Care Equip Tech Name | Role | Phone | + +------+ + | Toi Hwang DO | PCP | | + +------+ + Encounter Details +--------+ + + + + | Date | Type | Department | Care Team | Description | +--------+ + + + + | 02/17/ | Orders Only | [facility] | Conversion | | | 2018 | | CONVERSION [address] | Transaction, | | | | | [address] | Provider Unknown | | | | | [place], [place] | [phone] | | | | | [address] | | | | | | [phone] | | | +--------+ + + + [...]
--- OUTSIDE RECORDS SUMMARY | ~2019-08-11 | XMS | Encounter Summary ---
Demographics + + + | Address | [address] | | | [place] [address] | + + + | Home Phone | | + + + | Preferred Language | Unknown | + + + | Marital Status | | + + + | Sikh Affiliation | Unknown | + + + [...] Phone | + + +---------+ + | Zuelma Moyer | ECON | Unknown | | + + +---------+ + Care Team Providers + +------+ + | Care Seed Cleaner Name | Role | Phone | + +------+ + | Toi Hwang DO | PCP | | + +------+ + Encounter Details +--------+ + + + + | Date | Type | Department | Care Team | Description | +--------+ + + + + | 08/12/ | Orders Only | [facility] | Conversion | | | 2018 | | CONVERSION [address] | Transaction, | | | | | [address] | Provider Unknown | | | | | [place], [place] | [phone] | | | | | [address] | | | | | | [phone] | | | +--------+ + + + [...]
--- OUTSIDE RECORDS SUMMARY | ~2019-08-11 | XMS | Encounter Summary ---
Demographics + + + | Address | [address] | | | [place] [address] | + + + | Home Phone | | + + + | Preferred Language | Unknown | + + + | Marital Status | | + + + | Evangelical Affiliation | Unknown | + + + | Race | Unknown | + + + | Ethnic Group | Unknown | + + + Author + + + | Author | [facility] | | | and [place] | + + + | Organization | [facility] | | [...] Team Providers + +------+ + | Care Maintenance Supervisor 2Nd Shift Name | Role | Phone | + +------+ + | Toi Hwang DO | PCP | | + +------+ + Encounter Details +--------+ + + + + | Date | Type | Department | Care Team | Description | +--------+ + + + + | 10/29/ | Orders Only | [facility] | Antwan Joseph, | | | 2018 | | CARDIOLOGY REGINA | [address] | | | | | [address] | [place] [address] | | | | | [place], [place] | [phone] | | | | | [address] | | | | | | [phone] | | | +--------+ + + + [...]
--- OUTSIDE RECORDS SUMMARY | ~2019-08-11 | XMS | Encounter Summary ---
Demographics + + + | Address | [address] | | | [place] [address] | + + + | Home Phone | | + + + | Preferred Language | Unknown | + + + | Marital Status | | + + + | Methodist Affiliation | Unknown | + + + [...] Team Providers + +------+ + | Care Order Expediter Name | Role | Phone | + [...] | | | | [place], [place] | [phone] | | | | | [address] | | | | | | [phone] | | | +--------+ + + + [...]
--- OUTSIDE RECORDS SUMMARY | ~2019-08-11 | XMS | Encounter Summary ---
Demographics + + + | Address | [address] | | | [place] [address] | + + + | Home Phone | | + + + | Preferred Language | Unknown | + + + | Marital Status | | + + + | Jain Affiliation | Unknown | + + + | Race | Unknown | + + + | Ethnic Group | Unknown | + + + Author + + + | Author | [facility] | | | and [place] | + + + | Organization | [facility] | | | [...] Team Providers + +------+ + | Care Disaster Or Damage Control Specialist Name | Role | Phone | + +------+ + | Toi Hwang DO | PCP | | + +------+ + Encounter Details +--------+ + + + + | Date | Type | Department | Care Team | Description | +--------+ + + + + | 11/08/ | Orders Only | [facility] | Ulises Rocha, | | | 2016 | | CARDIOLOGY REGINA | [address] | | | | | [address] | [place] [address] [place], | | | | | [place], [place] | [place] [address] | | | | | [address] | | | | | | [phone] | (Fax) | | +--------+ + + [...]
--- OUTSIDE RECORDS SUMMARY | ~2019-08-11 | XMS | Encounter Summary ---
Demographics + + + | Address | [address] | | | [place] [address] | + + + | Home Phone | | + + + | Preferred Language | Unknown | + + + | Marital Status | | + + + | Yazdanism Affiliation | Unknown | + + + | Race | Unknown | + + + | Ethnic Group | Unknown | + + + Author + + + | Author | [facility] | | | and [place] | + + + | Organization | [facility] | | [...] Team Providers + +------+ + | Care Joint Filler Name | Role | Phone | + +------+ + PCP | Unavailable | + +------+ + Encounter Details +--------+ + + + + | Date | Type | Department | Care Team | Description | +--------+ + + + + | 04/17/ | Orders Only | [facility] | Ulises Rocha, | | | 2018 | | CARDIOLOGY REGINA | [address] | | | | | [address] | [place], | | | | | [place] | [place] [address] | | | | | [address] | [phone] | | | | | [phone] | | | +--------+ + + + [...]
--- OUTSIDE RECORDS SUMMARY | ~2019-08-11 | XMS | Encounter Summary ---
Demographics + + + | Address | [address] | | | [place] [address] | + + + | Home Phone | | + + + | Preferred Language | Unknown | + + + | Marital Status | | + + + | Taoism Affiliation | Unknown | + + + | Race | Unknown | + + + | Ethnic Group | Unknown | + + + Author + + + | Author | [facility] | | | and [place] | + + + | Organization | [facility] | | [...] Team Providers + +------+ + | Care Household Manager Name | Role | Phone | [...] | | | | [place], [place] | [phone] | | | | | [address] | | | | | | [phone] | | | +--------+ + + + [...]
--- OUTSIDE RECORDS SUMMARY | ~2019-08-11 | XMS | Encounter Summary ---
Demographics + + + | Address | [address] | | | [place] [address] | + + + | Home Phone [...] Team Providers + +------+ + | Care Loom Fixer Apprentice Name | Role | Phone | + [...] | | | | [place], [place] | [phone] | | | | | [address] | | | | | | [phone] | | | +--------+ + + + [...]
--- OUTSIDE RECORDS SUMMARY | ~2019-08-11 | XMS | Encounter Summary ---
Demographics + + + | Address | [address] | | | [place] [address] | + + + | Home Phone | | + + + | Preferred Language | Unknown | + + + | Marital Status | | + + + | Baptist Affiliation | Unknown | + + + | Race | Unknown | + + + | Ethnic Group | Unknown | + + + Author + + + | Author | [facility] | | | and [place] | + + + | Organization | [facility] | | [...] Team Providers + +------+ + | Care Web Development Intern Name | Role | Phone | + +------+ + | Toi Hwang DO | PCP | | + +------+ + Encounter Details +--------+ + + + + | Date | Type | Department | Care Team | Description | +--------+ + + + + | 07/16/ | Orders Only | [facility] | Eusebia Rocha, | | | 2017 | | CARDIOLOGY REGINA | [address] | | | | | ECHO [address] | [place], | | | | | [place] | [place] [address] | | | | | [address] | [phone] | | | | | [phone] | | | +--------+ + + + [...] history of a DeBakey type 1 - [place] type A -dissection) | | | extending [...] MV A Aj: 0.79 m/s MV Dec Tate: | | | 1.95 m/s2 MV DecT: 216.18 ms MV E Aj: 0.42 m/s MV E/A Ratio: | | | 0.53 MV PHT: 62.69 ms MVA By PHT: 3.50 cm2 Septal e': | | | 0.04 m/s Septal E/e': 8.55 Lateral e': 0.12 m/s Lateral E/e': | | | 3.50 Enforcement Manager: LUÍS Authenticated by: EUSEBIA ROCHA MD | | | Report Date/Time: -- [id number]:37 | | + + + + + [...] a DeBakey | | type 1 - [place] type A -dissection) extending to the abdominal [...] cmLVPWd: 1.08 cmLVOT | | Area: 4.78 [id number] Diam: 2.46 cm%FS: 21.22 %EF(Teich): 42.76 %ESV(Teich): [...] | | (A-L): 17.08 ml/m2LAAs A2C: 17.41 hl2WIWYH A-L A2C: 57.33 mlLALs A2C: 4.48 | | cmLAAs A4C: 11.37 mx8HLKNN A-L A4C: 26.00 mlLALs A4C: 4.22 cmRAAs: 14.31 | | vu2ZMARV A-L: 37.22 mlRAESV MOD: 35.25 mlRALs: 4.66 cmTAPSE: 2.05 cmAV maxPG: | | 11.24 mmHgAV meanP.51 mmHgAV Vmax: 1.67 m/Gila Vmean: 1.21 m/Gila VTI: 31.84 | | cmAVA Vmax: 2.47 cm2AVA (VTI): 2.30 sb9EAOR maxP.01 mmHgLVOT meanP.49 | | mmHgLVSI Dopp: 31.49 ml/m2LVSV Dopp: 73.38 mlLVOT Vmax: 0.86 m/sLVOT Vmean: 0.55 | | m/sLVOT VTI: 15.33 cmMV A Aj: 0.79 m/sMV Dec Tate: 1.95 m/s2MV DecT: 216.18 | | msMV E Aj: 0.42 m/sMV E/A Ratio: 0.53MV PHT: 62.69 msMVA By PHT: 3.50 lh8Gxyouf | | e': 0.04 m/sSeptal E/e': 8.55Lateral e': 0.12 m/sLateral E/e': 3.50 | | Enforcement Manager: DHAuthenticated by: Carlos DEAL Date/Time: -- | | [id number]:10:[id number] IMPRESSION: 1. Overall left ventricular systolic function [...] A Aj: 0.79 m/s | |MV Dec Tate: 1.95 m/s2 | |MV DecT: 216.18 ms | |MV E Aj: 0.42 m/s | |MV E/A Ratio: 0.53 | |MV PHT: 62.69 ms | |MVA By PHT: 3.50 cm2 | |Septal e': 0.04 m/s | |Septal E/e': 8.55 | |Lateral e': 0.12 m/s | |Lateral E/e': 3.50 | | | |Enforcement Manager: | |Authenticated by: EUSEBIA ROCHA MD | |Report Date/Time: [id number]:10:37 | | | |IMPRESSION: | |1. Overall [...]
--- OUTSIDE RECORDS SUMMARY | ~2019-08-11 | XMS | Clinical Summary ---
Demographics + + + | Address | [address] | | | [place] [address] | + + + | Home Phone | | + + + | Preferred Language | Unknown | + + + | Marital Status | | + + + | Latter-Day Affiliation | Unknown | + + + | Race | Unknown | + + + | Ethnic Group | Unknown | + + + Author + + + | Author | [facility] ([facility]ical [facility] of | | | 11-07-18) | + + + | Organization | [facility] ([facility]ical [facility] | | | 11-07-18) [...] Team Providers + +------+ + | Care Hide Inspector Name | Role | Phone | [...] +------+-------+ + | MEDICARE | MEDICA | [id number] | | | [address] | | | [place] | | | | [place], [place] [address] | | | IP-OP | | | | | + +--------+ +------+-------+ + | AETNA | AETNA | [id number] | | | | | | - [...] | | | [place] | | | [phone] | [address] | + +--------+ +--------+ + +
[~2019-08-11 18:03] MED LIST: ARIXTRA2.5 MG/0.5 SUB-Q; ARIXTRA7.5 MG/0.6 SUB-Q; ASPIR-LOW81 MG PO; ATORVASTATIN CA80 MG PO; COUMADIN2.5 MG PO; FAMOTIDINE40 MG PO; FENOFIBRATE160 MG PO; HUMALOG100 UNIT/1 SUB-Q; HUMULIN N100 UNIT/1 SUB-Q; HYDROCODON-ACE1 EAC8 PO; JANUMET XR 50-1 EACH PO; JANUVIA50 MG PO; LOSARTAN POTASS25 MG PO; MELATONIN5 M2 PO; METFORMIN HCL1000 MG PO; METFORMIN HCL500 M1 PO; METOPROLOL SUC100 MG PO; METOPROLOL SUCC50 MG PO; NORCO 10-325 T1 EACH PO; OXYCODON-ACETA1 EAC2 PO; REQUIP0.5 MG PO; TAMSULOSIN HCL0.4 MG PO; TOPROL XL100 MG PO; TRESIBA FL200 UNIT/1 SUB-Q; VASCEPA1 GM PO; VICTOZA 2-0.6 MG/0.1 SUB-Q; WARFARIN SODIUM5 MG PO
[2019-08-11] MEDS ORDERED: PYRIDIUM200 MG PO (20:44)
== END 2019-08-11 21:03 | disposition home or self-care (01) ==
LOC: ED 18:03
DX: N21.0 Calculus in bladder (principal); E78.5 Hyperlipidemia, unspecified; E11.9 Type 2 diabetes mellitus without complications; I10 Essential (primary) hypertension; Z88.8 Allergy status to other drugs, medicaments and biological substances; Z79.4 Long term (current) use of insulin; Z79.899 Other long term (current) drug therapy
CPT/HCPCS: 51702; 51798; 81001; 99283-25

== ENCOUNTER 2020-11-12 16:08 | Inpatient (IN) | payer MEDICARE, OTHER ==
[~2020-11-12] VITALS: Ht 190.5 cm; Wt 102.0 kg
[~2020-11-12 16:08] MED LIST changes: +BUPROPION XL150 MG PO; +BUPROPION XL300 MG PO; +BYDUREON B2 MG/0.85 SUB-Q; +CITALOPRAM HBR20 MG PO; -COUMADIN2.5 MG PO; +LANTUS SOL100 UNIT/1 SUB-Q; +NOVOLIN N100 UNIT/2 SUB-Q; +OMEGA-3 ACID ETH1 GM PO; +PYRIDIUM200 MG PO; -REQUIP0.5 MG PO; +ROPINIROLE HCL0.5 MG PO; +WARFARIN SODIU2.5 MG PO
--- NOTE | 2020-11-14 14:29 | EKG ---
[facility] [address] [facility] [place] [address] Signed Normal sinus rhythm Possible Left atrial enlargement Left axis deviation Nonspecific intraventricular block Possible Anterolateral infarct (cited on or before 12-NOV-2020) Abnormal ECG When compared with ECG of 12-NOV-2020 16:13, (Unconfirmed) Serial changes of Anterior infarct present Confirmed by SMITH CONLEY MD ([id number]) on 11/14/2020 2:29:32 PM Electronically Signed By: SMITH CONLEY MD 11/14/20 1429 PATIENT NAME: VIDA RODAS Electrocardiogram DATE OF : 58 PHYSICIAN: SMITH CONLEY MD REPORT #: [id number] REPORT IS CONFIDENTIAL AND NOT TO BE RELEASED WITHOUT AUTHORIZATION
--- NOTE | 2020-11-14 14:29 | EKG ---
[facility] [address] [place] [address] Signed Normal sinus rhythm Possible Left atrial enlargement Left axis deviation Nonspecific intraventricular block Cannot rule out Inferior infarct (masked by fascicular block?) , age undetermined Possible Anterolateral infarct , age undetermined Abnormal ECG When compared with ECG of 12-MAY-2016 13:47, Vent. rate has increased BY [address] elevation now present in Inferior leads T wave inversion no longer evident in Inferior leads Confirmed by SMITH CONLEY MD ([id number]) on 11/14/2020 2:28:44 PM Electronically Signed By: SMITH CONLEY MD 11/14/20 1429 PATIENT NAME: VIDA RODAS Electrocardiogram DATE OF : 58 PHYSICIAN: SMITH CONLEY MD REPORT #: [id number] REPORT IS CONFIDENTIAL AND NOT TO BE RELEASED WITHOUT AUTHORIZATION
[2020-11-15] MEDS ORDERED: ARIXTRA10 MG/0.8 SUB-Q (10:59)
[2020-11-15] MEDS ORDERED: WARFARIN SODIUM5 MG PO (10:59)
[2020-11-15] MEDS ORDERED: WARFARIN SODIU2.5 MG PO (10:59)
== END 2020-11-15 12:45 | disposition home or self-care (01) | DRG 66 ==
LOC: ED 16:08 → MS 21:03
PROVIDERS: ADMIT Internal Medicine; ATTEND Internal Medicine
DX: I63.10 Cerebral infarction due to embolism of unspecified precerebral artery (principal); Z20.822 Contact with and (suspected) exposure to COVID-19; F80.2 Mixed receptive-expressive language disorder; R77.8 Other specified abnormalities of plasma proteins; E11.65 Type 2 diabetes mellitus with hyperglycemia; I10 Essential (primary) hypertension; G47.33 Obstructive sleep apnea (adult) (pediatric); E78.5 Hyperlipidemia, unspecified; F39 Unspecified mood [affective] disorder; Z98.890 Other specified postprocedural states; Z90.49 Acquired absence of other specified parts of digestive tract; Z95.2 Presence of prosthetic heart valve; Z88.8 Allergy status to other drugs, medicaments and biological substances; Z79.01 Long term (current) use of anticoagulants; Z79.82 Long term (current) use of aspirin; Z79.899 Other long term (current) drug therapy; Z79.4 Long term (current) use of insulin
CPT/HCPCS: 70450; 70496; 70498; 71045; 80053; 84484; 85025; 85610; 92523; 93005; 93010; 93306; 97110; 97161; 97165; A9270; C9803; J1652; J1815; Q9967; U0003

== ENCOUNTER 2022-06-16 09:02 | Emergency (ER) | payer MEDICARE, OTHER ==
[~2022-06-16] VITALS: Ht 193 cm; Wt 108.1 kg
[~2022-06-16 09:02] MED LIST changes: +AMOXICILLIN500 MG PO; +ARIXTRA10 MG/0.8 SUB-Q; +CARVEDILOL25 MG PO; +COZAAR50 MG PO; +FONDAPARIN10 MG/0.8 SUB-Q; +JARDIANCE10 MG PO; +LEVETIRACETAM500 MG PO; +LEVETIRACETAM750 MG PO; +SPIRONOLACTONE25 MG PO; +TRULICITY1.5 MG/0.5 SUB-Q
--- OUTSIDE RECORDS SUMMARY | 2022-06-16 09:10 | XMS ---
PreManage Notification: VIDA RODAS Security Engine Testing Supervisor Events No recent Security Events currently on file CRITERIA MET - [facility] - 2 Visits in 30 Days CARE PROVIDERS There are no care providers on record at this time. Raffaele has no Care Guidelines for this patient. Pricila VISIT COUNT (12 MO.) 1 [facility] 4 [facility] [place] TOTAL 5 NOTE: Visits indicate total known visits. ED/UCC VISIT TRACKING (12 MO.) 06/16/2022 09:02 [facility] TYPE: Emergency COMPLAINT: - EXTREMITY PAIN/INJURY 06/01/2022 18:26 [facility] [place] TYPE: Emergency COMPLAINT: - STROKE SYMPTOMS DIAGNOSES: - Type 2 diabetes mellitus without complications - Essential (primary) hypertension - Other termite control service representative (current) drug therapy - Contact with and (suspected) exposure to COVID-19 - [facility] (current) use of anticoagulants - Hyperlipidemia, unspecified - Unspecified convulsions - watermelon harvesting supervisor (current) use of oral hypoglycemic drugs - Allergy status to other drugs, medicaments and biological substances - Altered mental status, unspecified - watermelon harvesting supervisor (current) use of aspirin 12/20/2021 02:33 [facility] TYPE: Emergency DIAGNOSES: 23920. Trauma transfer 12/19/2021 20:10 [facility] [place] TYPE: Emergency COMPLAINT: - SEIZURE DIAGNOSES: - Respiratory failure, unspecified with hypoxia - Traumatic subdural hemorrhage without loss of consciousness, initial encounter - Presence of prosthetic heart valve - Type 2 diabetes mellitus with ketoacidosis without coma - Allergy status to other drugs, medicaments and biological substances - Contact with and (suspected) exposure to COVID-19 - Essential (primary) hypertension - Sepsis, unspecified organism - watermelon harvesting supervisor (current) use of anticoagulants - watermelon harvesting supervisor (current) use of insulin - Unspecified fall, initial encounter - Unspecified convulsions 08/13/2021 10:[address] [facility] [place] TYPE: Emergency COMPLAINT: - FALL,LOC DIAGNOSES: - Unspecified fall, initial encounter - [facility] (current) use of insulin - Presence of other heart-valve replacement - Type 2 diabetes mellitus without complications - Essential (primary) hypertension - Altered mental status, unspecified - Hyperlipidemia, unspecified - Unspecified place in apartment as the place of occurrence of the external cause - [facility] (current) use of aspirin - Other jail (current) drug therapy - Concussion without loss of consciousness, initial encounter - Allergy status to other drugs, medicaments and biological substances - watermelon harvesting supervisor (current) use of anticoagulants - Dannie coma scale score 9-12, in the field [EMT or ambulance] INPATIENT VISIT TRACKING (12 MO.) 06/02/2022 00:14 [facility] TYPE: General Medicine DIAGNOSES: - Epilepsy, unspecified, not intractable, with status epilepticus - Seizures 12/20/2021 02:33 [facility] TYPE: General Medicine DIAGNOSES: 79623. Traumatic subdural hemorrhage with loss of consciousness of unspecified duration, initial encounter 49544. Traumatic subdural hemorrhage with loss of consciousness status unknown, initial encounter 91014. Shock, unspecified 79836. Traumatic subdural hemorrhage with loss of consciousness status unknown, initial encounter 87969. Other toxic encephalopathy 61654. Traumatic subdural hemorrhage with loss of consciousness status unknown, initial encounter 01274. Aortic aneurysm of unspecified site, without rupture [email or web address]
[2022-06-16] MEDS ORDERED: HYDROCODON-ACE1 EA11 PO (09:42)
== END 2022-06-16 09:50 | disposition home or self-care (01) ==
LOC: ED 09:02
DX: S33.6XXA Sprain of sacroiliac joint, initial encounter (principal); M54.42 Lumbago with sciatica, left side; E78.5 Hyperlipidemia, unspecified; I10 Essential (primary) hypertension; E11.9 Type 2 diabetes mellitus without complications; Z88.8 Allergy status to other drugs, medicaments and biological substances; Z79.899 Other long term (current) drug therapy; Z79.4 Long term (current) use of insulin; Z79.82 Long term (current) use of aspirin; Z79.01 Long term (current) use of anticoagulants; X58.XXXA Exposure to other specified factors, initial encounter
CPT/HCPCS: 99283